=== PATIENT | female | born 1945 | race Caucasian/White ===

== ENCOUNTER 2018-02-14 09:16 | Day surgery (SDC) | payer MEDICARE, BC ==
[2018-02-13 08:34] VITALS: BMI 35.6
[~2018-02-14 09:16] MED LIST: LACTATED RINGERS 1,000 ML IV SCH
[2018-02-14 09:48] VITALS: RESP 16; TEMP 97
[2018-02-14] MEDS ORDERED: LIDOCAINE 1% 20 ML VIAL (10MG/ML) FOR IV START INTRADERMA ONE (09:53)
[2018-02-14] MEDS ORDERED: ACETAMINOPHEN TAB 500 MG TAB PO ONE (09:58)
[2018-02-14] MEDS ORDERED: PROPOFOL 10 MG/ML 20 ML VIAL IV ONE (13:20)
[2018-02-14] MEDS ORDERED: LIDOCAINE 1% INJ 10MG/ML (20 ML MDV) ONE (13:20)
[2018-02-14] MEDS ORDERED: fentaNYL (PF) 50 MCG/ML 2 ML AMP ONE (13:20)
--- NOTE | 2018-02-14 14:04 | P.PCN ---
Date of Procedure: 02/14/18 Procedure(s) Performed: Procedure: Colonoscopy and biopsy. Preoperative diagnosis: Rectal bleeding. Postoperative diagnosis: 1. 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 2. Isolated erosion in the terminal ileum of uncertain significance, biopsies obtained. 3. Normal colon exam biopsies obtained. 4. Low-grade internal hemorrhoids not bleeding at the time of this exam. Preparation: HalfLytely prep. Sedation: Was provided by anesthesia. Brief clinical history: The patient is a 72-year-old female who is scheduled for this evaluation because of intermittent rectal bleeding. She apparently had a colonoscopy around 2 years ago and was told she had hemorrhoids and she had polyps removed as well. Procedure: With the patient on her left lateral decubitus position and after informed consent and adequate sedation the perianal area was inspected and it showed external hemorrhoids and 2 fistulas openings on the right side and surrounding erythema and edema and excoriation but no spontaneous bleeding. No masses were felt on digital rectal examination. The Olympus CFQ 160L video colonoscope was then inserted in the rectum and the usual fashion and advanced to the cecum. I intubated the ileocecal valve and examined the terminal ileum. There was an isolated erosion in the terminal ileum of uncertain clinical significance, otherwise, the mucosa appeared healthy. The colon appeared healthy with no edema, erythema, friability, ulceration, exudation or spontaneous bleeding. I retroflexed endoscope in the rectum before the endoscope was withdrawn. There were low-grade internal hemorrhoids noted but no bleeding. I obtained random colon biopsies in addition to the biopsies in the terminal ileum. The patient tolerated the procedure well. Plan: The patient was reassured. Will await biopsy results and make further plans based on her course and biopsy results. She'll follow-up in the office as planned and I will keep you updated on her progress.
[2018-02-14 14:33] VITALS: BP 142/88; PULSE 60
== END 2018-02-14 14:53 | disposition home or self-care (01) ==
LOC: ORWHC2ENDO 09:16
DX: K52.9 Noninfective gastroenteritis and colitis, unspecified (principal); K62.5 Hemorrhage of anus and rectum; K60.3 Anal fistula; K63.3 Ulcer of intestine; K64.8 Other hemorrhoids; Z86.010 Personal history of colon polyps; K57.30 Diverticulosis of large intestine without perforation or abscess without bleeding; I10 Essential (primary) hypertension; E78.5 Hyperlipidemia, unspecified; I25.10 Atherosclerotic heart disease of native coronary artery without angina pectoris; K21.9 Gastro-esophageal reflux disease without esophagitis; Z95.1 Presence of aortocoronary bypass graft; Z79.899 Other long term (current) drug therapy
CPT/HCPCS: 88305; 45380; J2001; J3010; J2704

== ENCOUNTER 2018-05-29 16:16 | Emergency (ER) | payer MEDICARE, BC ==
[2018-05-29 16:39] VITALS: TEMP 97.8
--- NOTE | 2018-05-29 18:27 | US ---
EXAMINATION TYPE: US venous doppler duplex LE RT DATE OF EXAM: 05/29/2018 6:15 PM COMPARISON: NONE CLINICAL HISTORY: Pain. SIDE PERFORMED: TECHNIQUE: The lower extremity deep venous system is examined utilizing real time linear array sonog carlene with graded compression, doppler sonography and color-flow sonography. VESSELS IMAGED: External Iliac Vein (EIV) Common Femoral Vein Deep Femoral Vein Greater Saphenous Vein * Femoral Vein Popliteal Vein Right Leg: Positive for DVT in the Common Femoral Vein, Deep Femoral Vein and Popliteal Mario. IMPRESSION: There is deep venous thrombosis that appears acute in the right leg involving the femoral and popliteal vein.
[2018-05-29 19:32] LABS: Basophils % (A) 0 %; Eosinophils # (A) 0.5 k/uL (0-0.7); Eosinophils % (A) 6 %; HGB 13.3 gm/dL (11.4-16.0); Lymphocytes # (A) 1.6 k/uL (1.0-4.8); Lymphocytes % (A) 17 %; MCH 29.7 pg (25.0-35.0); MCHC 32.4 g/dL (31.0-37.0); MCV 91.6 fL (80.0-100.0); Monocytes # (A) 0.9 k/uL (0-1.0); Monocytes % (A) 10 %; Neutrophils # (A) 5.8 k/uL (1.3-7.7); Neutrophils % (A) 64 %; Platelet Count 218 k/uL (150-450); RBC 4.48 m/uL (3.80-5.40); WBC 9.1 k/uL (3.8-10.6)
[2018-05-29 19:41] LABS: INR 1.1 (<1.2); Partial Thromboplastin Time 23.2 sec (22.0-30.0); Prothrombin Time 10.3 sec (9.0-12.0)
[2018-05-29 19:42] LABS: Albumin 3.6 g/dL (3.5-5.0); Calcium 8.9 mg/dL (8.4-10.2); Potassium 3.8 mmol/L (3.5-5.1); Total Bilirubin 0.3 mg/dL (0.2-1.3)
[2018-05-29] MEDS ORDERED: HEPARIN SODIUM,PORCINE 5,000 UNIT/ML 1 ML VIAL IV PRN (19:50)
[2018-05-29] MEDS ORDERED: HEPARIN SODIUM,PORCINE 10,000 UNIT/ML 1 ML VIAL IV ONE (19:50)
[2018-05-29] MEDS ORDERED: HEPARIN SOD,PORK IN 0.45% NACL 25,000 UNIT in 0.45% NACL 1 500ML.BAG IV SCH (20:00)
--- NOTE | 2018-05-29 20:43 | CT ---
EXAMINATION TYPE: CT chest angio for PE DATE OF EXAM: 05/29/2018 COMPARISON: None HISTORY: Positive DVT CT DLP: 268.4 mGycm Automated exposure control for dose reduction was used. CONTRAST: CT Chest for pulmonary embolism performed with with IV Contrast, patient injected with 60 mL of Isovu e 370. There are 3-D post processed images. FINDINGS: There is some mild coarsening of interstitial pulmonary markings. There is hiatal hernia. Heart is sl ightly enlarged. There are multiple filling defects in right lower lobe pulmonary artery. There is filling defect in t he proximal right upper lobe pulmonary artery. The left pulmonary arteries appear normal. There is no mediastinal adenopathy. There are no hilar masses. The bony thorax is intact. Thoracic aorta is inta ct. There is no evidence of aneurysm or dissection. There is mild atheromatous change. Interventricular septum is in normal position. Right ventricle is not enlarged. IMPRESSION: There is emboli in the right lower lobe pulmonary artery and to lesser extent extending into the righ t upper lobe pulmonary artery. No evidence of right heart strain. This exam was discussed with CONNIE Alvarez at 8:40 PM.
--- NOTE | 2018-05-29 21:00 | ED ---
General Adult HPI - General Source: patient, RN notes reviewed Mode of arrival: ambulatory Limitations: no limitations <Antonio Mandel P - Last Filed: 05/29/18 21:12> <Lyubov Mcclure P - Last Filed: 05/29/18 22:12> - General Chief complaint: Extremity Injury, Lower Stated complaint: Leg Pain/swelling Time Seen by Provider: 05/29/18 17:33 - History of Present Illness Initial comments: 73-year-old female with a history of coronary artery disease, GERD, hyperlipidemia, hypertension presents to the emergency department for a chief complaint of right lower extremity swelling 10 days. Patient states that about 10 days ago she spent 2 days driving quite frequently for extended periods. Patient states that at that time she felt a pain behind her right knee but did not think anything of it. She states that since that time she has had progressive swelling and erythema in the right lower leg. 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 Patient denies any shortness of breath or chest pain. Patient denies any history of blood clots including DVT, PE, or stroke. Patient denies being on any blood thinners. Patient has no other complaints at this time including shortness of breath, chest pain, abdominal pain, nausea or vomiting, headache, or visual changes. (Antonio Mandel) - Related Data Home Medications Medication Instructions Recorded Confirmed Carvedilol [Coreg] 6.25 mg PO BID 11/30/15 05/29/18 Aspirin 81 mg PO DAILY 02/13/18 05/29/18 [place]-3 Fatty Acids/Fish Oil [Fish 1 cap PO DAILY 02/13/18 05/29/18 Oil 1,000 mg Softgel] Rosuvastatin [Crestor] 20 mg PO Q48H 02/13/18 05/29/18 Ubidecarenone [Co Q-10] 200 mg PO DAILY 02/13/18 05/29/18 Calcium Carbonate [Calcium] 600 mg PO DAILY 05/29/18 05/29/18 Docusate [Colace] 100 mg PO DAILY 05/29/18 05/29/18 Ibuprofen [Motrin Ib] 200 mg PO Q6H PRN 05/29/18 05/29/18 Mesalamine [Lialda] 1.2 gm PO TID 05/29/18 05/29/18 Omeprazole 40 mg PO DAILY 05/29/18 05/29/18 metroNIDAZOLE [Flagyl] 500 mg PO TID 05/29/18 05/29/18 Allergies Allergy/AdvReac Type Severity Reaction Status Date / Time No Known Allergies Allergy Verified 05/29/18 17:31 Review of Systems ROS Other: All systems not noted in ROS Statement are negative. <Antonio Mandel P - Last Filed: 05/29/18 21:12> ROS Other: All systems not noted in ROS Statement are negative. <Lyubov Mcclure P - Last Filed: 05/29/18 22:12> ROS Statement: Those systems with pertinent positive or pertinent negative responses have been documented in the HPI. Past Medical History Past Medical History: Coronary Artery Disease (CAD), GERD/Reflux, Hyperlipidemia , Hypertension Additional Past Medical History / Comment(s): "sore" by the rectum w/ some bleeding,painful with bowel movements History of Any Multi-Drug Resistant Organisms: None Reported Past Surgical History: Coronary Bypass/CABG, Heart Catheterization Additional Past Surgical History / Comment(s): deviated septum repair Past Anesthesia/Blood Transfusion Reactions: No Reported Reaction Past Psychological History: No Psychological Hx Reported Smoking Status: Never smoker Past Alcohol Use History: None Reported Past Drug Use History: None Reported - Past Family History Mother Family Medical History: No Reported History <Antonio Mandel P - Last Filed: 05/29/18 21:12> General Exam Limitations: no limitations General appearance: alert, in no apparent distress Head exam: Present: atraumatic, normocephalic, normal inspection Eye exam: Present: normal appearance, PERRL, EOMI. Absent: scleral icterus, conjunctival injection, periorbital swelling ENT exam: Present: normal exam, normal oropharynx, mucous membranes moist, normal external ear exam Neck exam: Present: normal inspection, full ROM. Absent: tenderness, meningismus, lymphadenopathy Respiratory exam: Present: normal lung sounds bilaterally. Absent: respiratory distress, wheezes, rales, rhonchi, stridor Cardiovascular Exam: Present: regular rate, normal rhythm, normal heart sounds. Absent: systolic murmur, diastolic murmur, rubs, gallop, clicks Neurological exam: Present: alert, oriented X3, CN II-XII intact Psychiatric exam: Present: normal affect, normal mood <TequilaAntonio arnett P - Last Filed: 05/29/18 21:12> Vital Signs 05/29/18 05/29/18 05/29/18 16:35 19:20 20:00 Temperature 97.8 F Pulse Rate 78 71 86 Respiratory 108 H 17 16 Rate Blood Pressure 185/95 176/85 O2 Sat by Pulse 99 98 100 Oximetry 05/29/18 21:30 Temperature Pulse Rate 60 Respiratory 16 Rate Blood Pressure 172/78 O2 Sat by Pulse 100 Oximetry EKG Findings - EKG Comments: EKG Findings:: Normal sinus rhythm, ventricular rate 60, FL interval 194, QRS duration 84, QTC 420, T-wave inversion in anterior leads <Antonio Mandel P - Last Filed: 05/29/18 21:12> Medical Decision Making - Lab Data Result diagrams: 05/29/18 18:53 05/29/18 18:53 - EKG Data -: EKG Interpreted by Me (and Dr Mcclure) When compared to previous EKG there are: previous EKG unavailable - Radiology Data Radiology results: report reviewed, image reviewed <TequilaSandraAntonio P - Last Filed: 05/29/18 21:12> - Lab Data Result diagrams: 05/29/18 18:53 05/29/18 18:53 <Lyubov Mcclure P - Last Filed: 05/29/18 22:12> - Medical Decision Making 73-year-old female with a history of GERD, hypertension, hyperlipidemia presents to the emergency department for a chief complaint of right lower extremity swelling and erythema 10 days. Patient states she was driving quite often for extended periods for 2 days about 10 days ago. She states that at that time she noticed the pain in her stereo right knee. Patient states that since that time she has had progressive erythema and edema of the right lower extremity. Patient denies a history of DVT or PE. She is not currently on any blood thinners. At when patient arrives to the emergency department her vitals are stable. Respiratory rate was incorrectly recorded as 108 and was instead 18. Patient is well-appearing and 99% on room air. Ultrasound did reveal a positive DVT in the right common femoral vein, deep femoral vein, popliteal vein. Patient was started on high intensity heparin. Because of this labs were ordered and CT a was also ordered. CBC and CMP unremarkable. Coag patient panel within normal limits. CT chest angiogram did reveal an emboli in the right lower lobe pulmonary artery and to a lesser extent extending into the right upper lobe pulmonary artery. No evidence of right heart strain. EKG was ordered at this time which did show a normal sinus rhythm with a ventricular rate of 60. Patient does have T-wave abnormalities in anterior leads. History of CABG years ago. Cardiac panel and troponins were ordered. Patient will be admitted. (Antonio Mandel) I personally saw and examined the patient. I reviewed and agree with the mid- level provider findings including all diagnostic interpretations and treatment plans as written unless otherwise stated. I was present for mckeon portions of any procedures performed. Patient care was discussed with the admitting physician Dr. dickey who stated that based on EKG with no acute right heart strain, CT with no acute right heart strain, negative troponins the patient is stable for discharge home on oral anticoagulation. Patient is agreeable with this plan. Patient was discharged home with by mouth L Palmira 10 mg twice a day for 7 days. Return parameters and follow-up was stressed to the patient. (Lyubov Mcclure) - Lab Data Lab Results 05/29/18 05/29/18 05/29/18 Range/Units 18:53 18:53 18:53 WBC 9.1 (3.8-10.6) k/uL RBC 4.48 (3.80-5.40) m/uL Hgb 13.3 (11.4-16.0) gm/dL Hct 41.0 (34.0-46.0) % MCV 91.6 (80.0-100.0) fL MCH 29.7 (25.0-35.0) pg MCHC 32.4 (31.0-37.0) g/dL RDW 13.0 (11.5-15.5) % Plt Count 218 (150-450) k/uL Neutrophils % 64 % Lymphocytes % 17 % Monocytes % 10 % Eosinophils % 6 % Basophils % 0 % Neutrophils # 5.8 (1.3-7.7) k/uL Lymphocytes # 1.6 (1.0-4.8) k/uL Monocytes # 0.9 (0-1.0) k/uL Eosinophils # 0.5 (0-0.7) k/uL Basophils # 0.0 (0-0.2) k/uL PT 10.3 (9.0-12.0) sec INR 1.1 (<1.2) APTT 23.2 (22.0-30.0) sec Sodium 139 (137-145) mmol/L Potassium 3.8 (3.5-5.1) mmol/L Chloride 105 (98-107) mmol/L Carbon Dioxide 25 (22-30) mmol/L Anion Gap 9 mmol/L BUN 22 H (7-17) mg/dL Creatinine 1.02 (0.52-1.04) mg/dL Est GFR (CKD-EPI)AfAm 64 (>60 ml/min/1.73 sqM) Est GFR (CKD-EPI)NonAf 55 (>60 ml/min/1.73 sqM) Glucose 67 L (74-99) mg/dL Calcium 8.9 (8.4-10.2) mg/dL Magnesium (1.6-2.3) mg/dL Total Bilirubin 0.3 (0.2-1.3) mg/dL AST 22 (14-36) U/L ALT 23 (9-52) U/L Alkaline Phosphatase 50 (38-126) U/L Total Creatine Kinase (30-135) U/L CK-MB (CK-2) (0.0-2.4) ng/mL CK-MB (CK-2) Rel Index Troponin I (0.000-0.034) ng/mL Total Protein 7.0 (6.3-8.2) g/dL Albumin 3.6 (3.5-5.0) g/dL 05/29/18 05/29/18 Range/Units 18:53 19:20 WBC (3.8-10.6) k/uL RBC (3.80-5.40) m/uL Hgb (11.4-16.0) gm/dL Hct (34.0-46.0) % MCV (80.0-100.0) fL MCH (25.0-35.0) pg MCHC (31.0-37.0) g/dL RDW (11.5-15.5) % Plt Count (150-450) k/uL Neutrophils % % Lymphocytes % % Monocytes % % Eosinophils % % Basophils % % Neutrophils # (1.3-7.7) k/uL Lymphocytes # (1.0-4.8) k/uL Monocytes # (0-1.0) k/uL Eosinophils # (0-0.7) k/uL Basophils # (0-0.2) k/uL PT (9.0-12.0) sec INR (<1.2) APTT (22.0-30.0) sec Sodium (137-145) mmol/L Potassium (3.5-5.1) mmol/L Chloride (98-107) mmol/L Carbon Dioxide (22-30) mmol/L Anion Gap mmol/L BUN (7-17) mg/dL Creatinine (0.52-1.04) mg/dL Est GFR (CKD-EPI)AfAm (>60 ml/min/1.73 sqM) Est GFR (CKD-EPI)NonAf (>60 ml/min/1.73 sqM) Glucose (74-99) mg/dL Calcium (8.4-10.2) mg/dL Magnesium 2.2 (1.6-2.3) mg/dL Total Bilirubin (0.2-1.3) mg/dL AST (14-36) U/L ALT (9-52) U/L Alkaline Phosphatase (38-126) U/L Total Creatine Kinase 58 (30-135) U/L CK-MB (CK-2) 0.6 (0.0-2.4) ng/mL CK-MB (CK-2) Rel Index 1.0 Troponin I <0.012 (0.000-0.034) ng/mL Total Protein (6.3-8.2) g/dL Albumin (3.5-5.0) g/dL Disposition Time of Disposition: 21:14 <Antonio Mandel P - Last Filed: 05/29/18 21:12> Is patient prescribed a controlled substance at d/c from ED?: No <Lyubov Mcclure P - Last Filed: 05/29/18 22:12> Clinical Impression: Pulmonary embolism, DVT, femoral, acute Disposition: HOME SELF-CARE Condition: Good Instructions: Pulmonary Embolism (ED), Deep Vein Thrombosis (ED) Referrals: Damien Donahue MD [Primary Care Provider] - 1-2 days Addendum entered and electronically signed by Antonio Mandel PA-C 05/29/18 21 :19: Extremity exam: Right leg is erythematous and warm to touch. It is edematous and larger in diameter than left leg. DP pulse 2+. Sensation intact in lower extremity. Negative Homans sign. No pallor noted.
[2018-05-29] MEDS ORDERED: SODIUM CHLORIDE 0.9% 1,000 ML IV STA (21:11)
[2018-05-29] MEDS ORDERED: NALOXONE 0.4 MG/ML 1 ML VIAL IV PRN (21:15)
[2018-05-29 21:34] LABS: Creatine Kinase 58 U/L (30-135)
[2018-05-29 21:47] LABS: Creatine Kinase MB 0.6 ng/mL (0.0-2.4); Troponin I <0.012 ng/mL (0.000-0.034)
[2018-05-29] MEDS ORDERED: APIXABAN 5 MG TAB PO STA (22:14)
--- NOTE | 2018-05-29 22:17 | ED ---
Medical Decision Making - Lab Data Result diagrams: 05/29/18 18:53 05/29/18 18:53 Lab Results 05/29/18 05/29/18 05/29/18 Range/Units 18:53 18:53 18:53 WBC 9.1 (3.8-10.6) k/uL RBC 4.48 (3.80-5.40) m/uL Hgb 13.3 (11.4-16.0) gm/dL Hct 41.0 (34.0-46.0) % MCV 91.6 (80.0-100.0) fL MCH 29.7 (25.0-35.0) pg MCHC 32.4 (31.0-37.0) g/dL RDW 13.0 (11.5-15.5) % Plt Count 218 (150-450) k/uL Neutrophils % 64 % Lymphocytes % 17 % Monocytes % 10 % Eosinophils % 6 % Basophils % 0 % Neutrophils # 5.8 (1.3-7.7) k/uL Lymphocytes # 1.6 (1.0-4.8) k/uL Monocytes # 0.9 (0-1.0) k/uL Eosinophils # 0.5 (0-0.7) k/uL Basophils # 0.0 (0-0.2) k/uL PT 10.3 (9.0-12.0) sec INR 1.1 (<1.2) APTT 23.2 (22.0-30.0) sec Sodium 139 (137-145) mmol/L Potassium 3.8 (3.5-5.1) mmol/L Chloride 105 (98-107) mmol/L Carbon Dioxide 25 (22-30) mmol/L Anion Gap 9 mmol/L BUN 22 H (7-17) mg/dL Creatinine 1.02 (0.52-1.04) mg/dL Est GFR (CKD-EPI)AfAm 64 (>60 ml/min/1.73 sqM) Est GFR (CKD-EPI)NonAf 55 (>60 ml/min/1.73 sqM) Glucose 67 L (74-99) mg/dL Calcium 8.9 (8.4-10.2) mg/dL Magnesium (1.6-2.3) mg/dL Total Bilirubin 0.3 (0.2-1.3) mg/dL AST 22 (14-36) U/L ALT 23 (9-52) U/L Alkaline Phosphatase 50 (38-126) U/L Total Creatine Kinase (30-135) U/L Total Protein 7.0 (6.3-8.2) g/dL Albumin 3.6 (3.5-5.0) g/dL 05/29/18 05/29/18 Range/Units 18:53 19:20 WBC (3.8-10.6) k/uL RBC (3.80-5.40) m/uL Hgb (11.4-16.0) gm/dL Hct (34.0-46.0) % MCV (80.0-100.0) fL MCH (25.0-35.0) pg MCHC (31.0-37.0) g/dL RDW (11.5-15.5) % Plt Count (150-450) k/uL Neutrophils % % Lymphocytes % % Monocytes % % Eosinophils % % Basophils % % Neutrophils # (1.3-7.7) k/uL Lymphocytes # (1.0-4.8) k/uL Monocytes # (0-1.0) k/uL Eosinophils # (0-0.7) k/uL Basophils # (0-0.2) k/uL PT (9.0-12.0) sec INR (<1.2) APTT (22.0-30.0) sec Sodium (137-145) mmol/L Potassium (3.5-5.1) mmol/L Chloride (98-107) mmol/L Carbon Dioxide (22-30) mmol/L Anion Gap mmol/L BUN (7-17) mg/dL Creatinine (0.52-1.04) mg/dL Est GFR (CKD-EPI)AfAm (>60 ml/min/1.73 sqM) Est GFR (CKD-EPI)NonAf (>60 ml/min/1.73 sqM) Glucose (74-99) mg/dL Calcium (8.4-10.2) mg/dL Magnesium 2.2 (1.6-2.3) mg/dL Total Bilirubin (0.2-1.3) mg/dL AST (14-36) U/L ALT (9-52) U/L Alkaline Phosphatase (38-126) U/L Total Creatine Kinase 58 (30-135) U/L Total Protein (6.3-8.2) g/dL Albumin (3.5-5.0) g/dL Disposition Clinical Impression: Pulmonary embolism, DVT, femoral, acute Disposition: ADMITTED IP TO THIS HOSP Condition: Good Referrals: Damien Donahue MD [Primary Care Provider] - 1-2 days
[2018-05-29 22:55] VITALS: BP 170/79; PULSE 67; RESP 19
== END 2018-05-29 22:58 | disposition home or self-care (01) ==
LOC: EC 16:16
DX: I26.99 Other pulmonary embolism without acute cor pulmonale (principal); I82.411 Acute embolism and thrombosis of right femoral vein; R94.31 Abnormal electrocardiogram [ECG] [EKG]; E78.5 Hyperlipidemia, unspecified; I10 Essential (primary) hypertension; I25.10 Atherosclerotic heart disease of native coronary artery without angina pectoris; K21.9 Gastro-esophageal reflux disease without esophagitis; Z79.82 Long term (current) use of aspirin; Z79.899 Other long term (current) drug therapy; Z95.1 Presence of aortocoronary bypass graft; Z53.8 Procedure and treatment not carried out for other reasons
CPT/HCPCS: 99284; 96365; 96366; 96376; 36415; 93005; 80053; 82550; 82553; 83735; 84484; 85025; 85610; 85730; 93971; 71275; J1644 ×2; Q9967

== ENCOUNTER → 2018-09-20 | Outpatient (CLI) | payer MEDICARE, BC ==
--- NOTE | 2018-09-22 08:43 | MM ---
Reason for exam: screening (asymptomatic). Last mammogram was performed 4 years and 11 months ago. History: Patient is postmenopausal and had first child at age 36. Family history of breast cancer. Physical Findings: A clinical breast exam by your physician is recommended on an annual basis and results should be correlated with mammographic findings. MG Screening Mammo w CAD Bilateral CC and MLO view(s) were taken. Prior study comparison: October 19, 2013, bilateral digital screening mammo w/CAD. March 16, 2003, bilateral screening mammogram. Finding #1: There is a typically benign equal density (isodense), circumscribed oval mass located 3 cm from the nipple in the lower inner quadrant, middle position of the left breast. Finding #2: There are typically benign vascular, diffuse/scattered calcifications in both breasts. New finding and increase in size since October 19, 2013. ASSESSMENT: Incomplete: need additional imaging evaluation, BI-RAD 0 RECOMMENDATION: Special view mammogram of the left breast. If lesion persists on supplemental views, image directed ultrasound is recommended. [facility] will attempt to contact patient to return for supplemental views and ultrasound if indicated.
== END | disposition home or self-care (01) ==
LOC: RADMAMWWP 14:05
PROVIDERS: ATTEND Family Medicine
DX: Z12.31 Encounter for screening mammogram for malignant neoplasm of breast (principal)
CPT/HCPCS: 77067

== ENCOUNTER → 2018-10-18 | Outpatient (CLI) | payer MEDICARE, BC ==
--- NOTE | 2018-10-20 09:01 | MM ---
Reason for exam: additional evaluation requested from abnormal screening. Last mammogram was performed 1 month ago. History: Patient is postmenopausal, history of other cancer, and had first child at age 36. Family history of breast cancer. Physical Findings: Nurse Summary: 0.5cm nodule in the left breast at 2 o'clock (nurse roman). MG Work Up Mamm w CAD LT Spot compression CC, spot compression MLO, and LM view(s) were taken of the left breast. Prior study comparison: September 20, 2018, bilateral MG screening mammo w CAD. October 19, 2013, bilateral digital screening mammo w/CAD. The breast tissue is heterogeneously dense. This may lower the sensitivity of mammography. Finding: There is a 6 mm equal density (isodense) mass in the inner quadrant, central position of the left breast. These results were verbally communicated with the patient and result sheet given to the patient on 10/18/18. ASSESSMENT: Incomplete: need additional imaging evaluation, BI-RAD 0 RECOMMENDATION: Ultrasound of the left breast.
--- NOTE | 2018-10-20 09:02 | USB ---
Reason for exam: additional evaluation requested from abnormal screening. History: Patient is postmenopausal, history of other cancer, and had first child at age 36. Family history of breast cancer. US Breast Workup Limited LT Left limited breast ultrasound including focal area of concern, retroareolar and axilla demonstrates a 0.5 x 0.3 x 0.2cm oval, cystic lesion at 8 o'clock, believed to correspond to mammographic abnormality. These results were verbally communicated with the patient and result sheet given to the patient on 10/18/18. ASSESSMENT: Benign, BI-RAD 2 RECOMMENDATION: Return to routine screening mammogram schedule for both breasts.
== END | disposition home or self-care (01) ==
LOC: RADMAMWWP 15:16
PROVIDERS: ATTEND Family Medicine
DX: R92.8 Other abnormal and inconclusive findings on diagnostic imaging of breast (principal)
CPT/HCPCS: 77065

== ENCOUNTER → 2018-10-28 | Outpatient (CLI) | payer MEDICARE, BC ==
--- NOTE | 2018-10-30 16:00 | PE ---
EXAMINATION TYPE: PET CT fusion skull to thigh DATE OF EXAM: 10/28/2018 COMPARISON: CT chest for pulmonary embolism dated 05/29/2018 HISTORY: Squamous cell anal cancer. Initial evaluation. No prior chemotherapy, radiation, or surgery. TECHNIQUE: Following the intravenous administration of 12.538 mCi of F-18 FDG, whole body images are performed from the skull base to the midthigh. Images are reviewed on the computer in the coronal, axial, and sagittal planes. Reconstructed rotating images are created on independent workstation and reviewed on the computer. A localization and attenuation correction CT is performed in conjunction with the PET scan. SCAN: Initial treatment strategy. FINDINGS: Thoracic background: 2.69 Abdominal background: 3.52 SKULL BASE AND NECK: Right supraclavicular adenopathy is seen as described below. No additional susp icious foci of hypermetabolic uptake. CHEST, MEDIASTINUM, AND HILAR REGION: There is hypermetabolic uptake within numerous mediastinal lymp h nodes. Right paratracheal lymph node has a maximum SUV of 4.63. Pretracheal lymph node has a maximu m SUV of 4.94. Subcarinal lymph node has a maximum SUV of 6.84. Right supraclavicular adenopathy is a lso seen with a maximum SUV of 3.86. ABDOMEN AND PELVIS: Although this patient states there is been no surgical history sutures are seen a long the anal verge. Diffuse hypermetabolic uptake in a long segment is seen from the ischial tuberos ities to the anal verge. This has a maximum SUV of 7.4. A moderate hiatal hernia is seen. Diffuse FDG avidity throughout the gastric fundus and body is noted that could relate to gastritis. Endoscopy could assess the stomach. . OSSEOUS STRUCTURES: Hypometabolic within the right iliac bone and sacrum as well as the L5 and L4 jareth tebral body are seen, to a lesser degree throughout the remainder of the spine. Subtle lytic lesion i s noted within the right iliac bone on image 182 measuring 1.2 cm. This is also hypermetabolic with a maximum SUV of 2.[address]: Paranasal sinuses and mastoid air cells are well aerated. Moderate multilevel degenerative changes of the cervical spine are seen. Post CABG changes of the mediastinum are noted. Multifocal at electasis is present. No suspicious pulmonary mass. Mediastinal adenopathy is seen as described above . Moderate hiatal hernia is also described above. Ascending thoracic aorta is upper limits of normal size measuring 3.9 cm. The unenhanced liver is grossly unremarkable. The unenhanced spleen, and adren al glands, and left kidney are unremarkable. Emanating from the superior pole of the right kidney the re is a slightly hyperdense approximately 1 cm lesion or early characterize without contrast. This co uld relate to a solid lesion or hyperdense renal cyst (proteinaceous and/or hemorrhagic). Surgical sutures are seen near the anal verge. No local adenopathy is present. Few scattered colonic diverticula are seen without pericolonic fat stranding. IMPRESSION: 1. Although the patient denies surgical history hypermetabolic activity is seen along the anal verge surrounding surgical sutures with a maximum SUV of 7.4 cm thought to represent the patient's primary neoplasm. No local adenopathy. 2. Hypermetabolic mediastinal and right supraclavicular lymph nodes are noted with marked hypermetabo lic activity of 6.8 of a subcarinal lymph node. Therefore these are unlikely to be reactive in concer evaristo for metastasis. No primary lung lesion is identified. Therefore bronchoscopy with lymph node tis jessica sampling could be performed. 3. Subtle lytic right iliac bone lesion is hypometabolic and nonspecific. This could relate to a eligio gn etiology. 4. Slightly hyperdense right superior pole renal lesion for which renal ultrasound is recommended as this could represent a proteinaceous/hemorrhagic cyst or small solid mass.
== END | disposition home or self-care (01) ==
LOC: RADPETMAIN 10:48
PROVIDERS: ATTEND Internal Medicine Hematology & Oncology
DX: C44.520 Squamous cell carcinoma of anal skin (principal); M89.9 Disorder of bone, unspecified; N28.9 Disorder of kidney and ureter, unspecified
CPT/HCPCS: 78815; A9552

== ENCOUNTER 2019-01-27 12:32 | Inpatient (IN) | payer MEDICARE, BC ==
[2019-01-27] MEDS ORDERED: ONDANSETRON 4 MG/2 ML VIAL IVP STA (13:34)
[2019-01-27] MEDS ORDERED: SODIUM CHLORIDE 0.9% 1,000 ML IV ONE (13:34)
--- NOTE | 2019-01-27 13:34 | ED ---
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 She states that every time she is given a chemotherapy infusion she has nausea and decreased appetite. She states she has not had anything substantial to eat in the past 6 days. She states she has been admitted for IV hydration in the past. Patient states that she also has significant rectal pain after the radiation she states that her [place] 5 mg is not helping alleviate this. Patient denies any fever or chills night sweats chest pain shortness breath or leg swelling she denies vomiting she denies abdominal pain she denies any headache dizziness or any other associated symptoms. Upon arrival patient's vital signs within acceptable limits - Related Data Home Medications Medication Instructions Recorded Confirmed Carvedilol [Coreg] 6.25 mg PO BID 11/30/15 05/29/18 Aspirin 81 mg PO DAILY 02/13/18 05/29/18 [place]-3 Fatty Acids/Fish Oil [Fish 1 cap PO DAILY 02/13/18 05/29/18 Oil 1,000 mg Softgel] Rosuvastatin [Crestor] 20 mg PO Q48H 02/13/18 05/29/18 Ubidecarenone [Co Q-10] 200 mg PO DAILY 02/13/18 05/29/18 Calcium Carbonate [Calcium] 600 mg PO DAILY 05/29/18 05/29/18 Docusate [Colace] 100 mg PO DAILY 05/29/18 05/29/18 Ibuprofen [Motrin Ib] 200 mg PO Q6H PRN 05/29/18 05/29/18 Mesalamine [Lialda] 1.2 gm PO TID 05/29/18 05/29/18 Omeprazole 40 mg PO DAILY 05/29/18 05/29/18 metroNIDAZOLE [Flagyl] 500 mg PO TID 05/29/18 05/29/18 Previous Rx's Medication Instructions Recorded Apixaban [Eliquis] 10 mg PO BID #30 tab 05/29/18 Allergies Allergy/AdvReac Type Severity Reaction Status Date / Time No Known Allergies Allergy Verified 01/27/19 12:44 Review of Systems ROS Statement: Those systems with pertinent positive or pertinent negative responses have been documented in the HPI. ROS Other: All systems not noted in ROS Statement are negative. Past Medical History Past Medical History: Coronary Artery Disease (CAD), GERD/Reflux, Hyperlipidemia, Hypertension Additional Past Medical History / Comment(s): "sore" by the rectum w/ some bleeding,painful with bowel movements History of Any Multi-Drug Resistant Organisms: None Reported Past Surgical History: Coronary Bypass/CABG, Heart Catheterization Additional Past Surgical History / Comment(s): deviated septum repair Past Anesthesia/Blood Transfusion Reactions: No Reported Reaction Past Psychological History: No Psychological Hx Reported Smoking Status: Never smoker Past Alcohol Use History: None Reported Past Drug Use History: None Reported - Past Family History Mother Family Medical History: No Reported History General Exam - General Exam Comments Initial Comments: General: The patient is awake and alert, in no distress, and does not appear acutely ill. Eye: +3 mm pupils are equal, round and reactive to light, extra-ocular movements are intact. No nystagmus. There is normal conjunctiva bilaterally. No signs of icterus. Ears, nose, mouth and throat: There are dry mucous membranes and no oral lesions. Neck: The neck is supple, there is no tenderness or JVD. Cardiovascular: There is a regular rate and rhythm. No murmur, rub or gallop is appreciated. Respiratory: Lungs are clear to auscultation, respirations are non-labored, breath sounds are equal. No wheezes, stridor, rales, or rhonchi. Gastrointestinal: Soft, non-distended, non-tender abdomen without masses or organomegaly noted. There is no rebound or guarding present. Musculoskeletal: Normal ROM, no tenderness. Strength 5/5. Sensation intact. Radial pulses equal bilaterally 2+. Neurological: A&O x 3. CN II-XII intact, There are no obvious motor or sensory deficits. Coordination appears grossly intact. Speech is normal. Skin: Skin is warm and dry and no rashes or lesions are noted. Delay skin turgor Psychiatric: Cooperative, appropriate mood & affect, normal judgment. Limitations: no limitations Course Vital Signs 01/27/19 12:41 Temperature 98.8 F Pulse Rate 82 Respiratory 16 Rate Blood Pressure 117/64 O2 Sat by Pulse 98 Oximetry Medical Decision Making - Medical Decision Making 73-year-old female presenting for possible dehydration. She states she has had nausea and no appetite since her last round of chemotherapy infusion. She states that this happened with the initial. She complains of rectal pain after radiation. [place] not alleviating pain at home. Patient was provided IV hydration in the ER. Antiemetics as well as pain medications. Patient after studies concerning for dehydration as well as physical examination findings. Patient will be admitted for IV hydration. In addition patient has significant leukopenia and slight anemia most likely secondary to chemotherapy treatment r egime--denies fever/symptoms concerning for infectious complaint, denies melena or hematochezia. Patient prefers admission. I discussed the case with attending Dr. Freitas who is agreeable with care plan and admission at this time. Patient transferred to floor in stable condition. Dr. Freiats spoke with admitting provider Dr. Hanna - Lab Data Result diagrams: 01/27/19 14:03 01/27/19 14:03 Lab Results 01/27/19 01/27/19 Range/Units 14:03 14:03 WBC 0.2 L* (3.8-10.6) k/uL RBC 3.31 L (3.80-5.40) m/uL Hgb 9.9 L (11.4-16.0) gm/dL Hct 29.8 L (34.0-46.0) % MCV 89.9 (80.0-100.0) fL MCH 30.0 (25.0-35.0) pg MCHC 33.3 (31.0-37.0) g/dL RDW 15.0 (11.5-15.5) % Plt Count 101 L (150-450) k/uL Differential Comment Manual Slide Review Performed RBC Morphology Normal Sodium 134 L (137-145) mmol/L Potassium 4.1 (3.5-5.1) mmol/L Chloride 102 (98-107) mmol/L Carbon Dioxide 25 (22-30) mmol/L Anion Gap 7 mmol/L BUN 19 H (7-17) mg/dL Creatinine 0.79 (0.52-1.04) mg/dL Est GFR (CKD-EPI)AfAm 87 (>60 ml/min/1.73 sqM) Est GFR (CKD-EPI)NonAf 76 (>60 ml/min/1.73 sqM) Glucose 121 H (74-99) mg/dL Calcium 8.0 L (8.4-10.2) mg/dL Magnesium 2.3 (1.6-2.3) mg/dL Total Bilirubin 0.5 (0.2-1.3) mg/dL AST 13 L (14-36) U/L ALT 23 (9-52) U/L Alkaline Phosphatase 51 (38-126) U/L Total Protein 5.9 L (6.3-8.2) g/dL Albumin 3.2 L (3.5-5.0) g/dL Disposition Clinical Impression: Nausea, Dehydration, Leukopenia, Anemia, History of squamous cell carcinoma Disposition: ADMITTED IP TO THIS HOSP Condition: Stable Is patient prescribed a controlled substance at d/c from ED?: No Time of Disposition: 15:20 Decision to Admit Reason: Admit from EC Decision Date: 01/27/19 Decision Time: 15:21
[2019-01-27] MEDS ORDERED: MORPHINE SULFATE 4 MG/ML SYRINGE IVP STA (13:57)
[2019-01-27 14:19] LABS: HCT 29.8 % (34.0-46.0); HGB 9.9 gm/dL (11.4-16.0); MCHC 33.3 g/dL (31.0-37.0); MCV 89.9 fL (80.0-100.0); Mean Platelet Volume 7.7; Platelet Count 101 k/uL (150-450); RBC 3.31 m/uL (3.80-5.40)
[2019-01-27 14:23] LABS: WBC 0.2 k/uL (3.8-10.6)
[2019-01-27 14:25] LABS: Albumin 3.2 g/dL (3.5-5.0); Magnesium 2.3 mg/dL (1.6-2.3); Potassium 4.1 mmol/L (3.5-5.1); Total Bilirubin 0.5 mg/dL (0.2-1.3); Total Protein 5.9 g/dL (6.3-8.2)
[2019-01-27] MEDS ORDERED: NALOXONE 0.4 MG/ML 1 ML VIAL IV PRN (15:18)
[2019-01-27] MEDS ORDERED: SODIUM CHLORIDE 0.9% 1,000 ML IV SCH (15:30)
[2019-01-27 16:23] VITALS: BMI 34.4
[2019-01-27] MEDS: MORPHINE SULFATE 4 MG/ML SYRINGE IV PRN ×2 (17:29→21:39)
[2019-01-27] MEDS: LACTATED RINGERS 1,000 ML IV SCH (17:34)
[2019-01-27] MEDS: ATORVASTATIN 40 MG TAB PO SCH (18:26)
[2019-01-27] MEDS: CARVEDILOL 6.25 MG TAB PO SCH (18:27)
[2019-01-27] MEDS: PANTOPRAZOLE 40 MG TABLET PO SCH (20:01)
[2019-01-27] MEDS: HYDROcodone/APAP 5-325MG 1 EACH TAB PO PRN (20:01)
[2019-01-27] MEDS: APIXABAN 5 MG TAB PO SCH (20:02)
[2019-01-28] MEDS: MORPHINE SULFATE 4 MG/ML SYRINGE IV PRN ×3 (00:57→20:10)
[2019-01-28] MEDS: DOCUSATE 100 MG CAP PO PRN (00:57)
[2019-01-28] MEDS: LACTATED RINGERS 1,000 ML IV SCH ×3 (02:27→17:29)
[2019-01-28] MEDS: HYDROcodone/APAP 5-325MG 1 EACH TAB PO PRN (04:22)
[2019-01-28] MEDS: APIXABAN 5 MG TAB PO SCH ×2 (08:41→20:10)
[2019-01-28] MEDS: ASPIRIN 81 MG PO SCH (08:41)
[2019-01-28] MEDS: CARVEDILOL 6.25 MG TAB PO SCH ×2 (08:41→17:35)
[2019-01-28] MEDS: PANTOPRAZOLE 40 MG TABLET PO SCH ×2 (08:41→20:10)
[2019-01-28] MEDS: LOSARTAN 25 MG TAB PO SCH (08:41)
[2019-01-28] MEDS: ACETAMINOPHEN TAB 325 MG TAB PO PRN ×2 (11:55→18:08)
[2019-01-28] MEDS ORDERED: VANCOMYCIN IV PER PHARMACY 1 EACH MISC MISCELLANE PRN (12:25)
[2019-01-28 12:39] LABS: HCT 23.4 % (34.0-46.0); MCH 30.5 pg (25.0-35.0); MCHC 33.1 g/dL (31.0-37.0); MCV 92.2 fL (80.0-100.0); Mean Platelet Volume 8.3; RBC 2.54 m/uL (3.80-5.40); RDW 15.5 % (11.5-15.5)
[2019-01-28] MEDS ORDERED: VANCOMYCIN 1,750 MG in SODIUM CHLORIDE 0.9% 500 ML 500 ML IVPB ONE (12:45)
[2019-01-28 12:47] LABS: WBC 0.3 k/uL (3.8-10.6)
[2019-01-28 12:50] LABS: HGB 7.7 gm/dL (11.4-16.0)
[2019-01-28 12:51] LABS: Platelet Count 57 k/uL (150-450)
[2019-01-28 13:12] LABS: Calcium 7.1 mg/dL (8.4-10.2); Magnesium 1.9 mg/dL (1.6-2.3); Potassium 3.6 mmol/L (3.5-5.1)
--- NOTE | 2019-01-28 13:17 | XR ---
EXAMINATION TYPE: XR chest 2V DATE OF EXAM: 01/28/2019 HISTORY: Febrile neutropenia. REFERENCE: Previous study dated 03/10/2010. FINDINGS: There is been a midline sternotomy. The lungs are overinflated. The lungs are clear. Pleura l spaces are clear. Heart size is normal. IMPRESSION: COPD.
[2019-01-28] MEDS: CEFEPIME 2 GM in SODIUM CHLORIDE 0.9% 100 ML IVPB SCH ×2 (14:00→21:56)
[2019-01-28] MEDS: FILGRASTIM-SNDZ 480 MCG/0.8 ML SYRINGE SQ SCH (14:26)
--- NOTE | 2019-01-28 15:20 | P.HPIM ---
History of Present Illness H&P Date: 01/28/19 Chief Complaint: (Weak and tired History of presenting complaint: This is a very pleasant 73-year-old patient of Dr. Donahue. Followed by oncologist Dr. Aguilera. Patient was diagnosed with squamous cell carcinoma of the rectum early this year. Has received radiation chemotherapy. Last radiation treatment was a week ago. 10 days ago was was a last resort chemotherapy. It appears to have currently being treated. At about the exact status of the same. Patient is a local rectal pain. The patient for about lasted for 12 days has had very poor appetite. Having a lot of nausea. Very weak. Barely able to get about. Also insomnia. Tired and rundown. Bowel movements have been erratic. Chronic stable medical conditions include coronary artery disease, GERD, hypertension, hyperlipidemia. Patient started on IV fluids in the ER. Patient also got painful oral ulcers. Also had fever Review of systems: GEN.: Weak and tired EYES: None HEENT: None NECK: None RESPIRATORY: None CARDIOVASCULAR: None GASTROINTESTINAL: As above] GENITOURINARY: None MUSCULOSKELETAL: None LYMPHATICS: None HEMATOLOGICAL: None PSYCHIATRY: None NEUROLOGICAL: None Past medical history: This, so The Rectum Getting Chemoradiation Treatment, Coronary Artery Disease, GERD, Hypertension, Hyperlipidemia, Chronic Insomnia. Social History: Does Not Smoke or Drink Alcohol. Lives by Herself. Family History: Reviewed, Noncontributory Presentation Physical examination: VITAL SIGNS: [Temperature 102.2, 104, 18, 109/67, 94% room air GENERAL: Average built, laying in bed, tired appearing. EYES: Pupils equal. Conjunctiva normal. HEENT: External appearance of nose and ears normal, oral cavity ulcers present on the side of the tongue. NECK: JVD not raised; masses not palpable. HEART: First and second heart sounds are normal; no edema. LUNGS: Respiratory rate normal; clear to auscultation. ABDOMEN: Soft, nontender, liver spleen not palpable, no masses palpable. LYMPHATICS: No lymph nodes palpable in the axilla and neck. PSYCH: Alert and oriented x3; mood and affect tired appearingl. NEUROLOGICAL: Cranial nerves grossly intact; no facial asymmetry, power and sensation grossly intact. Chest wall: Right-sided port Investigations reviewed in the clinical context White count 0.2, hemoglobin 9.9, repeat 7.7, platelets 57, potassium 4.1, BUN 19, creatinine 0.792. 1.09, Checks x-ray film personally reviewed by me shows no obvious infiltrates Assessment: -Neutropenic fever with sepsis with no obvious source at the present time -Squamous cell carcinoma of the rectum status post chemotherapy and radiation treatment -Coronary artery disease -GERD -Hyperlipidemia -Essential hypertension -Chronic idiopathic insomnia -Oral abscess ulcers secondary to chemotherapy -Mild protein calorie malnutrition from decreased oral intake. Patient also hypo albuminemia neck -Severe Pancytopenia secondary to chemotherapy Plan: Home medications are resumed. Patient is on IV cefepime and vancomycin. Getting IV fluids in form of lactated Ringer's. Patient be switched to a liquid diet. Oncology is being consulted. We'll send off a UA and a culture. Blood cultures are pending. Care was discussed with the patient. Questions were answered. Will need daily CBC and electrolytes. Past Medical History Past Medical History: Coronary Artery Disease (CAD), GERD/Reflux, Hyperlipidemia, Hypertension Additional Past Medical History / Comment(s): "sore" by the rectum w/ some bleeding,painful with bowel movements History of Any Multi-Drug Resistant Organisms: None Reported Past Surgical History: Coronary Bypass/CABG, Heart Catheterization Additional Past Surgical History / Comment(s): deviated septum repair Past Anesthesia/Blood Transfusion Reactions: No Reported Reaction Past Psychological History: No Psychological Hx Reported Smoking Status: Never smoker Past Alcohol Use History: None Reported Past Drug Use History: None Reported - Past Family History Mother Family Medical History: No Reported History Medications and Allergies Home Medications Medication Instructions Recorded Confirmed Type Carvedilol [Coreg] 6.25 mg PO BID-W/MEALS 11/30/15 01/27/19 History Aspirin 81 mg PO DAILY 02/13/18 01/27/19 History Rosuvastatin [Crestor] 20 mg PO SUTUTHSA 02/13/18 01/27/19 History Docusate [Colace] 100 mg PO DAILY PRN 05/29/18 01/27/19 History Omeprazole 40 mg PO HS 05/29/18 01/27/19 History Apixaban [Eliquis] 5 mg PO BID 01/27/19 01/27/19 History Cephalexin [Keflex] 500 mg PO QID 01/27/19 01/27/19 History Dexamethasone See Taper PO DIRECTED 01/27/19 01/27/19 History Hydrocodone/Acetaminophen [[place] 1 tab PO Q6H PRN 01/27/19 01/27/19 History 5-325] Losartan [Cozaar] 25 mg PO DAILY 01/27/19 01/27/19 History Omeprazole 20 mg PO QAM 01/27/19 01/27/19 History Prochlorperazine [Compazine] 10 mg PO Q6H PRN 01/27/19 01/27/19 History Allergies Allergy/AdvReac Type Severity Reaction Status Date / Time No Known Allergies Allergy Verified 01/27/19 17:00 Physical Exam Vitals: Vital Signs Temp Pulse Pulse Resp BP BP Pulse Ox 01/28/19 06:17 99.3 F 01/28/19 04:20 100.2 F H 104 H 18 109/67 94 L 01/27/19 21:02 99.1 F 01/27/19 20:00 101.1 F H 98 18 114/62 97 01/27/19 16:00 76 16 01/27/19 15:53 98.7 F 76 16 142/73 97 01/27/19 15:41 98.7 F 76 16 142/73 97 01/27/19 12:41 98.8 F 82 16 117/64 98 Intake and Output 01/27/19 01/28/19 01/28/19 22:59 06:59 14:59 Intake Total 120 480 Balance 120 480 Intake: Oral 120 480 Other: Voiding Method Toilet # Voids 1 2 2 Results CBC & Chem 7: 01/28/19 12:20 01/28/19 12:20 Labs: Abnormal Lab Results - Last 24 Hours (Table) 01/27/19 01/27/19 Range/Units 14:03 14:03 WBC 0.2 L* (3.8-10.6) k/uL RBC 3.31 L (3.80-5.40) m/uL Hgb 9.9 L (11.4-16.0) gm/dL Hct 29.8 L (34.0-46.0) % Plt Count 101 L (150-450) k/uL Sodium 134 L (137-145) mmol/L BUN 19 H (7-17) mg/dL Glucose 121 H (74-99) mg/dL Calcium 8.0 L (8.4-10.2) mg/dL AST 13 L (14-36) U/L Total Protein 5.9 L (6.3-8.2) g/dL Albumin 3.2 L (3.5-5.0) g/dL Thrombosis Risk Factor Assmnt - Choose All That Apply Other Risk Factors: Yes Each Risk Factor Represents 2 Points: Age 61-74 years, Malignancy Each Risk Factor Represents 3 Points: History of DVT/PE Thrombosis Risk Factor Assessment Total Risk Factor Score: 7 Thrombosis Risk Factor Assessment Level: High Risk
--- NOTE | 2019-01-28 15:51 | P.CONS ---
History of Present Illness - Reason for Consult Consult date: 01/28/19 Febrile neutropenia. Anal cancer on chemoradiation - History of Present Illness The patient is a 73-year-old white female, well known to myself. She was initially seen in consult in early 11/07. The patient had presented to her PCP with rectal bleeding, and was referred to surgery. 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 She underwent excision of the lesion as well as the fistula, revealing a squamous cell cancer. Due to the nature of the surgery, it was not possible to ascertain if the lesion was perianal or extending into the anal canal and whether it had been completely excised or not. She had a PET scan revealing no evidence of metastatic disease. She was referred to [facility], for an opinion regarding chemoradiation for typical anal cancer versus additional excision for possible limited perianal lesion. As extent of the disease could not be determined due to the prior surgery, it is recommended that she have chemoradiation. The patient has been receiving infusional 5-FU plus mitomycin concurrent with radiation. She completed chemotherapy (cycle 2) on 01/21/19, and radiation on 01/25/19 Since having her pump disconnected, the patient has not been feeling well. She states she has been very nauseous so she has not really had no more vomiting. As a result oral intake has markedly declined, progressively over the past 3-4 days, leading to increasing weakness. She has had soft stools but not supa diarrhea. She has marked inflammation of the perianal skin, and is also developed mouth sores. She had called the answering service with these complaints yesterday and was asked to come into the emergency room. On admission she was noted to be neutropenic with WBC less than 1000, and also clinically dehydrated. She was admitted for further management and subsequently developed fever, which was greater than 102 today. Consult was placed for further evaluation and recommendations. Review of Systems Constitutional: Reports fever, Reports poor appetite, Reports weakness, Reports weight loss Eyes: denies blurred vision, denies pain Ears: deny: decreased hearing, ear discharge, earache, tinnitus Ears, nose, mouth and throat: Reports as per HPI, Reports mouth pain Cardiovascular: Reports decreased exercise tolerance Respiratory: Denies cough Gastrointestinal: Reports abdominal pain (Mild), Reports nausea Genitourinary: Reports urinary frequency, Denies dysuria, Denies hematuria Menstruation: Reports postmenopausal Musculoskeletal: Reports muscle weakness Integumentary: Reports as per HPI (Perianal skin inflammation), Denies pruritus, Denies rash Neurological: Reports weakness, Denies numbness Psychiatric: Reports anxiety Endocrine: Reports fatigue Hematologic/Lymphatic: Reports as per HPI Past Medical History Past Medical History: Coronary Artery Disease (CAD), GERD/Reflux, Hyperlipidemia, Hypertension Additional Past Medical History / Comment(s): "sore" by the rectum w/ some bl eeding,painful with bowel movements History of Any Multi-Drug Resistant Organisms: None Reported Past Surgical History: Coronary Bypass/CABG, Heart Catheterization Additional Past Surgical History / Comment(s): deviated septum repair Past Anesthesia/Blood Transfusion Reactions: No Reported Reaction Past Psychological History: No Psychological Hx Reported Smoking Status: Never smoker Past Alcohol Use History: None Reported Past Drug Use History: None Reported - Past Family History Mother Family Medical History: No Reported History Medications and Allergies Home Medications Medication Instructions Recorded Confirmed Type Carvedilol [Coreg] 6.25 mg PO BID-W/MEALS 11/30/15 01/27/19 History Aspirin 81 mg PO DAILY 02/13/18 01/27/19 History Rosuvastatin [Crestor] 20 mg PO SUTUTHSA 02/13/18 01/27/19 History Docusate [Colace] 100 mg PO DAILY PRN 05/29/18 01/27/19 History Omeprazole 40 mg PO HS 05/29/18 01/27/19 History Apixaban [Eliquis] 5 mg PO BID 01/27/19 01/27/19 History Cephalexin [Keflex] 500 mg PO QID 01/27/19 01/27/19 History Dexamethasone See Taper PO DIRECTED 01/27/19 01/27/19 History Hydrocodone/Acetaminophen [[place] 1 tab PO Q6H PRN 01/27/19 01/27/19 History 5-325] Losartan [Cozaar] 25 mg PO DAILY 01/27/19 01/27/19 History Omeprazole 20 mg PO QAM 01/27/19 01/27/19 History Prochlorperazine [Compazine] 10 mg PO Q6H PRN 01/27/19 01/27/19 History Allergies Allergy/AdvReac Type Severity Reaction Status Date / Time No Known Allergies Allergy Verified 01/27/19 17:00 Physical Exam Vitals: Vital Signs Temp Pulse Resp BP Pulse Ox 01/28/19 12:50 98.8 F 01/28/19 11:44 102.2 F H 98 18 102/63 96 01/28/19 06:17 99.3 F 01/28/19 04:20 100.2 F H 104 H 18 109/67 94 L 01/27/19 21:02 99.1 F 01/27/19 20:00 101.1 F H 98 18 114/62 97 01/27/19 16:00 76 16 01/27/19 15:53 98.7 F 76 16 142/73 97 01/27/19 15:41 98.7 F 76 16 142/73 97 Intake and Output 01/28/19 01/28/19 01/28/19 06:59 14:59 22:59 Intake Total 480 Balance 480 Intake: Oral 480 Other: # Voids 2 2 Weight 85.275 kg - Constitutional General appearance: no acute distress - EENT Oral examination reveals patchy generalized mucositis, with supa superficial ulceration especially involving the lateral margins of the tongue Eyes: EOMI, PERRLA ENT: hearing grossly normal, pharyngeal erythema - Neck Neck: no lymphadenopathy - Respiratory Respiratory: bilateral: CTA - Cardiovascular Rhythm: regular Heart sounds: normal: S1, S2 - Gastrointestinal General gastrointestinal: normal bowel sounds, soft - Integumentary Integumentary: normal (Perianal skin not evaluated this exam) - Musculoskeletal Musculoskeletal: generalized weakness, strength equal bilaterally - Psychiatric Psychiatric: A&O x's 3, appropriate affect Results CBC & Chem 7: 01/28/19 12:20 01/28/19 12:20 Labs: Abnormal Lab Results - Last 24 Hours (Table) 01/28/19 01/28/19 Range/Units 12:20 12:20 WBC 0.3 L* (3.8-10.6) k/uL RBC 2.54 L (3.80-5.40) m/uL Hgb 7.7 L D (11.4-16.0) gm/dL Hct 23.4 L (34.0-46.0) % Plt Count 57 L (150-450) k/uL Sodium 130 L (137-145) mmol/L BUN 21 H (7-17) mg/dL Creatinine 1.09 H (0.52-1.04) mg/dL Calcium 7.1 L (8.4-10.2) mg/dL Chest x-ray: report reviewed Assessment and Plan (1) Febrile neutropenia Narrative/Plan: The patient has developed severe neutropenia due to her chemotherapy. She had presented with other chemotherapy-related side effects and was noted to be febrile post admission. She has no definite localizing signs, but potential sources include mucositis, as well as perianal skin inflammation, among others - The patient was started on growth factors. Chest x-ray was negative. Urine and blood cultures were ordered. She will also be started on vancomycin and cefepime. Recommend infectious diseases consult - Continue growth factors still WBC normalizes. Anticipate that in the next 2-3 days Current Visit: Yes Status: Acute Code(s): D70.9 - NEUTROPENIA, UNSPECIFIED; R50.81 - FEVER PRESENTING WITH CONDITIONS CLASSIFIED ELSEWHERE SNOMED Code(s): 773423747 (2) Dehydration Narrative/Plan: This is due to chemotherapy effect causing severe nausea and decreased appetite and low oral intake. Continue IV hydration. Clear liquid diet. The patient does not have any definite evidence of a typhlitis by clinical exam. However there may be some questionable lower abdominal tenderness, and given ongoing severe leukopenia it would be reasonable to limit her to clear liquids at this time. Current Visit: Yes Status: Acute Code(s): E86.0 - DEHYDRATION SNOMED Code(s): 34386322 (3) Nausea Narrative/Plan: Due to chemotherapy. IV antiemetics when necessary Current Visit: Yes Status: Acute Code(s): R11.0 - NAUSEA SNOMED Code(s): 122757186 (4) Pancytopenia due to antineoplastic chemotherapy Narrative/Plan: The patient has been started on growth factors for her WBC as noted. Hemoglobin and platelets are still in a safe range. Continue to monitor her transfusion as needed, to keep hemoglobin greater than 7, and platelets greater than 10, unless actively bleeding Current Visit: Yes Status: Acute Code(s): D61.810 - ANTINEOPLASTIC CHEMOTHERAPY INDUCED PANCYTOPENIA; T45.1X5A - ADVERSE EFFECT OF ANTINEOPLASTIC AND IMMUNOSUP DRUGS, INIT SNOMED Code(s): 053961952175335 (5) History of squamous cell carcinoma Narrative/Plan: History of anal carcinoma, with diagnostic and therapeutic circumstances as described. The patient has completed definitive chemoradiation. She will have a reassessment with local exam, and scans in about 6-8 weeks posttreatment Current Visit: Yes Status: Acute Code(s): Z85.89 - PERSONAL HISTORY OF MALIGNANT NEOPLASM OF ORGANS AND SYSTEMS SNOMED Code(s): 96249962653381
[2019-01-28] MEDS: ATORVASTATIN 40 MG TAB PO SCH (17:35)
[2019-01-28] MEDS ORDERED: SODIUM CHLORIDE 0.9% 500 ML 500 ML IV ONE (21:27)
[2019-01-28] MEDS: MAG HYDROX/AL HYDROX/SIMETH 30 ML, diphenhydrAMINE ELIXIR 75 MG, LIDOCAINE VISCOUS 30 ML PO SCH ×3 (22:16)
--- NOTE | 2019-01-28 22:32 | P.CONS ---
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 for the patient did have chemoradiation therapy last chemo has been about a week ago presenting to the ER at [facility] with chief complaints of fever and generalized weakness no energy and pain in the perirectal area which has been described as more of a burning pain intensity of almost 8 out of 10 and no radiation patient did have slight 1 and the area and minimal drainage patient did have felt nauseated but would've any vomiting and no diarrhea denies having any headache or URI symptoms no chest pain did has slight shortness of breath minimal cough and sputum production with the symptom the patient has been evaluated by the physician on presentation the patient did have a fever of 102F patient did have slight tachycardia white count was 0.3-6 has been reported negative for any acute infiltrate UA has been ordered pending collection by the nursing staff, patient has been started on cefepime, vancomycin and infectious disease was consulted for further recommendation about antibiotic therapy Review of Systems CONSTITUTIONAL: Positive for weakness. Fever EYES: No complaint. ENT:No complaint. RESPIRATORY: As per history of present illness. CARDIOVASCULAR: No complaint. GENITOURINARY: No complaint. GASTROINTESTINAL: As per history of present illness MUSCULOSKELETAL: No complaint. INTEGUMENTARY: No complaint. PSYCHOLOGICAL: No complaint. ENDOCRINE: No complaint. NEUROLOGIC: No complaint. Past Medical History Past Medical History: Coronary Artery Disease (CAD), GERD/Reflux, Hyperlipidemia, Hypertension Additional Past Medical History / Comment(s): "sore" by the rectum w/ some bleeding,painful with bowel movements History of Any Multi-Drug Resistant Organisms: None Reported Past Surgical History: Coronary Bypass/CABG, Heart Catheterization Additional Past Surgical History / Comment(s): deviated septum repair Past Anesthesia/Blood Transfusion Reactions: No Reported Reaction Past Psychological History: No Psychological Hx Reported Smoking Status: Never smoker Past Alcohol Use History: None Reported Past Drug Use History: None Reported - Past Family History Mother Family Medical History: No Reported History Medications and Allergies Home Medications Medication Instructions Recorded Confirmed Type Carvedilol [Coreg] 6.25 mg PO BID-W/MEALS 11/30/15 01/27/19 History Aspirin 81 mg PO DAILY 02/13/18 01/27/19 History Rosuvastatin [Crestor] 20 mg PO SUTUTHSA 02/13/18 01/27/19 History Docusate [Colace] 100 mg PO DAILY PRN 05/29/18 01/27/19 History Omeprazole 40 mg PO HS 05/29/18 01/27/19 History Apixaban [Eliquis] 5 mg PO BID 01/27/19 01/27/19 History Cephalexin [Keflex] 500 mg PO QID 01/27/19 01/27/19 History Dexamethasone See Taper PO DIRECTED 01/27/19 01/27/19 History Hydrocodone/Acetaminophen [Hepler 1 tab PO Q6H PRN 01/27/19 01/27/19 History 5-325] Losartan [Cozaar] 25 mg PO DAILY 01/27/19 01/27/19 History Omeprazole 20 mg PO QAM 01/27/19 01/27/19 History Prochlorperazine [Compazine] 10 mg PO Q6H PRN 01/27/19 01/27/19 History Allergies Allergy/AdvReac Type Severity Reaction Status Date / Time No Known Allergies Allergy Verified 01/27/19 17:00 Physical Exam Vitals: Vital Signs Temp Pulse Resp BP Pulse Ox 01/28/19 12:50 98.8 F 01/28/19 11:44 102.2 F H 98 18 102/63 96 01/28/19 08:00 98 18 01/28/19 06:17 99.3 F 01/28/19 04:20 100.2 F H 104 H 18 109/67 94 L 01/27/19 21:02 99.1 F 01/27/19 20:00 101.1 F H 98 18 114/62 97 Intake and Output 01/28/19 01/28/19 01/28/19 06:59 14:59 22:59 Intake Total 480 1510 Balance 480 1510 Intake: Intake, IV Titration 1150 Amount Cefepime 2 gm In Sodium 100 Chloride 0.9% 100 ml @ 200 mls/hr IVPB Q8H [facility] Rx#:[id number] Lactated Ringers 1,000 ml 800 @ 125 mls/hr IV .Q8H [facility] Rx#:[id number] Vancomycin 1,750 mg In 250 Sodium Chloride 0.9% 500 ml 500 ml @ 167 mls/hr IVPB ONCE ONE Rx#: [id number] Oral 480 360 Other: Voiding Method Toilet # Voids 2 2 Weight 85.275 kg GENERAL DESCRIPTION: Elderly female lying in bed, no distress. No tachypnea or accessory muscle of respiration use. HEENT: Shows Pallor , no scleral icterus. Oral mucous membrane is dry. No pharyngeal erythema or thrush NECK: Trachea central, no thyromegaly. LUNGS: Unlabored breathing. Clear to auscultation anteriorly. No wheeze or crackle. HEART: S1, S2, regular rate and rhythm. No loud murmur ABDOMEN: Soft, no tenderness , guarding or rigidity, examination of the perirectal area in the presence of nurse 8 which was superficial wound with some necrosis and surrounding redness minimal drainage EXTREMITIES: No edema of feet. SKIN: No rash, no masses palpable. NEUROLOGICAL: The patient is awake, alert, oriented x3, mood and affect normal Results CBC & Chem 7: 01/28/19 12:20 01/28/19 12:20 Labs: Abnormal Lab Results - Last 24 Hours (Table) 01/28/19 01/28/19 Range/Units 12:20 12:20 WBC 0.3 L* (3.8-10.6) k/uL RBC 2.54 L (3.80-5.40) m/uL Hgb 7.7 L D (11.4-16.0) gm/dL Hct 23.4 L (34.0-46.0) % Plt Count 57 L (150-450) k/uL Sodium 130 L (137-145) mmol/L BUN 21 H (7-17) mg/dL Creatinine 1.09 H (0.52-1.04) mg/dL Calcium 7.1 L (8.4-10.2) mg/dL Assessment and Plan Assessment: 1-patient is a 73 -year-old female admitted hospital with sepsis in this patient who did have a fever tachycardia leukopenia/neutropenia in this patient with a 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 with underlying immunodeficiency possible source of this fever is the perirectal wound with secondary cellulitis for which we will need to cover for both gram- positive skin toma in addition to gram-negative pathogen (1) Sepsis Current Visit: Yes Status: Acute Code(s): A41.9 - SEPSIS, UNSPECIFIED ORGANISM SNOMED Code(s): 62988897 (2) Perirectal cellulitis Current Visit: Yes Status: Acute Code(s): K61.1 - RECTAL ABSCESS SNOMED Code(s): 205001 (3) Febrile neutropenia Current Visit: Yes Status: Acute Code(s): D70.9 - NEUTROPENIA, UNSPECIFIED; R50.81 - FEVER PRESENTING WITH CONDITIONS CLASSIFIED ELSEWHERE SNOMED Code(s): 833147960 Plan: 1-vancomycin pharmacy to dose target trough of 15 while watching her kidney function and Vanco trough closely 2-cefepime 2 g every 8 hours 3-gentle IV fluid we will follow up on clinical condition and cultures to further adjust medication if needed Thank you for this consultation will follow this patient along with you Time with Patient: Greater than 30
[2019-01-29] MEDS: LACTATED RINGERS 1,000 ML IV SCH ×3 (00:57→19:52)
[2019-01-29] MEDS: MORPHINE SULFATE 4 MG/ML SYRINGE IV PRN ×4 (03:08→19:23)
[2019-01-29] MEDS: ACETAMINOPHEN TAB 325 MG TAB PO PRN (04:39)
[2019-01-29] MEDS: CEFEPIME 2 GM in SODIUM CHLORIDE 0.9% 100 ML IVPB SCH ×2 (05:00→13:13)
[2019-01-29] MEDS: VANCOMYCIN 1,500 MG in SODIUM CHLORIDE 0.9% 250 ML IVPB SCH ×2 (05:37→21:05)
[2019-01-29 07:13] LABS: Calcium 6.5 mg/dL (8.4-10.2)
[2019-01-29] MEDS: HYDROcodone/APAP 5-325MG 1 EACH TAB PO PRN ×3 (08:28→21:04)
[2019-01-29] MEDS: DOCUSATE 100 MG CAP PO PRN (08:28)
[2019-01-29] MEDS: CARVEDILOL 6.25 MG TAB PO SCH ×2 (08:29→16:32)
[2019-01-29] MEDS: PANTOPRAZOLE 40 MG TABLET PO SCH ×2 (08:30→21:04)
[2019-01-29] MEDS: APIXABAN 5 MG TAB PO SCH ×2 (08:30→21:04)
[2019-01-29] MEDS: ASPIRIN 81 MG PO SCH (08:30)
[2019-01-29 08:31] LABS: Anisocytosis Slight; MCHC 33.9 g/dL (31.0-37.0); MCV 91.4 fL (80.0-100.0); Mean Platelet Volume 7.8; RBC 2.17 m/uL (3.80-5.40); RDW 16.5 % (11.5-15.5)
[2019-01-29] MEDS: MAG HYDROX/AL HYDROX/SIMETH 30 ML, diphenhydrAMINE ELIXIR 75 MG, LIDOCAINE VISCOUS 30 ML PO SCH ×9 (08:34→19:53)
[2019-01-29 08:42] LABS: WBC 0.5 k/uL (3.8-10.6)
[2019-01-29 08:45] LABS: HCT 19.8 % (34.0-46.0); HGB 6.7 gm/dL (11.4-16.0)
[2019-01-29 08:46] LABS: Platelet Count 52 k/uL (150-450)
[2019-01-29] MEDS ORDERED: MAG HYDROX/AL HYDROX/SIMETH 30 ML, diphenhydrAMINE ELIXIR 75 MG, LIDOCAINE VISCOUS 30 ML PO SCH ×3 (09:15)
[2019-01-29 09:34] LABS: Poikilocytosis (M) Present
[2019-01-29] MEDS: LOSARTAN 25 MG TAB PO SCH (11:31)
[2019-01-29] MEDS: FILGRASTIM-SNDZ 480 MCG/0.8 ML SYRINGE SQ SCH (11:32)
[2019-01-29] MEDS: PROCHLORPERAZINE 10 MG TAB PO PRN (11:32)
--- NOTE | 2019-01-29 20:43 | PN ---
PROGRESS NOTE DATE OF SERVICE: January 29, 2019. PRESENTING COMPLAINT: Fever. INTERVAL HISTORY: This is a patient with squamous cell carcinoma of the rectum, who has received radiation chemotherapy presented with neutropenic sepsis. At the present time, perianal cellulitis wound is felt to be the current source of infection. The patient also got significant mucositis. The patient has known diarrhea and some very slight abdominal pain. is felt to be less likely. The patient feels a shade better than yesterday. Does still rather tired and run down. REVIEW OF SYSTEMS: Done for constitutional, cardiovascular, GI, pulmonary; relevant findings as above. CURRENT MEDICATIONS: Reviewed that include IV cefepime and IV vancomycin was started today. PHYSICAL EXAMINATION: Temperature this morning 102.7, pulse 83, respiration 16, blood pressure 107/67, pulse ox 95% on 1.5 L. GENERAL APPEARANCE: Lying in bed, tired-appearing. EYES: Pupils equal. Conjunctivae pale. HEENT: External appearance of nose and ears normal. Oral cavity ulcers present especially on the side of the tongue. NECK: JVD not raised. Mass not palpable. RESPIRATORY: Effort normal. LUNGS: Clear. CARDIOVASCULAR: 1st and 2nd sounds normal. No edema. ABDOMEN: Soft. Minimal lower abdominal tenderness. Liver and spleen not palpable. Rectal exam was performed by Dr. Gan. His findings are noted. PSYCH: Alert and oriented times three. Mood and affect tired-appearing. Chest wall right-sided port. INVESTIGATIONS: White count 0.5, hemoglobin 6.7, platelets 52, potassium 3, BUN 19, creatinine 0.99. ASSESSMENT: 1. Neutropenic fever with sepsis felt likely to be from perirectal cellulitis and wound, slow to respond. 2. Squamous cell carcinoma of the rectum, status post chemotherapy and radiation treatment. 3. Coronary artery disease. 4. Gastroesophageal reflux disease. 5. Hyperlipidemia. 6. Essential hypertension. 7. Chronic idiopathic insomnia. 8. Oral aphthous ulcers secondary to chemotherapy. 9. Mild protein-calorie malnutrition decreased oral intake with hypoalbuminemia. 10.Severe pancytopenia secondary to chemotherapy. PLAN: Patient is started on colony-stimulating factors also on IV cefepime and vancomycin. Getting IV fluids. Care was discussed with the patient. 1 unit of red blood cell has been ordered. The patient also being followed by Oncology and Infectious Disease. MMODL / IJN: [id number] /
--- NOTE | 2019-01-29 22:18 | P.PN ---
Subjective Progress Note Date: 01/29/19 Principal diagnosis: Febrile neutropenia with sepsis Patient is a 73-year-old female with past medical history significant for squamous cell carcinoma squamous cell of the anal region ,status post chemo and radiation therapy, last chemo has been about a week ago presented to hospital with a fever and pain to the ralph-rectal area On today's evaluation that is 01/29/2019, the patient had did have a fever only this morning none since than patient is feeling slightly better no chest pain shortness of breath or cough no nausea no vomiting, still complaining of pain in the perirectal area with no worsening and no diarrhea Objective - Vital Signs Vital signs: Vital Signs Temp 99.2 F 01/29/19 09:01 Pulse 94 01/29/19 04:30 Resp 16 01/29/19 04:30 BP 114/69 01/29/19 04:30 Pulse Ox 94 L 01/29/19 04:30 Intake & Output 01/28/19 01/29/19 01/29/19 18:59 06:59 18:59 Intake Total 1750 1205 Balance 1750 1205 Weight 85.275 kg Intake: Intake, IV Titration 1150 375 Amount Cefepime 2 gm In Sodium 100 Chloride 0.9% 100 ml @ 200 mls/hr IVPB Q8H [facility] Rx#:[id number] Lactated Ringers 1,000 ml 800 375 @ 125 mls/hr IV .Q8H [facility] Rx#:[id number] Vancomycin 1,750 mg In 250 Sodium Chloride 0.9% 500 ml 500 ml @ 167 mls/hr IVPB ONCE ONE Rx#: [id number] Oral 600 830 Other: Voiding Method Toilet Toilet # Voids 2 1 - Exam GENERAL DESCRIPTION:[ Patient is awake and alert in no distress] HEENT: [Oral mucosa is dry and no pharyngeal erythema] EYES : [No pallor or scleral icterus] RESPIRATORY SYSTEM: [Unlabored breathing clear to auscultation] CARDIA VASCULAR SYSTEM: [S1-S2 regular rate and rhythm no murmur] GI: [Abdominal soft there's no tenderness no organomegaly] EXTREMITIES: [No edema feet] - Labs CBC & Chem 7: 01/29/19 06:44 01/29/19 06:44 Labs: Abnormal Lab Results - Last 24 Hours (Table) 01/28/19 01/28/1901/29/19 Range/Units 12:20 12:20 06:44 WBC 0.3 L* 0.5 L* (3.8-10.6) k/uL RBC 2.54 L 2.17 L (3.80-5.40) m/uL Hgb 7.7 L D 6.7 L* (11.4-16.0) gm/dL Hct 23.4 L 19.8 L* (34.0-46.0) % RDW 16.5 H (11.5-15.5) % Plt Count 57 L 52 L (150-450) k/uL Sodium 130 L (137-145) mmol/L Potassium (3.5-5.1) mmol/L Carbon Dioxide (22-30) mmol/L BUN 21 H (7-17) mg/dL Creatinine 1.09 H (0.52-1.04) mg/dL Calcium 7.1 L (8.4-10.2) mg/dL 01/29/19 Range/Units 06:44 WBC (3.8-10.6) k/uL RBC (3.80-5.40) m/uL Hgb (11.4-16.0) gm/dL Hct (34.0-46.0) % RDW (11.5-15.5) % Plt Count (150-450) k/uL Sodium 131 L (137-145) mmol/L Potassium 3.0 L (3.5-5.1) mmol/L Carbon Dioxide 19 L (22-30) mmol/L BUN 19 H (7-17) mg/dL Creatinine (0.52-1.04) mg/dL Calcium 6.5 L (8.4-10.2) mg/dL Microbiology - Last 24 Hours (Table) 01/28/19 17:26 Urine Culture - Preliminary Urine,Voided Assessment and Plan Assessment: 1-patient is a 73 -year-old female admitted hospital with sepsis in this patient who did have a fever tachycardia leukopenia/neutropenia in this patient with a 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 with underlying immunodeficiency possible source of this fever is the perirectal wound with secondary cellulitis for which we will need to cover for both gram- positive skin toma in addition to gram-negative pathogen 2-patient did have slight improvement in her fever pattern cultures remains to be negative so far white count remains to be low (1) Sepsis Current Visit: Yes Status: Acute Code(s): A41.9 - SEPSIS, UNSPECIFIED ORGANISM SNOMED Code(s): 77360807 (2) Perirectal cellulitis Current Visit: Yes Status: Acute Code(s): K61.1 - RECTAL ABSCESS SNOMED Code(s): 014573 (3) Febrile neutropenia Current Visit: Yes Status: Acute Code(s): D70.9 - NEUTROPENIA, UNSPECIFIED; R50.81 - FEVER PRESENTING WITH CONDITIONS CLASSIFIED ELSEWHERE SNOMED Code(s): 441283268 Plan: 1-vancomycin pharmacy to dose target trough of 15 while watching her kidney function and Vanco trough closely 2-cefepime 2 g every 8 hours 3-gentle IV fluid 4-we will continue to monitor cultures and clinical condition to adjust medication further if needed Time with Patient: Less than 30
--- NOTE | 2019-01-29 23:25 | P.PN ---
Subjective Progress Note Date: 01/29/19 The patient continues to spike temperatures. She denies any chills, nausea or vomiting. She is complaining of lower abdominal discomfort. She is having bowel movements for states that there somewhat hard. Oral Intake is significantly reduced. Objective - Vital Signs Vital signs: Vital Signs Temp 98.5 F 01/29/19 21:00 Pulse 76 01/29/19 21:00 Resp 16 01/29/19 21:00 BP 109/65 01/29/19 21:00 Pulse Ox 98 01/29/19 21:00 Intake & Output 01/29/19 01/29/19 01/30/19 06:59 18:59 06:59 Intake Total 1205 310 Output Total 1 Balance 1205 310 -1 Intake: Intake, IV Titration 375 Amount Lactated Ringers 1,000 ml 375 @ 125 mls/hr IV .Q8H [facility] Rx#:[id number] Oral 830 0 Blood Product 310 Rc As-1 Unit 310 [id number] Output: Urine/Stool Mix 1 Other: Voiding Method Toilet # Voids 1 1 1 # Bowel Movements 1 - Constitutional General appearance: Present: no acute distress - EENT EENT Comment(s): persistent mucositis, mj lateral edges Eyes: Present: EOMI ENT: Present: pharyngeal erythema - Respiratory Respiratory: bilateral: CTA - Cardiovascular Rhythm: regular Heart sounds: normal: S1, S2 - Gastrointestinal General gastrointestinal: Present: normal bowel sounds, soft Localized gastrointestinal: tender: RLQ, LLQ - Integumentary Integumentary: Present: normal - Neurologic Neurologic: Present: CNII-XII intact - Musculoskeletal Musculoskeletal: Present: generalized weakness, strength equal bilaterally - Psychiatric Psychiatric: Present: A&O x's 3, appropriate affect - Labs CBC & Chem 7: 01/29/19 06:44 01/29/19 06:44 Labs: Abnormal Lab Results - Last 24 Hours (Table) 01/29/19 01/29/19 01/29/19 Range/Units 06:44 06:44 09:49 WBC 0.5 L* (3.8-10.6) k/uL RBC 2.17 L (3.80-5.40) m/uL Hgb 6.7 L* (11.4-16.0) gm/dL Hct 19.8 L* (34.0-46.0) % RDW 16.5 H (11.5-15.5) % Plt Count 52 L (150-450) k/uL Sodium 131 L (137-145) mmol/L Potassium 3.0 L (3.5-5.1) mmol/L Carbon Dioxide 19 L (22-30) mmol/L BUN 19 H (7-17) mg/dL Calcium 6.5 L (8.4-10.2) mg/dL Crossmatch See Detail Microbiology - Last 24 Hours (Table) 01/28/19 13:50 Blood Culture - Preliminary Blood No Growth after 24 hours 01/28/19 12:20 Blood Culture - Preliminary Blood No Growth after 24 hours 01/28/19 17:26 Urine Culture - Preliminary Urine,Voided Assessment and Plan (1) Febrile neutropenia Narrative/Plan: Fever persists. WBC still low at 0.5. Hemodynamics are , however, stable. Cultu res are negative. Pt has been seen by ID, and continued on Vanco and Cefepime. Continue Filgrastim. Expect improvement as WBC recovers. Current Visit: Yes Status: Acute Code(s): D70.9 - NEUTROPENIA, UNSPECIFIED; R50.81 - FEVER PRESENTING WITH CONDITIONS CLASSIFIED ELSEWHERE SNOMED Code(s): 437323291 (2) Dehydration Narrative/Plan: Improved with IV hydration. Continue same. UO is maintained Current Visit: Yes Status: Acute Code(s): E86.0 - DEHYDRATION SNOMED Code(s): 31978793 (3) Nausea Current Visit: Yes Status: Acute Code(s): R11.0 - NAUSEA SNOMED Code(s): 343468246 (4) Pancytopenia due to antineoplastic chemotherapy Narrative/Plan: On filgrastim as noted. Plt counts are in a safe range. Hgb is 6.7. 1 U PRBC will be ordered. Continue to monitor, and supplement as needed Current Visit: Yes Status: Acute Code(s): D61.810 - ANTINEOPLASTIC CHEMOTHERAPY INDUCED PANCYTOPENIA; T45.1X5A - ADVERSE EFFECT OF ANTINEOPLASTIC AND IMMUNOSUP DRUGS, INIT SNOMED Code(s): 942218060985726 (5) History of squamous cell carcinoma Current Visit: Yes Status: Acute Code(s): Z85.89 - PERSONAL HISTORY OF MALIGNANT NEOPLASM OF ORGANS AND SYSTEMS SNOMED Code(s): 26342891015472 (6) Neutropenic typhlitis Narrative/Plan: The pt has developed lower abd tenderness, which is new. Given her low WBC, would treat as possible typhilitis. Pt already on antibiotics and GCSF. Change pt to NPO except for sips and meds, till exam and WBC improve Current Visit: Yes Status: Acute Code(s): K36 - OTHER APPENDICITIS SNOMED Code(s): 6544450
[2019-01-30] MEDS: MORPHINE SULFATE 4 MG/ML SYRINGE IV PRN ×5 (00:07→17:12)
[2019-01-30] MEDS: MAG HYDROX/AL HYDROX/SIMETH 30 ML, diphenhydrAMINE ELIXIR 75 MG, LIDOCAINE VISCOUS 30 ML PO SCH ×15 (00:09→23:23)
[2019-01-30] MEDS: LACTATED RINGERS 1,000 ML IV SCH ×4 (03:05→23:49)
[2019-01-30] MEDS: HYDROcodone/APAP 5-325MG 1 EACH TAB PO PRN ×4 (03:05→21:33)
[2019-01-30] MEDS: CEFEPIME 2 GM in SODIUM CHLORIDE 0.9% 100 ML IVPB SCH ×2 (03:05→13:10)
[2019-01-30] MEDS: ASPIRIN 81 MG PO SCH ×2 (07:58→08:06)
[2019-01-30] MEDS: APIXABAN 5 MG TAB PO SCH ×2 (07:58→19:55)
[2019-01-30] MEDS: PANTOPRAZOLE 40 MG TABLET PO SCH ×2 (07:58→19:55)
[2019-01-30] MEDS: LOSARTAN 25 MG TAB PO SCH ×2 (07:58→08:06)
[2019-01-30] MEDS: CARVEDILOL 6.25 MG TAB PO SCH ×3 (07:58→17:12)
[2019-01-30] MEDS: FILGRASTIM-SNDZ 480 MCG/0.8 ML SYRINGE SQ SCH (08:04)
[2019-01-30 08:07] LABS: Calcium 6.8 mg/dL (8.4-10.2); Potassium 3.4 mmol/L (3.5-5.1)
[2019-01-30 11:57] LABS: HCT 24.2 % (34.0-46.0); HGB 8.1 gm/dL (11.4-16.0); MCH 31.2 pg (25.0-35.0); MCHC 33.3 g/dL (31.0-37.0); MCV 93.7 fL (80.0-100.0); Mean Platelet Volume 8.3; RBC 2.58 m/uL (3.80-5.40); RDW 15.9 % (11.5-15.5); WBC 1.3 k/uL (3.8-10.6)
[2019-01-30 12:00] LABS: Platelet Count 59 k/uL (150-450)
[2019-01-30 12:25] LABS: Band Neutrophils % 5 %; Crenated RBC Present; Eosinophils # (M) 0.05 k/uL (0-0.7); Lymphocytes # (M) 0.07 k/uL (1.0-4.8); Monocytes # (M) 0.26 k/uL (0-1.0); Neutrophils % (M) 66 %; Nucleated Red Blood Cells 1 /100 WBC (0-0); Poikilocytosis (M) Present; Total Cells Counted 100
--- NOTE | 2019-01-30 14:25 | P.PN ---
Subjective Progress Note Date: 01/30/19 Principal diagnosis: Rectal cancer Blood counts are in safe range today and she has remained afebrile for 24 hours Objective - Vital Signs Vital signs: Vital Signs Temp 98.3 F 01/30/19 11:20 Pulse 84 01/30/19 11:20 Resp 16 01/30/19 11:20 BP 129/67 01/30/19 11:20 Pulse Ox 97 01/30/19 11:20 Intake & Output 01/29/19 01/30/19 01/30/19 18:59 06:59 18:59 Intake Total 573 080 7969 Output Total 1 Balance 197 839 7469 Intake: Intake, IV Titration 1050 Amount Cefepime 2 gm In Sodium 100 Chloride 0.9% 100 ml @ 200 mls/hr IVPB Q12H [facility] Rx#:[id number] Lactated Ringers 1,000 ml 950 @ 125 mls/hr IV .Q8H [facility] Rx#:[id number] Oral 0 120 Blood Product 310 Rc As-1 Unit 310 [id number] Output: Urine/Stool Mix 1 Other: Voiding Method Toilet # Voids 1 3 1 # Bowel Movements 1 1 1 - Exam - Constitutional General appearance: Present: no acute distress - EENT EENT Comment(s): persistent mucositis, mj lateral edges Eyes: Present: EOMI ENT: Present: pharyngeal erythema - Respiratory Respiratory: bilateral: CTA - Cardiovascular Rhythm: regular Heart sounds: normal: S1, S2 - Gastrointestinal General gastrointestinal: Present: normal bowel sounds, soft Localized gastrointestinal: tender: RLQ, LLQ - Integumentary Bilateral inguinal area excoriation and open skin, fungal, odor present and moisture, erythema - Neurologic Neurologic: Present: CNII-XII intact - Musculoskeletal Musculoskeletal: Present: generalized weakness, strength equal bilaterally - Psychiatric Psychiatric: Present: A&O x's 3, appropriate affect - Labs CBC & Chem 7: 01/30/19 06:20 01/30/19 06:20 Labs: Abnormal Lab Results - Last 24 Hours (Table) 01/29/19 01/30/19 01/30/19 Range/Units 09:49 06:20 06:20 WBC 1.3 L* (3.8-10.6) k/uL RBC 2.58 L (3.80-5.40) m/uL Hgb 8.1 L (11.4-16.0) gm/dL Hct 24.2 L (34.0-46.0) % RDW 15.9 H (11.5-15.5) % Plt Count 59 L (150-450) k/uL Neutrophils # (Manual) 0.90 L (1.3-7.7) k/uL Lymphocytes # (Manual) 0.07 L (1.0-4.8) k/uL Nucleated RBCs 1 H (0-0) /100 WBC Sodium 134 L (137-145) mmol/L Potassium 3.4 L (3.5-5.1) mmol/L Calcium 6.8 L (8.4-10.2) mg/dL Crossmatch See Detail Microbiology - Last 24 Hours (Table) 01/28/19 17:26 Urine Culture - Final Urine,Voided 01/28/19 13:50 Blood Culture - Preliminary Blood No Growth after 24 hours 01/28/19 12:20 Blood Culture - Preliminary Blood No Growth after 24 hours Assessment and Plan Plan: Febrile neutropenia - Fever persists. WBC increased 1.3 Hemodynamics are, however, stable. Cultures are negative. Pt has been seen by ID, and continued on Vanco and Cefepime. Continue Filgrastim. Expect improvement as WBC recovers. Dehydration - Improved with IV hydration. Continue same. UO is maintained Pancytopenia due to antineoplastic chemotherapy - On filgrastim as noted. Plt counts are in a safe range. Hgb is 6.7. 1 U PRBC will be ordered. Continue to monitor, and supplement as needed History of squamous cell carcinoma of the Rectum: - Status Post concurrent treatment with 5FU and Mitomycin chemotherapy and radiation: - Last Chemotherapy on 01/16/19 Neutropenic typhlitis - The pt has developed lower abd tenderness, which is new. - Given her low WBC, would treat as typhilitis. - Pt already on antibiotics and GCSF. - NPO except for sips and meds, till exam and WBC improve (from 01/29/19 - 01/30/19) - WBC have increased 1.3, will advance to clear liquids today Skin Excoriation with secondary fungal: - Antifungal systemic and topical powder - Hydrocortisone, topical Aquaphor and Topical lidocaine mix to area
[2019-01-30] MEDS: VANCOMYCIN 1,500 MG in SODIUM CHLORIDE 0.9% 250 ML IVPB SCH (14:35)
[2019-01-30] MEDS: ATORVASTATIN 40 MG TAB PO SCH (17:12)
[2019-01-30] MEDS: PROCHLORPERAZINE 10 MG TAB PO PRN (19:54)
[2019-01-30] MEDS ORDERED: PETROLATUM, WHITE OINT 50 GM TUBE TOPICAL PRN (20:44)
[2019-01-30] MEDS: LIDOCAINE 2% GEL 30 ML TUBE TOPICAL SCH (21:32)
[2019-01-30] MEDS: FLUCONAZOLE 150 MG TAB PO SCH (21:33)
[2019-01-30] MEDS: NYSTATIN 100,000 UNIT/GM POWD 15 GM TOPICAL SCH (21:33)
[2019-01-31] MEDS: MORPHINE SULFATE 4 MG/ML SYRINGE IV PRN ×3 (01:06→14:56)
[2019-01-31] MEDS: CEFEPIME 2 GM in SODIUM CHLORIDE 0.9% 100 ML IVPB SCH ×2 (01:07→17:28)
[2019-01-31] MEDS ORDERED: VANCOMYCIN TROUGH DUE 1 EACH MISC MISCELLANE ONE (05:00)
--- NOTE | 2019-01-31 06:11 | PN ---
PROGRESS NOTE DATE OF SERVICE: 01/30/2019 PRESENTING COMPLAINT: Tired. INTERVAL HISTORY: The patient has squamous cell carcinoma of the rectum who had received chemotherapy presented with neutropenic sepsis with perianal cellulitis and wound felt to be source of infection. Also got significant oral . Neutropenic enterocolitis cannot entirely be ruled out though patient has some abdominal pain. No diarrhea. Getting IV fluids. REVIEW OF SYSTEMS: Done for constitutional, cardiovascular, GI, pulmonary; relevant findings as above. The patient is only on ice chips. CURRENT MEDICATIONS: Current medications are reviewed that include IV cefepime, IV vancomycin. PHYSICAL EXAMINATION: On examination, afebrile, pulse 84, respiration 16, blood pressure 129/67, pulse ox 97% on room air. GENERAL APPEARANCE: Lying in bed, awake, tired. EYES: Pupils equal. Conjunctivae pale. NECK: JVD not raised. Mass not palpable. RESPIRATORY: Effort normal. LUNGS: Fair entry. HENT: Oral cavity, multiple tongue ulcers. LUNGS: Are clear. CARDIOVASCULAR: First and second sounds normal. No edema. ABDOMEN: Lower abdominal mild tenderness. No guarding or rigidity. Liver and spleen not palpable. PSYCHIATRY: Alert and oriented x3. Mood and affect tired appearing. Chest wall right-sided port. INVESTIGATIONS: White count 1.3, hemoglobin 8.1, platelets 59. Potassium 3.4, BUN 17, creatinine 0.92. ASSESSMENT: 1. Neutropenic sepsis felt to be from perirectal cellulitis and wound, slowly improving. 2. Neutropenic enterocolitis not entirely ruled out. 3. Squamous cell carcinoma of the rectum, status post chemotherapy and radiation. 4. Coronary artery disease. 5. Gastroesophageal reflux disease. 6. Hyperlipidemia. 7. Essential hypertension. 8. Chronic idiopathic insomnia. 9. Oral aphthous ulcers secondary to chemotherapy with . 10.Mild protein-calorie malnutrition from decreased oral intake with hypoalbuminemia. 11.Severe pancytopenia secondary to chemotherapy. PLAN: Continue treatment plan. Patient is on , IV cefepime and vancomycin, IV fluids. The patient will be started on clear liquids. MMODL / IJN: [id number] /
[2019-01-31 07:27] LABS: HCT 25.8 % (34.0-46.0); HGB 8.6 gm/dL (11.4-16.0); MCHC 33.5 g/dL (31.0-37.0); MCV 92.5 fL (80.0-100.0); Mean Platelet Volume 7.3; RBC 2.79 m/uL (3.80-5.40); RDW 15.9 % (11.5-15.5); WBC 4.3 k/uL (3.8-10.6)
[2019-01-31 07:33] LABS: Platelet Count 80 k/uL (150-450)
[2019-01-31] MEDS: CARVEDILOL 6.25 MG TAB PO SCH ×2 (08:22→17:28)
[2019-01-31] MEDS: APIXABAN 5 MG TAB PO SCH ×2 (08:22→20:55)
[2019-01-31] MEDS: ASPIRIN 81 MG PO SCH (08:22)
[2019-01-31] MEDS: VANCOMYCIN 1,500 MG in SODIUM CHLORIDE 0.9% 250 ML IVPB SCH ×2 (08:22→20:59)
[2019-01-31] MEDS: PANTOPRAZOLE 40 MG TABLET PO SCH ×3 (08:22→20:55)
[2019-01-31] MEDS: FILGRASTIM-SNDZ 480 MCG/0.8 ML SYRINGE SQ SCH (08:22)
[2019-01-31] MEDS: LOSARTAN 25 MG TAB PO SCH (08:23)
[2019-01-31] MEDS: FLUCONAZOLE 150 MG TAB PO SCH (08:23)
[2019-01-31] MEDS: LIDOCAINE 2% GEL 30 ML TUBE TOPICAL SCH ×2 (08:23→20:57)
[2019-01-31] MEDS: MAG HYDROX/AL HYDROX/SIMETH 30 ML, diphenhydrAMINE ELIXIR 75 MG, LIDOCAINE VISCOUS 30 ML PO SCH ×12 (08:24→20:56)
[2019-01-31] MEDS: NYSTATIN 100,000 UNIT/GM POWD 15 GM TOPICAL SCH ×3 (08:24→20:56)
[2019-01-31] MEDS: LACTATED RINGERS 1,000 ML IV SCH ×2 (08:24→20:54)
[2019-01-31 08:35] LABS: Band Neutrophils % 2 %; Lymphocytes # (M) 0.04 k/uL (1.0-4.8); Monocytes # (M) 0.26 k/uL (0-1.0); Neutrophils % (M) 91 %; Nucleated Red Blood Cells 0 /100 WBC (0-0); Total Cells Counted 100
[2019-01-31 08:36] LABS: Anisocytosis (M) Present
[2019-01-31 09:28] LABS: Calcium 7.3 mg/dL (8.4-10.2); Magnesium 2.2 mg/dL (1.6-2.3); Potassium 3.1 mmol/L (3.5-5.1); Total Bilirubin 0.6 mg/dL (0.2-1.3); Total Protein 4.3 g/dL (6.3-8.2)
--- NOTE | 2019-01-31 11:14 | P.PN ---
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 ,status post chemo and radiation therapy, last chemo has been about a week ago presented to hospital with a fever and pain to the ralph-rectal area On today's evaluation that is 01/30/2019, the patient overall fever pattern has improved, the patient is feeling slightly better , the patient denies chest pain shortness of breath or cough no nausea no vomiting, still complaining of pa in in the perirectal area with no worsening and no diarrhea Objective - Vital Signs Vital signs: Vital Signs Temp 98.3 F 01/30/19 11:20 Pulse 84 01/30/19 11:20 Resp 16 01/30/19 11:20 BP 129/67 01/30/19 11:20 Pulse Ox 97 01/30/19 11:20 Intake & Output 01/29/19 01/30/19 01/30/19 18:59 06:59 18:59 Intake Total 310 120 Output Total 1 Balance 310 119 Intake: Oral 0 120 Blood Product 310 Rc As-1 Unit 310 [id number] Output: Urine/Stool Mix 1 Other: Voiding Method Toilet # Voids 1 3 1 # Bowel Movements 1 1 1 - Exam GENERAL DESCRIPTION:[ Patient is awake and alert in no distress] HEENT: [Oral mucosa is dry and no pharyngeal erythema] EYES : [No pallor or scleral icterus] RESPIRATORY SYSTEM: [Unlabored breathing clear to auscultation] CARDIA VASCULAR SYSTEM: [S1-S2 regular rate and rhythm no murmur] GI: [Abdominal soft there's no tenderness no organomegaly] EXTREMITIES: [No edema feet] - Labs CBC & Chem 7: 01/31/19 07:10 01/31/19 07:10 Labs: Abnormal Lab Results - Last 24 Hours (Table) 01/29/19 01/30/19 Range/Units 09:49 06:20 Sodium 134 L (137-145) mmol/L Potassium 3.4 L (3.5-5.1) mmol/L Calcium 6.8 L (8.4-10.2) mg/dL Crossmatch See Detail Microbiology - Last 24 Hours (Table) 01/28/19 17:26 Urine Culture - Final Urine,Voided 01/28/19 13:50 Blood Culture - Preliminary Blood No Growth after 24 hours 01/28/19 12:20 Blood Culture - Preliminary Blood No Growth after 24 hours Assessment and Plan Assessment: 1-patient is a 73 -year-old female admitted hospital with sepsis in this patient who did have a fever tachycardia leukopenia/neutropenia in this patient with a 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 with underlying immunodeficiency possible source of this fever is the perirectal wound with secondary cellulitis for which we will need to cover for both gram- positive skin toma in addition to gram-negative pathogen 2-patient fever resolved, blood culture cultures remains to be negative so far white count remains to be low (1) Sepsis Current Visit: Yes Status: Acute Code(s): A41.9 - SEPSIS, UNSPECIFIED ORGANISM SNOMED Code(s): 27545706 (2) Perirectal cellulitis Current Visit: Yes Status: Acute Code(s): K61.1 - RECTAL ABSCESS SNOMED Code(s): 819912 (3) Febrile neutropenia Current Visit: Yes Status: Acute Code(s): D70.9 - NEUTROPENIA, UNSPECIFIED; R50.81 - FEVER PRESENTING WITH CONDITIONS CLASSIFIED ELSEWHERE SNOMED Code(s): 711550596 Plan: 1-vancomycin pharmacy to dose target trough of 15 while watching her kidney function and Vanco trough closely 2-cefepime 2 g every 8 hours 3-nystatin powder to bilateral groin wound area Time with Patient: Less than 30
[2019-01-31] MEDS: HYDROcodone/APAP 5-325MG 1 EACH TAB PO PRN ×2 (12:20→17:30)
--- NOTE | 2019-01-31 14:10 | P.PN ---
Subjective Progress Note Date: 01/31/19 Principal diagnosis: Rectal cancer Blood counts are in safe range today and she has remained afebrile for 24 hours She wants to increase activity. She has been attempting to keep excoriated open areas open to air more. Lido/Triam/Aquaphor topical mix and nystatin powder to wetness to continue. wash with cetaphil wash, provided for patient today. Objective - Vital Signs Vital signs: Vital Signs Temp 97.6 F 01/31/19 12:09 Pulse 81 01/31/19 12:09 Resp 17 01/31/19 12:09 BP 114/73 01/31/19 12:09 Pulse Ox 96 01/31/19 12:09 Intake & Output 01/30/19 01/31/19 01/31/19 18:59 06:59 18:59 Intake Total 1050 1090 Balance 1050 1090 Intake: Intake, IV Titration 1050 500 Amount Cefepime 2 gm In Sodium 100 Chloride 0.9% 100 ml @ 200 mls/hr IVPB Q12H [facility] Rx#:[id number] Lactated Ringers 1,000 ml 950 500 @ 125 mls/hr IV .Q8H [facility] Rx#:[id number] Oral 590 Other: Voiding Method Toilet Toilet # Voids 1 3 # Bowel Movements 1 - Exam - Constitutional General appearance: Present: no acute distress - EENT EENT Comment(s): persistent mucositis, mj lateral edges Eyes: Present: EOMI ENT: Present: pharyngeal erythema - Respiratory Respiratory: bilateral: CTA - Cardiovascular Rhythm: regular Heart sounds: normal: S1, S2 - Gastrointestinal General gastrointestinal: Present: normal bowel sounds, soft Localized gastrointestinal: tender: RLQ, LLQ - Integumentary Bilateral inguinal area excoriation and open skin, fungal, odor present and moisture, erythema - Neurologic Neurologic: Present: CNII-XII intact - Musculoskeletal Musculoskeletal: Present: generalized weakness, strength equal bilaterally - Psychiatric Psychiatric: Present: A&O x's 3, appropriate affect - Labs CBC & Chem 7: 01/31/19 07:10 01/31/19 07:10 Labs: Abnormal Lab Results - Last 24 Hours (Table) 01/31/19 01/31/19 Range/Units 07:10 07:10 RBC 2.79 L (3.80-5.40) m/uL Hgb 8.6 L (11.4-16.0) gm/dL Hct 25.8 L (34.0-46.0) % RDW 15.9 H (11.5-15.5) % Plt Count 80 L (150-450) k/uL Lymphocytes # (Manual) 0.04 L (1.0-4.8) k/uL Potassium 3.1 L (3.5-5.1) mmol/L Calcium 7.3 L (8.4-10.2) mg/dL AST 13 L (14-36) U/L Total Protein 4.3 L (6.3-8.2) g/dL Albumin 2.0 L (3.5-5.0) g/dL Microbiology - Last 24 Hours (Table) 01/28/19 13:50 Blood Culture - Preliminary Blood No Growth after 48 hours 01/28/19 12:20 Blood Culture - Preliminary Blood No Growth after 48 hours Assessment and Plan Plan: Febrile neutropenia - Fever persists. WBC increased 1.3 Hemodynamics are, however, stable. Cultures are negative. Pt has been seen by ID, and continued on Vanco and Cefepime. Continue Filgrastim. Expect improvement as WBC recovers. Dehydration - Improved with IV hydration. Continue same. UO is maintained Pancytopenia due to antineoplastic chemotherapy - On filgrastim as noted. Plt counts are in a safe range. Hgb is 6.7. 1 U PRBC will be ordered. Continue to monitor, and supplement as needed History of squamous cell carcinoma of the Rectum: - Status Post concurrent treatment with 5FU and Mitomycin chemotherapy and radiation: - Last Chemotherapy on 01/16/19 Neutropenic typhlitis - The pt has developed lower abd tenderness, which is new. - Given her low WBC, would treat as typhilitis. - Pt already on antibiotics and GCSF. - NPO except for sips and meds, till exam and WBC improve (from 01/29/19 - 01/30/19) - WBC have increased 1.3, will advance to clear liquids today Skin Excoriation with secondary fungal: - Antifungal systemic and topical powder - Hydrocortisone, topical Aquaphor and Topical lidocaine mix to area - Nystatin Powder to wetness in skin folds - Cetaphil wash PLAN: - Continue Zarxio today, likely discontinue in am - Continue skin care - Continue diflucan.
[2019-01-31] MEDS: DOCUSATE 100 MG CAP PO PRN (20:55)
--- NOTE | 2019-01-31 21:43 | PN ---
PROGRESS NOTE DATE OF SERVICE: January 31, 2019 PRESENTING COMPLAINT: Tired. INTERVAL HISTORY: The patient has squamous cell carcinoma of the rectum, received chemotherapy presented with neutropenic sepsis, felt to be from perianal cellulitis and wound. The patient has also got severe oral mucositis. Patient's fevers have come down. Did tolerate a liquid diet. Did also have some abdominal pain. The patient had 1 bowel movement. Does feel tired. Has been out of bed. REVIEW OF SYSTEMS: Done for constitutional, cardiovascular, GI, pulmonary; relevant findings as above. CURRENT MEDICATIONS: Reviewed that include IV cefepime, IV vancomycin, Damion solution. PHYSICAL EXAMINATION: VITAL SIGNS: Temperature 97.9, pulse 81, respirations 17, blood pressure 114/73, pulse ox 96% on room air. GENERAL APPEARANCE: Lying in bed, tired-appearing. EYES: Pupils equal. Conjunctivae pale. NECK: JVD not raised. Mass not palpable. RESPIRATORY: Effort normal. LUNGS: Fair air entry. CARDIOVASCULAR: 1st and 2nd sounds normal. No edema. ABDOMEN: Soft. Minimal tenderness. No guarding or rigidity. Liver and spleen not palpable. PSYCHIATRY: Alert and oriented times three. Mood and affect normal. Oral cavity ulcers on the side of the tongue. INVESTIGATIONS: White count 4.3, hemoglobin 8.6, platelets 80, potassium 3.1. BUN and creatinine is normal. Albumin 2.0. Blood cultures are growing gram-positive cocci in groups. ASSESSMENT: 1. Neutropenic sepsis with now blood cultures positive for gram-positive cocci, felt to be from perirectal cellulitis and wound with fevers coming down. 2. Neutropenic. 3. Squamous cell carcinoma of the rectum, status post chemotherapy and radiation. 4. Coronary artery disease. 5. Gastroesophageal reflux disease. 6. Hyperlipidemia. 7. Essential hypertension. 8. Chronic idiopathic insomnia. 9. Oral aphthous ulcer secondary to chemotherapy with mucositis. 10.Mild protein-calorie malnutrition from decreased oral intake with hypoalbuminemia. 11.Severe pancytopenia secondary to chemotherapy, responding to colony-stimulating factor. PLAN: Continue current medication and treatment plan including antibiotics. Care was discussed with the patient. Encouraged to be out of bed. I told the nurse to get the patient a donut so she could sit up on a chair. Also to encourage ambulation. Counts beginning to improve. The patient has been advanced to a full liquid diet. MMODL / IJN: [id number] /
--- NOTE | 2019-01-31 22:11 | P.PN ---
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 The patient clinical course complicated by development of bacteremia the blood culture be positive with gram-positive cocci On today's evaluation that is 01/31/2019, the patient fever pattern has improved, the patient is feeling slightly better , the patient denies chest pain shortness of breath or cough no nausea no vomiting, still complaining of pain in the perirectal as well as in the groin area with no worsening and denies any diarrhea . ROS: Positive points mentioned above rest of the systems negative Past medical and surgical history reviewed Medications reviewed Objective - Vital Signs Vital signs: Vital Signs Temp 97.9 F 01/31/19 05:00 Pulse 94 01/31/19 05:00 Resp 16 01/31/19 05:00 BP 130/72 01/31/19 05:00 Pulse Ox 91 L 01/31/19 05:00 Intake & Output 01/30/19 01/31/19 01/31/19 18:59 06:59 18:59 Intake Total 1050 1090 Balance 1050 1090 Intake: Intake, IV Titration 1050 500 Amount Cefepime 2 gm In Sodium 100 Chloride 0.9% 100 ml @ 200 mls/hr IVPB Q12H [facility] Rx#:[id number] Lactated Ringers 1,000 ml 950 500 @ 125 mls/hr IV .Q8H [facility] Rx#:[id number] Oral 590 Other: Voiding Method Toilet Toilet # Voids 1 3 # Bowel Movements 1 - Exam GENERAL DESCRIPTION:[ Patient is awake and alert in no distress] HEENT: [Oral mucosa is dry and no pharyngeal erythema] EYES : [No pallor or scleral icterus] RESPIRATORY SYSTEM: [Unlabored breathing clear to auscultation] CARDIA VASCULAR SYSTEM: [S1-S2 regular rate and rhythm no murmur] GI: [Abdominal soft there's no tenderness no organomegaly Bilateral groin area with superficial wound as well as the perirectal wound with minimal slough tissue but no drainage] EXTREMITIES: [No edema feet] - Labs CBC & Chem 7: 06/12/19 07:10 01/31/19 07:10 Labs: Abnormal Lab Results - Last 24 Hours (Table) 01/30/19 01/31/19 01/31/19 Range/Units 06:20 07:10 07:10 WBC 1.3 L* (3.8-10.6) k/uL RBC 2.58 L 2.79 L (3.80-5.40) m/uL Hgb 8.1 L 8.6 L (11.4-16.0) gm/dL Hct 24.2 L 25.8 L (34.0-46.0) % RDW 15.9 H 15.9 H (11.5-15.5) % Plt Count 59 L 80 L (150-450) k/uL Neutrophils # (Manual) 0.90 L (1.3-7.7) k/uL Lymphocytes # (Manual) 0.07 L 0.04 L (1.0-4.8) k/uL Nucleated RBCs 1 H (0-0) /100 WBC Potassium 3.1 L (3.5-5.1) mmol/L Calcium 7.3 L (8.4-10.2) mg/dL AST 13 L (14-36) U/L Total Protein 4.3 L (6.3-8.2) g/dL Albumin 2.0 L (3.5-5.0) g/dL Microbiology - Last 24 Hours (Table) 01/28/19 13:50 Blood Culture - Preliminary Blood No Growth after 48 hours 01/28/19 12:20 Blood Culture - Preliminary Blood No Growth after 48 hours Assessment and Plan Assessment: 1-patient is a 73 -year-old female admitted hospital with sepsis in this patient who did have a fever tachycardia leukopenia/neutropenia in this patient with a 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 with underlying immunodeficiency possible source of this fever is the perirectal wound with secondary cellulitis for which we will need to cover for both gram- positive skin toma in addition to gram-negative pathogen 2-patient blood culture came positive with gram-positive cocci source possible cellulitis versus port (1) Sepsis Current Visit: Yes Status: Acute Code(s): A41.9 - SEPSIS, UNSPECIFIED ORGANISM SNOMED Code(s): 19598381 (2) Perirectal cellulitis Current Visit: Yes Status: Acute Code(s): K61.1 - RECTAL ABSCESS SNOMED Code(s): 678618 (3) Febrile neutropenia Current Visit: Yes Status: Acute Code(s): D70.9 - NEUTROPENIA, UNSPECIFIED; R50.81 - FEVER PRESENTING WITH CONDITIONS CLASSIFIED ELSEWHERE SNOMED Code(s): 637578579 Plan: 1-vancomycin pharmacy to dose target trough of 15 while watching her kidney function and Vanco trough closely 2-cefepime 2 g every 8 hours 3-nystatin powder to bilateral groin wound area 4-blood cultures will be repeated to document clearance of bacteremia Time with Patient: Less than 30
[2019-02-01] MEDS: MORPHINE SULFATE 4 MG/ML SYRINGE IV PRN ×4 (02:00→20:18)
[2019-02-01] MEDS: CEFEPIME 2 GM in SODIUM CHLORIDE 0.9% 100 ML IVPB SCH ×2 (02:01→13:26)
[2019-02-01] MEDS: LACTATED RINGERS 1,000 ML IV SCH ×3 (02:38→20:17)
[2019-02-01] MEDS: HYDROcodone/APAP 5-325MG 1 EACH TAB PO PRN ×2 (05:08→16:16)
[2019-02-01 07:11] LABS: Anisocytosis Slight; HCT 23.5 % (34.0-46.0); HGB 7.9 gm/dL (11.4-16.0); MCH 30.6 pg (25.0-35.0); MCHC 33.7 g/dL (31.0-37.0); MCV 90.9 fL (80.0-100.0); Mean Platelet Volume 7.8; RBC 2.58 m/uL (3.80-5.40); WBC 6.7 k/uL (3.8-10.6)
[2019-02-01 07:33] LABS: Platelet Count 84 k/uL (150-450)
[2019-02-01 07:39] LABS: ALT 16 U/L (9-52); AST 13 U/L (14-36); African American GFR (CKD) >90 (>60 ml/min/1.73 sqM); Albumin 1.9 g/dL (3.5-5.0); Alkaline Phosphatase 106 U/L (38-126); Anion Gap 6 mmol/L; Blood Urea Nitrogen 12 mg/dL (7-17); Carbon Dioxide 23 mmol/L (22-30); Chloride 106 mmol/L (98-107); Glucose 105 mg/dL (74-99); Potassium 2.8 mmol/L (3.5-5.1); Sodium 135 mmol/L (137-145); Total Bilirubin 0.6 mg/dL (0.2-1.3)
[2019-02-01] MEDS ORDERED: Potassium Replacement Protocol 1 EACH MISC MISCELLANE PRN (08:26)
[2019-02-01] MEDS: ASPIRIN 81 MG PO SCH (08:40)
[2019-02-01] MEDS: CARVEDILOL 6.25 MG TAB PO SCH ×2 (08:40→16:16)
[2019-02-01] MEDS: LOSARTAN 25 MG TAB PO SCH (08:40)
[2019-02-01] MEDS: FLUCONAZOLE 100 MG TAB PO SCH (08:40)
[2019-02-01] MEDS: APIXABAN 5 MG TAB PO SCH ×2 (08:40→20:23)
[2019-02-01] MEDS: MAG HYDROX/AL HYDROX/SIMETH 30 ML, diphenhydrAMINE ELIXIR 75 MG, LIDOCAINE VISCOUS 30 ML PO SCH ×12 (08:41→23:06)
[2019-02-01] MEDS: NYSTATIN 100,000 UNIT/GM POWD 15 GM TOPICAL SCH ×3 (08:42→20:24)
[2019-02-01] MEDS: TRIAMCINOLONE ACET 0.1% OINTMENT 15 GM TUBE TOPICAL PRN ×2 (08:42→20:24)
[2019-02-01 08:43] LABS: Band Neutrophils % 7 %; Lymphocytes # (M) 0.07 k/uL (1.0-4.8); Metamyelocytes # (M) 0.13 k/uL (0); Metamyelocytes % 2 %; Monocytes # (M) 0.34 k/uL (0-1.0); Myelocytes # (M) 0.13 k/uL (0); Myelocytes % 2 %; Neutrophils % (M) 85 %; Nucleated Red Blood Cells 0 /100 WBC (0-0); Total Cells Counted 200
[2019-02-01] MEDS: LIDOCAINE 2% GEL 30 ML TUBE TOPICAL SCH ×2 (08:43→20:24)
[2019-02-01 08:46] LABS: Poikilocytosis (M) Present; Toxic Granulation Present
[2019-02-01] MEDS: POTASSIUM CHLORIDE 20 MEQ in WATER FOR INJECTION 1 100ML.BAG IVPB SCH ×3 (09:26→15:10)
--- NOTE | 2019-02-01 11:41 | P.PN ---
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 Status post excision of the fistula, fistulectomy. After the surgery patient received chemoradiotherapy urinary this month for possible limited perineal lesion. She presents with nausea vomiting, fever of 102 and leukopenia less than 1000. Patient last time she had a fever on 01/29/2019 at 100.9. WBC came back to normal at 6.7. Hemoglobin 7.9 and platelets 84. Potassium 2.8 has been replaced. Creatinine 0.7 Objective - Vital Signs Vital signs: Vital Signs Temp 98.2 F 02/01/19 05:00 Pulse 86 02/01/19 05:00 Resp 16 02/01/19 05:00 BP 144/70 02/01/19 05:00 Pulse Ox 96 02/01/19 05:00 Intake & Output 01/31/19 02/01/19 02/01/19 18:59 06:59 18:59 Intake Total 1950 2660 Balance 1950 2660 Weight 85.275 kg Intake: Intake, IV Titration 1350 1100 Amount Cefepime 2 gm In Sodium 100 100 Chloride 0.9% 100 ml @ 200 mls/hr IVPB Q12H [facility] Rx#:[id number] Lactated Ringers 1,000 ml 1000 750 @ 125 mls/hr IV .Q8H [facility] Rx#:[id number] Vancomycin 1,500 mg In 250 250 Sodium Chloride 0.9% 250 ml @ 125 mls/hr IVPB Q16H [facility] Rx#:[id number] Oral 600 1560 Other: Voiding Method Toilet Toilet Toilet # Voids 2 2 - Exam GENERAL: The patient is alert and oriented x3, not in any acute distress. Well developed, well nourished. HEENT: Pupils are round and equally reacting to light. EOMI. No scleral icterus. No conjunctival pallor. Normocephalic, atraumatic. No pharyngeal erythema. No thyromegaly. CARDIOVASCULAR: S1 and S2 present. No murmurs, rubs, or gallops. PULMONARY: Chest is clear to auscultation, no wheezing or crackles. -ABDOMEN: Soft, nontender, nondistended, normoactive bowel sounds. No palpable o rganomegaly. Rectal wound is healing with surrounding cellulitis. There is whole area of excoriated the skin with yellow discharge on the top of it around the anus with surrounding area of cellulitis. The area is red, hot and mildly tender MUSCULOSKELETAL: No joint swelling or deformity. EXTREMITIES: No cyanosis, clubbing, or pedal edema. NEUROLOGICAL: Gross neurological examination did not reveal any focal deficits. SKIN: No rashes. - Labs CBC & Chem 7: 02/01/19 06:49 02/01/19 06:49 Labs: Abnormal Lab Results - Last 24 Hours (Table) 02/01/19 02/01/19 Range/Units 06:49 06:49 RBC 2.58 L (3.80-5.40) m/uL Hgb 7.9 L (11.4-16.0) gm/dL Hct 23.5 L (34.0-46.0) % RDW 18.0 H (11.5-15.5) % Plt Count 84 L (150-450) k/uL Lymphocytes # (Manual) 0.07 L (1.0-4.8) k/uL Metamyelocytes # (Man) 0.13 H (0) k/uL Myelocytes # (Manual) 0.13 H (0) k/uL Sodium 135 L (137-145) mmol/L Potassium 2.8 L (3.5-5.1) mmol/L Glucose 105 H (74-99) mg/dL Calcium 7.0 L (8.4-10.2) mg/dL AST 13 L (14-36) U/L Total Protein 4.0 L (6.3-8.2) g/dL Albumin 1.9 L (3.5-5.0) g/dL Microbiology - Last 24 Hours (Table) 01/28/19 12:20 Blood Culture Gram Stain - Preliminary Blood Blood Culture - Preliminary Coagulase Negative Staph 01/28/19 13:50 Blood Culture - Preliminary Blood No Growth after 72 hours 01/28/19 12:20 Blood Culture - Final Blood Assessment and Plan Assessment: Surgical site infection, with cellulitis Febrile neutropenia, mostly secondary to above Sepsis secondary to above with systemic inflammatory response with fever, which is enough to meet SIRS criteria any neutropenic patient Pancytopenia secondary to chemotherapy Recent history of rectal cancer with fistula status post fistulectomy. Squamous cell cancer. Status post chemoradiotherapy yearly on . Electrolyte abnormality, hypokalemia. Been replaced Plan: this is a pleasant 73 years old female who presents with sepsis at rectal surgical site infection with cellulitis. Patient has febrile neutropenia. Follow-up recommendation from infectious disease and oncology team. Continue with antibiotics as per infectious disease team recommendation. Labs and medication were reviewed.. Continue same treatment. Continue with symptomatic treatment. Resume home medication. Monitor lytes and vitals. DVT and GI prophylaxis. Further recommendations of the clinical course of the patient DVT prophylaxis: Eliquis GI Prophylaxis: Protonix Prognosis is guarded
[2019-02-01] MEDS: FILGRASTIM-SNDZ 480 MCG/0.8 ML SYRINGE SQ SCH (13:27)
[2019-02-01] MEDS: PROCHLORPERAZINE 10 MG TAB PO PRN (14:05)
[2019-02-01] MEDS: VANCOMYCIN 1,500 MG in SODIUM CHLORIDE 0.9% 250 ML IVPB SCH (15:10)
[2019-02-01] MEDS: ATORVASTATIN 40 MG TAB PO SCH (16:16)
--- NOTE | 2019-02-01 17:38 | P.PN ---
Subjective Progress Note Date: 02/01/19 Principal diagnosis: Rectal cancer Blood counts are in safe range today Valdo stopped She is improved Objective - Vital Signs Vital signs: Vital Signs Temp 98.4 F 02/01/19 12:25 Pulse 77 02/01/19 12:25 Resp 17 02/01/19 12:25 BP 148/75 02/01/19 12:25 Pulse Ox 97 02/01/19 12:25 Intake & Output 01/31/19 02/01/19 02/01/19 18:59 06:59 18:59 Intake Total 1950 2660 900 Balance 1950 2660 900 Weight 85.275 kg Intake: Intake, IV Titration 1350 1100 900 Amount Cefepime 2 gm In Sodium 100 100 200 Chloride 0.9% 100 ml @ 200 mls/hr IVPB Q12H [facility] Rx#:[id number] Lactated Ringers 1,000 ml 1000 750 500 @ 125 mls/hr IV .Q8H [facility] Rx#:[id number] Potassium Chloride 20 meq 200 In Water For Injection 1 100ml.bag @ 50 mls/hr IVPB Q2H [facility] Rx#: [id number] Vancomycin 1,500 mg In 250 250 Sodium Chloride 0.9% 250 ml @ 125 mls/hr IVPB Q16H [facility] Rx#:[id number] Oral 600 1560 Other: Voiding Method Toilet Toilet Toilet # Voids 2 2 - Exam - Constitutional General appearance: Present: no acute distress - EENT EENT Comment(s): persistent mucositis, mj lateral edges Eyes: Present: EOMI ENT: Present: pharyngeal erythema - Respiratory Respiratory: bilateral: CTA - Cardiovascular Rhythm: regular Heart sounds: normal: S1, S2 - Gastrointestinal General gastrointestinal: Present: normal bowel sounds, soft Localized gastrointestinal: tender: RLQ, LLQ - Integumentary Bilateral inguinal area excoriation and open skin, fungal, odor present and moisture, erythema - Neurologic Neurologic: Present: CNII-XII intact - Musculoskeletal Musculoskeletal: Present: generalized weakness, strength equal bilaterally - Psychiatric Psychiatric: Present: A&O x's 3, appropriate affect - Labs CBC & Chem 7: 02/01/19 06:49 02/01/19 06:49 Labs: Abnormal Lab Results - Last 24 Hours (Table) 02/01/19 02/01/19 Range/Units 06:49 06:49 RBC 2.58 L (3.80-5.40) m/uL Hgb 7.9 L (11.4-16.0) gm/dL Hct 23.5 L (34.0-46.0) % RDW 18.0 H (11.5-15.5) % Plt Count 84 L (150-450) k/uL Lymphocytes # (Manual) 0.07 L (1.0-4.8) k/uL Metamyelocytes # (Man) 0.13 H (0) k/uL Myelocytes # (Manual) 0.13 H (0) k/uL Sodium 135 L (137-145) mmol/L Potassium 2.8 L (3.5-5.1) mmol/L Glucose 105 H (74-99) mg/dL Calcium 7.0 L (8.4-10.2) mg/dL AST 13 L (14-36) U/L Total Protein 4.0 L (6.3-8.2) g/dL Albumin 1.9 L (3.5-5.0) g/dL Microbiology - Last 24 Hours (Table) 01/28/19 13:50 Blood Culture - Preliminary Blood No Growth after 96 hours 01/28/19 12:20 Blood Culture Gram Stain - Preliminary Blood Blood Culture - Preliminary Coagulase Negative Staph 01/28/19 12:20 Blood Culture - Final Blood Assessment and Plan Plan: Febrile neutropenia - Fever persists. Hemodynamics are, however, stable. Cultures are negative. Pt has been seen by ID, and continued on Vanco and Cefepime. Continue Filgrastim. Expect improvement as WBC recovers. Dehydration - Improved with IV hydration. Continue same. UO is maintained Pancytopenia due to antineoplastic chemotherapy History of squamous cell carcinoma of the Rectum: - Status Post concurrent treatment with 5FU and Mitomycin chemotherapy and radiation: - Last Chemotherapy on 01/16/19 Neutropenic typhlitis - The pt has developed lower abd tenderness, which is new. - Given her low WBC, would treat as typhilitis. - Pt already on antibiotics and GCSF Dc. - NPO except for sips and meds, till exam and WBC improve (from 01/29/19 - 01/30/19) - WBC have increased 7, will advance to clear liquids today Skin Excoriation with secondary fungal: - Antifungal systemic and topical powder - Hydrocortisone, topical Aquaphor and Topical lidocaine mix to area - Nystatin Powder to wetness in skin folds - Cetaphil wash PLAN: - Discontinue Zarxio - Continue skin care - Continue diflucan.
[2019-02-01] MEDS: PANTOPRAZOLE 40 MG TABLET PO SCH (20:23)
--- NOTE | 2019-02-01 22:36 | P.PN ---
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 The patient blood culture has been finalized and staph epi likely contamination On today's evaluation that is 02/01/2019, the patient denies any further fever or chills , the patient denies chest pain shortness of breath or cough no nausea no vomiting, pain in the perirectal as well as in the groin area has decreased in intensity the patient denies any diarrhea . Objective - Vital Signs Vital signs: Vital Signs Temp 98.2 F 02/01/19 05:00 Pulse 86 02/01/19 05:00 Resp 16 02/01/19 05:00 BP 144/70 02/01/19 05:00 Pulse Ox 96 02/01/19 05:00 Intake & Output 01/31/19 02/01/19 02/01/19 18:59 06:59 18:59 Intake Total 1950 2660 Balance 1950 2660 Weight 85.275 kg Intake: Intake, IV Titration 1350 1100 Amount Cefepime 2 gm In Sodium 100 100 Chloride 0.9% 100 ml @ 200 mls/hr IVPB Q12H [facility] Rx#:[id number] Lactated Ringers 1,000 ml 1000 750 @ 125 mls/hr IV .Q8H [facility] Rx#:[id number] Vancomycin 1,500 mg In 250 250 Sodium Chloride 0.9% 250 ml @ 125 mls/hr IVPB Q16H [facility] Rx#:[id number] Oral 600 1560 Other: Voiding Method Toilet Toilet Toilet # Voids 2 2 - Exam GENERAL DESCRIPTION:[ Patient is awake and alert in no distress] HEENT: [Oral mucosa is dry and no pharyngeal erythema] EYES : [No pallor or scleral icterus] RESPIRATORY SYSTEM: [Unlabored breathing clear to auscultation] CARDIA VASCULAR SYSTEM: [S1-S2 regular rate and rhythm no murmur] GI: [Abdominal soft there's no tenderness no organomegaly Bilateral groin area with superficial wound as well as the perirectal wound with minimal slough tissue but no drainage] EXTREMITIES: [No edema feet] - Labs CBC & Chem 7: 02/01/19 06:49 02/01/19 18:55 Labs: Abnormal Lab Results - Last 24 Hours (Table) 02/01/19 02/01/19 Range/Units 06:49 06:49 RBC 2.58 L (3.80-5.40) m/uL Hgb 7.9 L (11.4-16.0) gm/dL Hct 23.5 L (34.0-46.0) % RDW 18.0 H (11.5-15.5) % Plt Count 84 L (150-450) k/uL Lymphocytes # (Manual) 0.07 L (1.0-4.8) k/uL Metamyelocytes # (Man) 0.13 H (0) k/uL Myelocytes # (Manual) 0.13 H (0) k/uL Sodium 135 L (137-145) mmol/L Potassium 2.8 L (3.5-5.1) mmol/L Glucose 105 H (74-99) mg/dL Calcium 7.0 L (8.4-10.2) mg/dL AST 13 L (14-36) U/L Total Protein 4.0 L (6.3-8.2) g/dL Albumin 1.9 L (3.5-5.0) g/dL Microbiology - Last 24 Hours (Table) 01/28/19 12:20 Blood Culture Gram Stain - Preliminary Blood Blood Culture - Preliminary Coagulase Negative Staph 01/28/19 13:50 Blood Culture - Preliminary Blood No Growth after 72 hours 01/28/19 12:20 Blood Culture - Final Blood Assessment and Plan Assessment: 1-patient is a 73 -year-old female admitted hospital with sepsis in this patient who did have a fever tachycardia leukopenia/neutropenia in this patient with a 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 with underlying immunodeficiency possible source of this fever is the perirectal wound with secondary cellulitis for which we will need to cover for both gram- positive skin toma in addition to gram-negative pathogen 2-patient blood culture came positive with Staphylococcus epidermidis likely skin contamination follow-up blood culture has been negative so far (1) Sepsis Current Visit: Yes Status: Acute Code(s): A41.9 - SEPSIS, UNSPECIFIED ORGANISM SNOMED Code(s): 26758659 (2) Perirectal cellulitis Current Visit: Yes Status: Acute Code(s): K61.1 - RECTAL ABSCESS SNOMED Code(s): 636495 (3) Febrile neutropenia Current Visit: Yes Status: Acute Code(s): D70.9 - NEUTROPENIA, UNSPECIFIED; R50.81 - FEVER PRESENTING WITH CONDITIONS CLASSIFIED ELSEWHERE SNOMED Code(s): 221305533 Plan: 1-vancomycin pharmacy to dose target trough of 15 while watching her kidney function and Vanco trough closely 2-cefepime 2 g every 8 hours 3-nystatin powder to bilateral groin wound area 4-patient to continue with current antibiotic therapy will monitor her clinical course closely Time with Patient: Less than 30
[2019-02-02] MEDS: LACTATED RINGERS 1,000 ML IV SCH ×3 (01:29→18:26)
[2019-02-02] MEDS: CEFEPIME 2 GM in SODIUM CHLORIDE 0.9% 100 ML IVPB SCH ×2 (01:35→15:27)
[2019-02-02] MEDS: HYDROcodone/APAP 5-325MG 1 EACH TAB PO PRN ×3 (01:36→21:35)
[2019-02-02] MEDS: PROCHLORPERAZINE 10 MG TAB PO PRN (01:41)
[2019-02-02] MEDS: VANCOMYCIN 1,500 MG in SODIUM CHLORIDE 0.9% 250 ML IVPB SCH ×2 (05:30→21:37)
[2019-02-02] MEDS: MORPHINE SULFATE 4 MG/ML SYRINGE IV PRN ×2 (05:37→12:11)
[2019-02-02 09:15] LABS: Anisocytosis Slight; HCT 25.8 % (34.0-46.0); HGB 8.5 gm/dL (11.4-16.0); MCH 30.5 pg (25.0-35.0); MCHC 33.1 g/dL (31.0-37.0); MCV 92.2 fL (80.0-100.0); Mean Platelet Volume 8.2; Platelet Count 107 k/uL (150-450); RDW 18.4 % (11.5-15.5)
[2019-02-02 09:34] LABS: ALT 14 U/L (9-52); AST 25 U/L (14-36); African American GFR (CKD) >90 (>60 ml/min/1.73 sqM); Alkaline Phosphatase 188 U/L (38-126); Anion Gap 6 mmol/L; Blood Urea Nitrogen 10 mg/dL (7-17); Calcium 7.2 mg/dL (8.4-10.2); Carbon Dioxide 24 mmol/L (22-30); Chloride 106 mmol/L (98-107); Glucose 69 mg/dL (74-99); Magnesium 1.9 mg/dL (1.6-2.3); Sodium 136 mmol/L (137-145); Total Bilirubin 0.8 mg/dL (0.2-1.3); Total Protein 4.3 g/dL (6.3-8.2)
[2019-02-02 09:35] LABS: Potassium 3.7 mmol/L (3.5-5.1)
[2019-02-02] MEDS: APIXABAN 5 MG TAB PO SCH ×2 (10:19→19:57)
[2019-02-02] MEDS: PANTOPRAZOLE 40 MG TABLET PO SCH ×2 (10:19→19:58)
[2019-02-02] MEDS: ASPIRIN 81 MG PO SCH (10:19)
[2019-02-02] MEDS: CARVEDILOL 6.25 MG TAB PO SCH ×2 (10:19→18:28)
[2019-02-02] MEDS: FLUCONAZOLE 100 MG TAB PO SCH (10:20)
[2019-02-02] MEDS: LIDOCAINE 2% GEL 30 ML TUBE TOPICAL SCH ×2 (10:20→19:59)
[2019-02-02] MEDS: LOSARTAN 25 MG TAB PO SCH (10:20)
[2019-02-02] MEDS: MAG HYDROX/AL HYDROX/SIMETH 30 ML, diphenhydrAMINE ELIXIR 75 MG, LIDOCAINE VISCOUS 30 ML PO SCH ×15 (10:21→19:58)
[2019-02-02] MEDS: TRIAMCINOLONE ACET 0.1% OINTMENT 15 GM TUBE TOPICAL PRN (10:21)
[2019-02-02] MEDS: NYSTATIN 100,000 UNIT/GM POWD 15 GM TOPICAL SCH ×3 (10:25→19:59)
[2019-02-02 11:07] LABS: Band Neutrophils % 8 %; Monocytes # (M) 0.31 k/uL (0-1.0); Neutrophils % (M) 90 %; Nucleated Red Blood Cells 1 /100 WBC (0-0); Total Cells Counted 200; WBC 10.2 k/uL (3.8-10.6)
[2019-02-02 11:09] LABS: Anisocytosis (M) Present; Poikilocytosis (M) Present
--- NOTE | 2019-02-02 13:26 | P.PN ---
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 Status post excision of the fistula, fistulectomy. After the surgery patient received chemoradiotherapy urinary this month for possible limited perineal lesion. She presents with nausea vomiting, fever of 102 and leukopenia less than 1000. Patient last time she had a fever on 01/29/2019 at 100.9. WBC came back to normal at 6.7. Hemoglobin 7.9 and platelets 84. Potassium 2.8 has been replaced. Creatinine 0.7 02/02/2019 Patient general weakness is improving. She is fully awake and oriented. Also perineal area infection and pain in the area is improving with broad-spectrum antibiotics. She is currently on cefepime, IV vancomycin and fluconazole. Vitals are stable. WBC is 10.2, hemoglobin improved to 8.5, platelet went up to 107. Creatinine is normal at 0.7. Potassium within normal limits today. Oncology team are following the case. Blood culture is positive for calculus negative staph. Infectious disease team R following the case closely. Continue with the Eliquis and parenteral hydration. Physical therapy recommended home health care which was ordered already. Objective - Vital Signs Vital signs: Vital Signs Temp 98.6 F 02/02/19 12:14 Pulse 76 02/02/19 12:14 Resp 16 02/02/19 12:14 BP 124/70 02/02/19 12:14 Pulse Ox 96 02/02/19 12:14 Intake & Output 02/01/19 02/02/19 02/02/19 18:59 06:59 18:59 Intake Total 900 Balance 900 Weight 85.275 kg Intake: Intake, IV Titration 900 Amount Cefepime 2 gm In Sodium 200 Chloride 0.9% 100 ml @ 200 mls/hr IVPB Q12H [facility] Rx#:[id number] Lactated Ringers 1,000 ml 500 @ 125 mls/hr IV .Q8H [facility] Rx#:[id number] Potassium Chloride 20 meq 200 In Water For Injection 1 100ml.bag @ 50 mls/hr IVPB Q2H [facility] Rx#: [id number] Other: Voiding Method Toilet Toilet Toilet # Voids 3 - Exam GENERAL: The patient is alert and oriented x3, not in any acute distress. Well developed, well nourished. HEENT: Pupils are round and equally reacting to light. EOMI. No scleral icterus. No conjunctival pallor. Normocephalic, atraumatic. No pharyngeal erythema. No thyromegaly. CARDIOVASCULAR: S1 and S2 present. No murmurs, rubs, or gallops. PULMONARY: Chest is clear to auscultation, no wheezing or crackles. -ABDOMEN: Soft, nontender, nondistended, normoactive bowel sounds. No palpable organomegaly. Rectal wound is healing with surrounding cellulitis. There is whole area of excoriated the skin with yellow discharge on the top of it around the anus with surrounding area of cellulitis. The area is red, hot and mildly tender MUSCULOSKELETAL: No joint swelling or deformity. EXTREMITIES: No cyanosis, clubbing, or pedal edema. NEUROLOGICAL: Gross neurological examination did not reveal any focal deficits. SKIN: No rashes. - Labs CBC & Chem 7: 02/02/19 08:10 02/02/19 08:10 Labs: Abnormal Lab Results - Last 24 Hours (Table) 02/01/19 02/02/19 02/02/19 Range/Units 18:55 08:10 08:10 RBC 2.80 L (3.80-5.40) m/uL Hgb 8.5 L (11.4-16.0) gm/dL Hct 25.8 L (34.0-46.0) % RDW 18.4 H (11.5-15.5) % Plt Count 107 L (150-450) k/uL Neutrophils # (Manual) 9.90 H (1.3-7.7) k/uL Lymphocytes # (Manual) 0.10 L (1.0-4.8) k/uL Nucleated RBCs 1 H (0-0) /100 WBC Sodium 136 L (137-145) mmol/L Potassium 3.4 L (3.5-5.1) mmol/L Glucose 69 L (74-99) mg/dL Calcium 7.2 L (8.4-10.2) mg/dL Alkaline Phosphatase 188 H (38-126) U/L Total Protein 4.3 L (6.3-8.2) g/dL Albumin 2.0 L (3.5-5.0) g/dL Microbiology - Last 24 Hours (Table) 01/28/19 12:20 Blood Culture Gram Stain - Final Blood Blood Culture - Final Coagulase Negative Staph 01/31/19 18:30 Blood Culture - Preliminary Blood No Growth after 24 hours 01/28/19 13:50 Blood Culture - Preliminary Blood No Growth after 96 hours Assessment and Plan Assessment: Surgical site infection, with cellulitis Febrile neutropenia, mostly secondary to above Sepsis secondary to above with systemic inflammatory response with fever, which is enough to meet SIRS criteria any neutropenic patient Pancytopenia secondary to chemotherapy Recent history of rectal cancer with fistula status post fistulectomy. Squamous cell cancer. Status post chemoradiotherapy yearly on . Electrolyte abnormality, hypokalemia. Been replaced Plan: this is a pleasant 73 years old female who presents with sepsis at rectal surgical site infection with cellulitis. Patient has febrile neutropenia. Follow-up recommendation from infectious disease and oncology team. Continue with antibiotics as per infectious disease team recommendation. Labs and medication were reviewed.. Continue same treatment. Continue with symptomatic treatment. Resume home medication. Monitor lytes and vitals. DVT and GI prophylaxis. Further recommendations of the clinical course of the patient DVT prophylaxis: Eliquis GI Prophylaxis: Protonix Prognosis is guarded
--- NOTE | 2019-02-02 13:53 | P.PN ---
Subjective Progress Note Date: 02/02/19 Principal diagnosis: Rectal cancer written instructins on skin care provided Objective - Vital Signs Vital signs: Vital Signs Temp 98.6 F 02/02/19 12:14 Pulse 76 02/02/19 12:14 Resp 16 02/02/19 12:14 BP 124/70 02/02/19 12:14 Pulse Ox 96 02/02/19 12:14 Intake & Output 02/01/19 02/02/19 02/02/19 18:59 06:59 18:59 Intake Total 900 Balance 900 Weight 85.275 kg Intake: Intake, IV Titration 900 Amount Cefepime 2 gm In Sodium 200 Chloride 0.9% 100 ml @ 200 mls/hr IVPB Q12H [facility] Rx#:[id number] Lactated Ringers 1,000 ml 500 @ 125 mls/hr IV .Q8H [facility] Rx#:[id number] Potassium Chloride 20 meq 200 In Water For Injection 1 100ml.bag @ 50 mls/hr IVPB Q2H [facility] Rx#: [id number] Other: Voiding Method Toilet Toilet Toilet # Voids 3 - Exam - Constitutional General appearance: Present: no acute distress - EENT EENT Comment(s): persistent mucositis, mj lateral edges Eyes: Present: EOMI ENT: Present: pharyngeal erythema - Respiratory Respiratory: bilateral: CTA - Cardiovascular Rhythm: regular Heart sounds: normal: S1, S2 - Gastrointestinal General gastrointestinal: Present: normal bowel sounds, soft Localized gastrointestinal: tender: RLQ, LLQ - Integumentary Bilateral inguinal area excoriation and open skin, fungal, odor present and moisture, erythema - Neurologic Neurologic: Present: CNII-XII intact - Musculoskeletal Musculoskeletal: Present: generalized weakness, strength equal bilaterally - Psychiatric Psychiatric: Present: A&O x's 3, appropriate affect - Labs CBC & Chem 7: 02/02/19 08:10 02/02/19 08:10 Labs: Abnormal Lab Results - Last 24 Hours (Table) 02/01/19 02/02/19 02/02/19 Range/Units 18:55 08:10 08:10 RBC 2.80 L (3.80-5.40) m/uL Hgb 8.5 L (11.4-16.0) gm/dL Hct 25.8 L (34.0-46.0) % RDW 18.4 H (11.5-15.5) % Plt Count 107 L (150-450) k/uL Neutrophils # (Manual) 9.90 H (1.3-7.7) k/uL Lymphocytes # (Manual) 0.10 L (1.0-4.8) k/uL Nucleated RBCs 1 H (0-0) /100 WBC Sodium 136 L (137-145) mmol/L Potassium 3.4 L (3.5-5.1) mmol/L Glucose 69 L (74-99) mg/dL Calcium 7.2 L (8.4-10.2) mg/dL Alkaline Phosphatase 188 H (38-126) U/L Total Protein 4.3 L (6.3-8.2) g/dL Albumin 2.0 L (3.5-5.0) g/dL Microbiology - Last 24 Hours (Table) 01/28/19 12:20 Blood Culture Gram Stain - Final Blood Blood Culture - Final Coagulase Negative Staph 01/31/19 18:30 Blood Culture - Preliminary Blood No Growth after 24 hours 01/28/19 13:50 Blood Culture - Preliminary Blood No Growth after 96 hours Assessment and Plan Plan: Febrile neutropenia - Fever persists. Hemodynamics are, however, stable. Cultures are negative. Pt has been seen by ID, and continued on Vanco and Cefepime. Continue Filgrastim. Expect improvement as WBC recovers. Dehydration - Improved with IV hydration. Continue same. UO is maintained Pancytopenia due to antineoplastic chemotherapy History of squamous cell carcinoma of the Rectum: - Status Post concurrent treatment with 5FU and Mitomycin chemotherapy and radiation: - Last Chemotherapy on 01/16/19 Neutropenic typhlitis - The pt has developed lower abd tenderness, which is new. - Given her low WBC, would treat as typhilitis. - Pt already on antibiotics and GCSF Dc. - NPO except for sips and meds, till exam and WBC improve (from 01/29/19 - 01/30/19) - WBC have increased 7, will advance to clear liquids today Skin Excoriation with secondary fungal: - Antifungal systemic and topical powder - Hydrocortisone, topical Aquaphor and Topical lidocaine mix to area - Nystatin Powder to wetness in skin folds - Cetaphil wash PLAN: - Written instructions on skin care provided and will have her follow-up in office to re-aqssess next week - Dieticien and food intake diary - increase activity
[2019-02-02] MEDS ORDERED: VANCOMYCIN TROUGH DUE 1 EACH MISC MISCELLANE ONE (21:00)
[2019-02-03] MEDS: CEFEPIME 2 GM in SODIUM CHLORIDE 0.9% 100 ML IVPB SCH ×2 (02:39→13:40)
[2019-02-03] MEDS: LACTATED RINGERS 1,000 ML IV SCH ×3 (03:55→17:14)
[2019-02-03] MEDS: HYDROcodone/APAP 5-325MG 1 EACH TAB PO PRN ×3 (03:55→18:40)
[2019-02-03 07:33] LABS: African American GFR (CKD) >90 (>60 ml/min/1.73 sqM); Anion Gap 6 mmol/L; Blood Urea Nitrogen 9 mg/dL (7-17); Calcium 7.2 mg/dL (8.4-10.2); Carbon Dioxide 24 mmol/L (22-30); Chloride 105 mmol/L (98-107); Glucose 91 mg/dL (74-99); Sodium 135 mmol/L (137-145)
[2019-02-03] MEDS ORDERED: Potassium Replacement Protocol 1 EACH MISC MISCELLANE PRN (07:57)
[2019-02-03] MEDS: LOSARTAN 25 MG TAB PO SCH (08:48)
[2019-02-03] MEDS: APIXABAN 5 MG TAB PO SCH ×2 (08:48→20:25)
[2019-02-03] MEDS: ASPIRIN 81 MG PO SCH (08:48)
[2019-02-03] MEDS: POTASSIUM CHLORIDE ER 20 MEQ TAB.ER PO SCH ×2 (08:48→12:03)
[2019-02-03] MEDS: PANTOPRAZOLE 40 MG TABLET PO SCH ×2 (08:49→20:25)
[2019-02-03] MEDS: FLUCONAZOLE 100 MG TAB PO SCH (08:49)
[2019-02-03] MEDS: TRIAMCINOLONE ACET 0.1% OINTMENT 15 GM TUBE TOPICAL PRN (08:49)
[2019-02-03] MEDS: MAG HYDROX/AL HYDROX/SIMETH 30 ML, diphenhydrAMINE ELIXIR 75 MG, LIDOCAINE VISCOUS 30 ML PO SCH ×12 (08:49→20:25)
[2019-02-03] MEDS: CARVEDILOL 6.25 MG TAB PO SCH ×2 (08:49→17:14)
[2019-02-03] MEDS: LIDOCAINE 2% GEL 30 ML TUBE TOPICAL SCH ×2 (08:50→20:26)
[2019-02-03] MEDS: NYSTATIN 100,000 UNIT/GM POWD 15 GM TOPICAL SCH ×3 (08:50→20:26)
[2019-02-03] MEDS ORDERED: MORPHINE SULFATE 2 MG/ML SYRINGE IVP PRN (09:35)
--- NOTE | 2019-02-03 13:12 | P.PN ---
Subjective Progress Note Date: 02/03/19 He looks much better overall. However she states that she still doesn't feel good, with complains of weakness, and decreased appetite. She has bilateral leg and feet. She is concerned about toenail infection in the left big toe. Inflammation in the intertriginous area of the lower abdomen is still quite significant and painful though it has improved somewhat. She complains of difficulty sleeping. Objective - Vital Signs Vital signs: Vital Signs Temp 98.4 F 02/03/19 12:46 Pulse 72 02/03/19 12:46 Resp 16 02/03/19 12:46 BP 131/85 02/03/19 12:46 Pulse Ox 95 02/03/19 12:46 Intake & Output 02/02/19 02/03/19 02/03/19 18:59 06:59 18:59 Intake Total 1100 Balance 1100 Weight 85.275 kg Intake: Intake, IV Titration 1100 Amount Cefepime 2 gm In Sodium 100 Chloride 0.9% 100 ml @ 200 mls/hr IVPB Q12H [facility] Rx#:[id number] Lactated Ringers 1,000 ml 1000 @ 125 mls/hr IV .Q8H [facility] Rx#:[id number] Other: Voiding Method Toilet Toilet # Voids 2 - Constitutional General appearance: Present: no acute distress - EENT Eyes: Present: EOMI ENT: Present: hearing grossly normal, normal oropharynx - Respiratory Respiratory: bilateral: CTA - Cardiovascular Rhythm: regular Heart sounds: normal: S1, S2 - Gastrointestinal General gastrointestinal: Present: normal bowel sounds, soft - Integumentary Integumentary: Present: cellulitis (intertriginous area lower abdomen. Significant inflammation, and desquamation. Quite tender to touch. However, improved from before) - Neurologic Neurologic: Present: CNII-XII intact - Musculoskeletal Musculoskeletal: Present: generalized weakness, strength equal bilaterally - Psychiatric Psychiatric: Present: A&O x's 3, appropriate affect - Labs CBC & Chem 7: 02/02/19 08:10 02/03/19 06:26 Labs: Abnormal Lab Results - Last 24 Hours (Table) 02/03/19 Range/Units 06:26 Sodium 135 L (137-145) mmol/L Potassium 3.0 L (3.5-5.1) mmol/L Calcium 7.2 L (8.4-10.2) mg/dL Microbiology - Last 24 Hours (Table) 01/31/19 18:30 Blood Culture - Preliminary Blood No Growth after 48 hours 01/28/19 13:50 Blood Culture - Preliminary Blood No Growth after 120 hours Assessment and Plan (1) Febrile neutropenia Narrative/Plan: This has resolved. Cultures remained negative,Other than the initial blood culture that was positive for coag-negative staph, with repeat negative. This indicates that the initial one was likely a contaminant. The G-C SF has been d iscontinued. Defer to ID service for antibiotic recommendations Current Visit: Yes Status: Acute Code(s): D70.9 - NEUTROPENIA, UNSPECIFIED; R50.81 - FEVER PRESENTING WITH CONDITIONS CLASSIFIED ELSEWHERE SNOMED Code(s): 335834156 (2) Pancytopenia due to antineoplastic chemotherapy Narrative/Plan: BC has recovered. Other counts are in a safe range. Expect continued improvement as the patient gets further out from chemotherapy Current Visit: Yes Status: Acute Code(s): D61.810 - ANTINEOPLASTIC CHEMOTHERAPY INDUCED PANCYTOPENIA; T45.1X5A - ADVERSE EFFECT OF ANTINEOPLASTIC AND IMMUNOSUP DRUGS, INIT SNOMED Code(s): 845189374202335 (3) History of squamous cell carcinoma Narrative/Plan: Restaging studies will be done about 5-6 weeks after completion of treatment Current Visit: Yes Status: Acute Code(s): Z85.89 - PERSONAL HISTORY OF MALIGNANT NEOPLASM OF ORGANS AND SYSTEMS SNOMED Code(s): 47029347197002 (4) Neutropenic typhlitis Narrative/Plan: This seems to have resolved with normalization of WBC, and marked improvement in abdominal exam. Diet has been advanced with good tolerance the overall appetite is still low. Appetite is again expected to improve as the patient gets further out from chemotherapy Current Visit: Yes Status: Acute Code(s): K36 - OTHER APPENDICITIS SNOMED Code(s): 4036197 (5) Pain after radiation therapy Narrative/Plan: The patient has significant pain in the perirectal area due to treatment effect. Also has pain in the lower abdomen due to cellulitis. Overall she is improving, and does not want to use the IV morphine unless absolutely necessary. IV morphine dose will be decreased to 2 mg every 6 hours when necessary. She will use [place] when necessary as the primary pain medication. Current Visit: Yes Status: Acute Code(s): R52 - PAIN, UNSPECIFIED; Y84.2 - RADIOLOG PROC/RADIOTHRPY CAUSE ABN REACT/COMPL, W/O MISADVNT SNOMED Code(s): 81637790 Plan: # Restoril will be prescribed as a sleep aid #The patient was concerned about her left big toe infection. On exam this area is tender but there is no significant erythema or fluctuation. The patient was reassured that he is on treatment with strong, broad-spectrum antibiotics. I will ask ID to evaluate. If Acute podiatry intervention is not felt to be required, she will follow-up with a lead tinner as an outpatient
[2019-02-03] MEDS: VANCOMYCIN 1,500 MG in SODIUM CHLORIDE 0.9% 250 ML IVPB SCH (13:30)
[2019-02-03] MEDS: ATORVASTATIN 40 MG TAB PO SCH (17:14)
[2019-02-03] MEDS: TEMAZEPAM 15 MG CAP PO PRN (20:25)
[2019-02-04] MEDS: HYDROcodone/APAP 5-325MG 1 EACH TAB PO PRN ×2 (02:23→17:29)
[2019-02-04] MEDS: CEFEPIME 2 GM in SODIUM CHLORIDE 0.9% 100 ML IVPB SCH ×2 (02:23→14:23)
[2019-02-04] MEDS: LACTATED RINGERS 1,000 ML IV SCH ×5 (03:50→21:59)
[2019-02-04] MEDS: VANCOMYCIN 1,500 MG in SODIUM CHLORIDE 0.9% 250 ML IVPB SCH ×2 (05:04→21:59)
[2019-02-04 07:27] LABS: African American GFR (CKD) >90 (>60 ml/min/1.73 sqM); Anion Gap 7 mmol/L; Blood Urea Nitrogen 9 mg/dL (7-17); Calcium 7.6 mg/dL (8.4-10.2); Carbon Dioxide 26 mmol/L (22-30); Chloride 105 mmol/L (98-107); Glucose 79 mg/dL (74-99); Potassium 3.3 mmol/L (3.5-5.1); Sodium 138 mmol/L (137-145)
[2019-02-04] MEDS: LOSARTAN 25 MG TAB PO SCH ×2 (08:35→08:38)
[2019-02-04] MEDS: CARVEDILOL 6.25 MG TAB PO SCH ×2 (08:38→17:30)
[2019-02-04] MEDS: APIXABAN 5 MG TAB PO SCH ×2 (08:38→20:30)
[2019-02-04] MEDS: MAG HYDROX/AL HYDROX/SIMETH 30 ML, diphenhydrAMINE ELIXIR 75 MG, LIDOCAINE VISCOUS 30 ML PO SCH ×12 (08:38→21:54)
[2019-02-04] MEDS: ASPIRIN 81 MG PO SCH (08:38)
[2019-02-04] MEDS: PANTOPRAZOLE 40 MG TABLET PO SCH ×2 (08:38→20:30)
[2019-02-04] MEDS: LIDOCAINE 2% GEL 30 ML TUBE TOPICAL SCH ×2 (08:41→20:31)
[2019-02-04] MEDS: NYSTATIN 100,000 UNIT/GM POWD 15 GM TOPICAL SCH ×3 (08:42→20:31)
[2019-02-04] MEDS: FLUCONAZOLE 100 MG TAB PO SCH (08:44)
[2019-02-04] MEDS ORDERED: Potassium Replacement Protocol 1 EACH MISC MISCELLANE PRN (14:35)
[2019-02-04] MEDS: POTASSIUM CHLORIDE ER 20 MEQ TAB.ER PO SCH ×2 (15:08→17:30)
[2019-02-04] MEDS: ATORVASTATIN 40 MG TAB PO SCH (17:29)
[2019-02-04] MEDS: TEMAZEPAM 15 MG CAP PO PRN (20:30)
--- NOTE | 2019-02-04 23:17 | P.PN ---
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 Status post excision of the fistula, fistulectomy. After the surgery patient received chemoradiotherapy urinary this month for possible limited perineal lesion. She presents with nausea vomiting, fever of 102 and leukopenia less than 1000. Patient last time she had a fever on 01/29/2019 at 100.9. WBC came back to normal at 6.7. Hemoglobin 7.9 and platelets 84. Potassium 2.8 has been replaced. Creatinine 0.7 02/02/2019 Patient general weakness is improving. She is fully awake and oriented. Also perineal area infection and pain in the area is improving with broad-spectrum antibiotics. She is currently on cefepime, IV vancomycin and fluconazole. Vitals are stable. WBC is 10.2, hemoglobin improved to 8.5, platelet went up to 107. Creatinine is normal at 0.7. Potassium within normal limits today. Oncology team are following the case. Blood culture is positive for calculus negative staph. Infectious disease team R following the case closely. Continue with the Eliquis and parenteral hydration. Physical therapy recommended home health care which was ordered already. 02/03/2019 Patient is awake alert and oriented. Overall clinically improving. No compressive fever or chills. Patient is tolerating liquid diet. Patient does have generalized weakness and lack of appetite. No complaints of chest pain or shortness of breath. Patient is being continued on antibiotics in the form of vancomycin and cefepime. Also on Diflucan. Oncology and ID is following. Current medications reviewed. Objective - Vital Signs Vital signs: Vital Signs Temp 98.4 F 02/03/19 12:46 Pulse 72 02/03/19 12:46 Resp 16 02/03/19 12:46 BP 131/85 02/03/19 12:46 Pulse Ox 95 02/03/19 12:46 Intake & Output 02/03/19 02/03/19 02/04/19 06:59 18:59 06:59 Intake Total 1000 Balance 1000 Intake: Intake, IV Titration 1000 Amount Lactated Ringers 1,000 ml 1000 @ 125 mls/hr IV .Q8H [facility] Rx#:[id number] Other: Voiding Method Toilet # Voids 2 - Exam GENERAL: The patient is alert and oriented x3, not in any acute distress. Well developed, well nourished. HEENT: Pupils are round and equally reacting to light. EOMI. No scleral icterus. No conjunctival pallor. Normocephalic, atraumatic. No pharyngeal erythema. No thyromegaly. CARDIOVASCULAR: S1 and S2 present. No murmurs, rubs, or gallops. PULMONARY: Chest is clear to auscultation, no wheezing or crackles. -ABDOMEN: Soft, nontender, nondistended, normoactive bowel sounds. No palpable organomegaly. Rectal wound is healing with surrounding cellulitis. There is whole area of excoriated the skin with yellow discharge on the top of it around the anus with surrounding area of cellulitis. The area is red, hot and mildly tender MUSCULOSKELETAL: No joint swelling or deformity. EXTREMITIES: No cyanosis, clubbing, or pedal edema. NEUROLOGICAL: Gross neurological examination did not reveal any focal deficits. SKIN: No rashes. - Labs CBC & Chem 7: 02/02/19 08:10 02/04/19 06:25 Labs: Abnormal Lab Results - Last 24 Hours (Table) 02/03/19 Range/Units 06:26 Sodium 135 L (137-145) mmol/L Potassium 3.0 L (3.5-5.1) mmol/L Calcium 7.2 L (8.4-10.2) mg/dL Microbiology - Last 24 Hours (Table) 01/28/19 13:50 Blood Culture - Final Blood No Growth after 144 hours 01/31/19 18:30 Blood Culture - Preliminary Blood No Growth after 48 hours Assessment and Plan Assessment: Surgical site infection, with cellulitis Febrile neutropenia, mostly secondary to above Sepsis secondary to above with systemic inflammatory response with fever, which is enough to meet SIRS criteria any neutropenic patient Pancytopenia secondary to chemotherapy Recent history of rectal cancer with fistula status post fistulectomy. Squamous cell cancer. Status post chemoradiotherapy yearly on . Electrolyte abnormality, hypokalemia. Been replaced Plan: this is a pleasant 73 years old female who presents with sepsis at rectal surgical site infection with cellulitis. Patient has febrile neutropenia. Follow-up recommendation from infectious disease and oncology team. Continue with antibiotics as per infectious disease team recommendation. Labs and medication were reviewed.. Continue same treatment. Continue with symptomatic treatment. Resume home medication. Monitor lytes and vitals. DVT and GI prophylaxis. Further recommendations of the clinical course of the patient DVT prophylaxis: Eliquis GI Prophylaxis: Protonix Prognosis is guarded Time with Patient: Greater than 30
[2019-02-05] MEDS: CEFEPIME 2 GM in SODIUM CHLORIDE 0.9% 100 ML IVPB SCH ×2 (01:57→15:47)
[2019-02-05] MEDS: ACETAMINOPHEN TAB 325 MG TAB PO PRN (01:58)
[2019-02-05] MEDS: ASPIRIN 81 MG PO SCH (07:47)
[2019-02-05] MEDS: CARVEDILOL 6.25 MG TAB PO SCH ×2 (07:47→17:19)
[2019-02-05] MEDS: APIXABAN 5 MG TAB PO SCH ×2 (07:47→21:59)
[2019-02-05] MEDS: PANTOPRAZOLE 40 MG TABLET PO SCH ×2 (07:48→21:59)
[2019-02-05] MEDS: HYDROcodone/APAP 5-325MG 1 EACH TAB PO PRN ×2 (07:48→18:03)
[2019-02-05] MEDS: FLUCONAZOLE 100 MG TAB PO SCH (07:50)
[2019-02-05] MEDS: TRIAMCINOLONE ACET 0.1% OINTMENT 15 GM TUBE TOPICAL PRN (07:52)
[2019-02-05] MEDS: LIDOCAINE 2% GEL 30 ML TUBE TOPICAL SCH ×2 (07:52→22:00)
[2019-02-05] MEDS: NYSTATIN 100,000 UNIT/GM POWD 15 GM TOPICAL SCH ×3 (07:53→22:00)
--- NOTE | 2019-02-05 09:55 | P.PN ---
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 The patient blood culture has been finalized and staph epi likely contamination On today's evaluation that is 02/04/2019, the patient remains to be afebrile , the patient denies chest pain shortness of breath or cough no nausea no vomiting, pain in the perirectal as well as in the groin area has improved the patient did have mild diarrhea . Objective - Vital Signs Vital signs: Vital Signs Temp 97.9 F 02/04/19 11:39 Pulse 92 02/04/19 11:39 Resp 17 02/04/19 11:39 BP 185/78 02/04/19 11:39 Pulse Ox 96 02/04/19 11:39 Intake & Output 02/04/19 02/04/19 02/05/19 06:59 18:59 06:59 Other: Voiding Method Toilet Toilet # Voids 2 3 - Exam GENERAL DESCRIPTION:[ Patient is awake and alert in no distress] HEENT: [Oral mucosa is dry and no pharyngeal erythema] EYES : [No pallor or scleral icterus] RESPIRATORY SYSTEM: [Unlabored breathing clear to auscultation] CARDIA VASCULAR SYSTEM: [S1-S2 regular rate and rhythm no murmur] GI: [Abdominal soft there's no tenderness no organomegaly Bilateral groin area with superficial wound as well as the perirectal wound with minimal slough tissue but has improved from an admission] EXTREMITIES: [No edema feet] - Labs CBC & Chem 7: 02/02/19 08:10 02/04/19 06:25 Labs: Abnormal Lab Results - Last 24 Hours (Table) 02/04/19 Range/Units 06:25 Potassium 3.3 L (3.5-5.1) mmol/L Calcium 7.6 L (8.4-10.2) mg/dL Microbiology - Last 24 Hours (Table) 01/31/19 18:30 Blood Culture - Preliminary Blood No Growth after 72 hours 01/28/19 13:50 Blood Culture - Final Blood No Growth after 144 hours Assessment and Plan Assessment: 1-patient is a 73 -year-old female admitted hospital with sepsis in this patient who did have a fever tachycardia leukopenia/neutropenia in this patient with a 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 with underlying immunodeficiency possible source of this fever is the perirectal wound with secondary cellulitis , patient symptoms have shown clinical improvement 2-patient blood culture came positive with Staphylococcus epidermidis likely skin contamination follow-up blood culture has been negative (1) Sepsis Current Visit: Yes Status: Acute Code(s): A41.9 - SEPSIS, UNSPECIFIED ORGANISM SNOMED Code(s): 82882710 (2) Perirectal cellulitis Current Visit: Yes Status: Acute Code(s): K61.1 - RECTAL ABSCESS SNOMED Code(s): 738008 (3) Febrile neutropenia Current Visit: Yes Status: Acute Code(s): D70.9 - NEUTROPENIA, UNSPECIFIED; R50.81 - FEVER PRESENTING WITH CONDITIONS CLASSIFIED ELSEWHERE SNOMED Code(s): 703118475 Plan: 1--cefepime 2 g every 12 hours, with the patient presented with oral antibiotic and discontinue vancomycin 2-nystatin powder to bilateral groin wound area 3-patient to continue with local wound care as ordered Time with Patient: Less than 30
[2019-02-05] MEDS: NYSTATIN 100,000 UNIT/ML SUSP 500,000 UNIT/5 ML CUP PO SCH ×4 (11:52→22:01)
[2019-02-05 12:00] LABS: ALT 20 U/L (9-52); AST 21 U/L (14-36); African American GFR (CKD) >90 (>60 ml/min/1.73 sqM); Alkaline Phosphatase 141 U/L (38-126); Anion Gap 8 mmol/L; Blood Urea Nitrogen 8 mg/dL (7-17); Calcium 7.3 mg/dL (8.4-10.2); Carbon Dioxide 23 mmol/L (22-30); Chloride 105 mmol/L (98-107); Glucose 80 mg/dL (74-99); Potassium 3.3 mmol/L (3.5-5.1); Sodium 136 mmol/L (137-145); Total Bilirubin 0.3 mg/dL (0.2-1.3); Total Protein 4.3 g/dL (6.3-8.2)
[2019-02-05 12:03] LABS: Anisocytosis Slight; HCT 24.1 % (34.0-46.0); HGB 8.2 gm/dL (11.4-16.0); MCH 30.9 pg (25.0-35.0); MCV 91.1 fL (80.0-100.0); RBC 2.65 m/uL (3.80-5.40); RDW 18.4 % (11.5-15.5); WBC 7.5 k/uL (3.8-10.6)
[2019-02-05 12:09] LABS: Platelet Count 241 k/uL (150-450)
[2019-02-05] MEDS: LACTATED RINGERS 1,000 ML IV SCH ×2 (13:08→17:17)
[2019-02-05 13:21] LABS: Band Neutrophils % 1 %; Lymphocytes # (M) 0.23 k/uL (1.0-4.8); Metamyelocytes # (M) 0.08 k/uL (0); Metamyelocytes % 1 %; Monocytes # (M) 0.53 k/uL (0-1.0); Myelocytes # (M) 0.08 k/uL (0); Myelocytes % 1 %; Neutrophils % (M) 88 %; Nucleated Red Blood Cells 0 /100 WBC (0-0); Total Cells Counted 200
[2019-02-05 13:22] LABS: Polychromasia Present
[2019-02-05 13:23] LABS: Poikilocytosis (M) Present
--- NOTE | 2019-02-05 14:36 | P.PN ---
Subjective Progress Note Date: 02/05/19 Principal diagnosis: Neutropenic typhilitis, mucositis and nausea with resultant dehydration Today pt states mild improvement in oral irritation, no fevers, nausea or vomiting, cough, the abd pain is much less, she tolerated a regular diet last night and this AM without GI side effects. Her rectal pain is much improved as well, still has occasional fecal incontinence. Objective - Vital Signs Vital signs: Vital Signs Temp 97.7 F 02/05/19 13:00 Pulse 79 02/05/19 13:00 Resp 18 02/05/19 13:00 BP 132/85 02/05/19 13:00 Pulse Ox 96 02/05/19 13:00 Intake & Output 02/04/19 02/05/19 02/05/19 18:59 06:59 18:59 Intake Total 1500 120 Balance 1500 120 Weight 85.275 kg Intake: Intake, IV Titration 550 Amount Cefepime 2 gm In Sodium 100 Chloride 0.9% 100 ml @ 200 mls/hr IVPB Q12H [facility] Rx#:[id number] Lactated Ringers 1,000 ml 200 @ 125 mls/hr IV .Q8H [facility] Rx#:[id number] Vancomycin 1,500 mg In 250 Sodium Chloride 0.9% 250 ml @ 125 mls/hr IVPB Q16H [facility] Rx#:[id number] Oral 950 120 Other: Voiding Method Toilet Toilet Toilet # Voids 3 1 1 # Bowel Movements 3 3 - Constitutional General appearance: Present: cooperative, no acute distress, obese - EENT EENT Comment(s): generalized oral redness, thin layer of slough, mild thrush Eyes: Present: anicteric sclerae, EOMI - Respiratory Respiratory: bilateral: CTA - Cardiovascular Rhythm: regular Heart sounds: normal: S1, S2 Abnormal Heart Sounds: Absent: systolic murmur, diastolic murmur, rub, S3 Gallop, S4 Gallop, click, other - Peripheral edema leg Peripheral Edema: bilateral: 2+, Pitting - Gastrointestinal Gastrointestinal Comment(s): no rebound tenderness in the lower quadrants General gastrointestinal: Present: normal bowel sounds, soft. Absent: absent bowel sounds, decreased bowel sounds, distended, hepatomegaly, hyperactive bowel sounds, organomegaly, rigid, scaphoid, splenomegaly, tenderness, umbilical hernia, ventral hernia - Integumentary Integumentary: Present: normal turgor, pale - Neurologic Neurologic: Present: CNII-XII intact - Musculoskeletal Musculoskeletal: Present: generalized weakness, strength equal bilaterally - Psychiatric Psychiatric: Present: A&O x's 3, appropriate affect, intact judgment & insight - Labs CBC & Chem 7: 02/05/19 11:07 02/05/19 11:07 Labs: Abnormal Lab Results - Last 24 Hours (Table) 02/05/19 02/05/19 Range/Units 11:07 11:07 RBC 2.65 L (3.80-5.40) m/uL Hgb 8.2 L (11.4-16.0) gm/dL Hct 24.1 L (34.0-46.0) % RDW 18.4 H (11.5-15.5) % Lymphocytes # (Manual) 0.23 L (1.0-4.8) k/uL Metamyelocytes # (Man) 0.08 H (0) k/uL Myelocytes # (Manual) 0.08 H (0) k/uL Sodium 136 L (137-145) mmol/L Potassium 3.3 L (3.5-5.1) mmol/L Calcium 7.3 L (8.4-10.2) mg/dL Alkaline Phosphatase 141 H (38-126) U/L Total Protein 4.3 L (6.3-8.2) g/dL Albumin 2.0 L (3.5-5.0) g/dL Microbiology - Last 24 Hours (Table) 01/31/19 18:30 Blood Culture - Preliminary Blood No Growth after 96 hours Assessment and Plan (1) Neutropenic typhlitis Narrative/Plan: WBC/ANC recovered, no abd pain, tolerating regular diet Current Visit: Yes Status: Resolved Priority: High Code(s): K36 - OTHER APPENDICITIS SNOMED Code(s): 7553233 (2) Pancytopenia due to antineoplastic chemotherapy Narrative/Plan: S/P 1 unit PRBCs, Hgb stable Plt and WBCs improving spontaneously Current Visit: Yes Status: Acute Priority: Medium Code(s): D61.810 - ANTINEOPLASTIC CHEMOTHERAPY INDUCED PANCYTOPENIA; T45.1X5A - ADVERSE EFFECT OF ANTINEOPLASTIC AND IMMUNOSUP DRUGS, INIT SNOMED Code(s): 921909652313976 (3) Febrile neutropenia Current Visit: Yes Status: Resolved Priority: High Code(s): D70.9 - NEUTR OPENIA, UNSPECIFIED; R50.81 - FEVER PRESENTING WITH CONDITIONS CLASSIFIED ELSEWHERE SNOMED Code(s): 816895885 (4) Dehydration Narrative/Plan: Improved with resolution of chemo side effects Current Visit: Yes Status: Acute Priority: High Code(s): E86.0 - DEHYDRATION SNOMED Code(s): 57396143 (5) History of squamous cell carcinoma Narrative/Plan: Rectal area, s/p treatment. Perineal skin is slowly healing, mild stool incontinence persists. Current Visit: Yes Status: Acute Priority: Medium Code(s): Z85.89 - PERSONAL HISTORY OF MALIGNANT NEOPLASM OF ORGANS AND SYSTEMS SNOMED Code(s): 14068813136292
[2019-02-05] MEDS ORDERED: Potassium Replacement Protocol 1 EACH MISC MISCELLANE PRN (17:18)
[2019-02-05] MEDS: POTASSIUM CHLORIDE ER 20 MEQ TAB.ER PO SCH ×4 (19:32→23:48)
[2019-02-05] MEDS: TEMAZEPAM 15 MG CAP PO PRN (21:59)
--- NOTE | 2019-02-05 23:03 | P.PN ---
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 The patient blood culture has been finalized and staph epi likely contamination On today's evaluation that is 02/05/2019, the patient denies any fever or chills, the patient denies chest pain shortness of breath or cough no nausea no vomiting, pain in the perirectal as well as in the groin area has improved the patient denies any worsening diarrhea . Objective - Vital Signs Vital signs: Vital Signs Temp 98.0 F 02/05/19 05:00 Pulse 75 02/05/19 05:00 Resp 16 02/05/19 07:30 BP 143/68 02/05/19 05:00 Pulse Ox 97 02/05/19 05:00 Intake & Output 02/04/19 02/05/19 02/05/19 18:59 06:59 18:59 Intake Total 1500 120 Balance 1500 120 Intake: Intake, IV Titration 550 Amount Cefepime 2 gm In Sodium 100 Chloride 0.9% 100 ml @ 200 mls/hr IVPB Q12H [facility] Rx#:[id number] Lactated Ringers 1,000 ml 200 @ 125 mls/hr IV .Q8H [facility] Rx#:[id number] Vancomycin 1,500 mg In 250 Sodium Chloride 0.9% 250 ml @ 125 mls/hr IVPB Q16H [facility] Rx#:[id number] Oral 950 120 Other: Voiding Method Toilet Toilet Toilet # Voids 3 1 1 # Bowel Movements 3 3 - Exam GENERAL DESCRIPTION:[ Patient is awake and alert in no distress] HEENT: [Oral mucosa is dry and no pharyngeal erythema] EYES : [No pallor or scleral icterus] RESPIRATORY SYSTEM: [Unlabored breathing clear to auscultation] CARDIA VASCULAR SYSTEM: [S1-S2 regular rate and rhythm no murmur] GI: [Abdominal soft there's no tenderness no organomegaly Bilateral groin area with superficial wound as well as the perirectal wound with minimal slough tissue but has improved from an admission] EXTREMITIES: [No edema feet] - Labs CBC & Chem 7: 02/05/19 11:07 02/05/19 21:56 Labs: Microbiology - Last 24 Hours (Table) 01/31/19 18:30 Blood Culture - Preliminary Blood No Growth after 96 hours Assessment and Plan Assessment: 1-patient is a 73 -year-old female admitted hospital with sepsis in this patient who did have a fever tachycardia leukopenia/neutropenia in this patient with a 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 with underlying immunodeficiency possible source of this fever is the perirectal wound with secondary cellulitis , patient symptoms have shown clinical improvement 2-patient blood culture came positive with Staphylococcus epidermidis likely skin contamination follow-up blood culture has been negative (1) Sepsis Current Visit: Yes Status: Acute Code(s): A41.9 - SEPSIS, UNSPECIFIED ORGANISM SNOMED Code(s): 65772229 (2) Perirectal cellulitis Current Visit: Yes Status: Acute Code(s): K61.1 - RECTAL ABSCESS SNOMED Code(s): 352381 (3) Febrile neutropenia Current Visit: Yes Status: Resolved Priority: High Code(s): D70.9 - NEUTROPENIA, UNSPECIFIED; R50.81 - FEVER PRESENTING WITH CONDITIONS CLASSIFIED ELSEWHERE SNOMED Code(s): 455579012 Plan: 1--cefepime 2 g every 12 hours, with the plan to finish therapy with oral antibiotic on discharge 2-nystatin powder to bilateral groin wound area 3-patient to continue with local wound care as ordered Time with Patient: Less than 30
--- NOTE | 2019-02-05 23:07 | P.PN ---
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 The patient blood culture with gram-positive cocci ID and sensitivities pending On today's evaluation that is 02/02/2019, the patient fever pattern has improved, the patient denies chest pain shortness of breath or cough no nausea no vomiting, pain in the perirectal as well as in the groin area has improved the patient denies any worsening diarrhea . Objective - Vital Signs Vital signs: Vital Signs Temp 98.5 F 02/02/19 05:00 Pulse 80 02/02/19 05:00 Resp 18 02/02/19 05:00 BP 119/70 02/02/19 05:00 Pulse Ox 96 02/02/19 05:00 Intake & Output 02/01/19 02/02/19 02/02/19 18:59 06:59 18:59 Intake Total 900 Balance 900 Intake: Intake, IV Titration 900 Amount Cefepime 2 gm In Sodium 200 Chloride 0.9% 100 ml @ 200 mls/hr IVPB Q12H [facility] Rx#:[id number] Lactated Ringers 1,000 ml 500 @ 125 mls/hr IV .Q8H [facility] Rx#:[id number] Potassium Chloride 20 meq 200 In Water For Injection 1 100ml.bag @ 50 mls/hr IVPB Q2H [facility] Rx#: [id number] Other: Voiding Method Toilet Toilet # Voids 3 - Exam GENERAL DESCRIPTION:[ Patient is awake and alert in no distress] HEENT: [Oral mucosa is dry and no pharyngeal erythema] EYES : [No pallor or scleral icterus] RESPIRATORY SYSTEM: [Unlabored breathing clear to auscultation] CARDIA VASCULAR SYSTEM: [S1-S2 regular rate and rhythm no murmur] GI: [Abdominal soft there's no tenderness no organomegaly Bilateral groin area with superficial wound as well as the perirectal wound with minimal slough tissue EXTREMITIES: [No edema feet] - Labs CBC & Chem 7: 02/05/19 11:07 02/05/19 21:56 Labs: Abnormal Lab Results - Last 24 Hours (Table) 02/01/19 02/02/19 02/02/19 Range/Units 18:55 08:10 08:10 RBC 2.80 L (3.80-5.40) m/uL Hgb 8.5 L (11.4-16.0) gm/dL Hct 25.8 L (34.0-46.0) % RDW 18.4 H (11.5-15.5) % Plt Count 107 L (150-450) k/uL Sodium 136 L (137-145) mmol/L Potassium 3.4 L (3.5-5.1) mmol/L Glucose 69 L (74-99) mg/dL Calcium 7.2 L (8.4-10.2) mg/dL Alkaline Phosphatase 188 H (38-126) U/L Total Protein 4.3 L (6.3-8.2) g/dL Albumin 2.0 L (3.5-5.0) g/dL Microbiology - Last 24 Hours (Table) 01/28/19 12:20 Blood Culture Gram Stain - Final Blood Blood Culture - Final Coagulase Negative Staph 01/31/19 18:30 Blood Culture - Preliminary Blood No Growth after 24 hours 01/28/19 13:50 Blood Culture - Preliminary Blood No Growth after 96 hours Assessment and Plan Assessment: 1-patient is a 73 -year-old female admitted hospital with sepsis in this patient who did have a fever tachycardia leukopenia/neutropenia in this patient with a 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 with underlying immunodeficiency possible source of this fever is the perirectal wound with secondary cellulitis , 2-patient blood culture came positive with gram-positive cocci and waiting ID and sensitivity (1) Sepsis Current Visit: Yes Status: Acute Code(s): A41.9 - SEPSIS, UNSPECIFIED ORGANISM SNOMED Code(s): 74065784 (2) Perirectal cellulitis Current Visit: Yes Status: Acute Code(s): K61.1 - RECTAL ABSCESS SNOMED Code(s): 567341 (3) Febrile neutropenia Current Visit: Yes Status: Resolved Priority: High Code(s): D70.9 - NEUTROPENIA, UNSPECIFIED; R50.81 - FEVER PRESENTING WITH CONDITIONS CLASSIFIED ELSEWHERE SNOMED Code(s): 443746504 Plan: 1--cefepime 2 g every 8 hours 2-vancomycin pharmacy to dose while watching her kidney function Vanco trough closely 3-nystatin powder to bilateral groin wound area
--- NOTE | 2019-02-06 00:30 | P.PN ---
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 Status post excision of the fistula, fistulectomy. After the surgery patient received chemoradiotherapy urinary this month for possible limited perineal lesion. She presents with nausea vomiting, fever of 102 and leukopenia less than 1000. Patient last time she had a fever on 01/29/2019 at 100.9. WBC came back to normal at 6.7. Hemoglobin 7.9 and platelets 84. Potassium 2.8 has been replaced. Creatinine 0.7 02/02/2019 Patient general weakness is improving. She is fully awake and oriented. Also perineal area infection and pain in the area is improving with broad-spectrum antibiotics. She is currently on cefepime, IV vancomycin and fluconazole. Vitals are stable. WBC is 10.2, hemoglobin improved to 8.5, platelet went up to 107. Creatinine is normal at 0.7. Potassium within normal limits today. Oncology team are following the case. Blood culture is positive for calculus negative staph. Infectious disease team R following the case closely. Continue with the Eliquis and parenteral hydration. Physical therapy recommended home health care which was ordered already. 02/03/2019 Patient is awake alert and oriented. Overall clinically improving. No compressive fever or chills. Patient is tolerating liquid diet. Patient does have generalized weakness and lack of appetite. No complaints of chest pain or shortness of breath. Patient is being continued on antibiotics in the form of vancomycin and cefepime. Also on Diflucan. Oncology and ID is following. 02/04/2090 Patient denied any complains of chest pain or shortness of breath. Complains of pain over the rectal area. Patient is being continued on antibiotics in the form of cefepime. Vancomycin has been discontinued. ID is following. Otherwise patient wants to advance her diet and continue with soft diet. Oncology is following. Final ID recommendations Current medications reviewed. Objective - Vital Signs Vital signs: Vital Signs Temp 98.1 F 02/04/19 21:00 Pulse 87 02/04/19 21:00 Resp 16 02/04/19 22:09 BP 140/69 02/04/19 21:00 Pulse Ox 97 02/04/19 21:00 Intake & Output 02/04/19 02/04/19 02/05/19 06:59 18:59 06:59 Intake Total 440 Balance 440 Intake: Intake, IV Titration 200 Amount Lactated Ringers 1,000 ml 200 @ 125 mls/hr IV .Q8H [facility] Rx#:[id number] Oral 240 Other: Voiding Method Toilet Toilet Toilet # Voids 2 3 1 # Bowel Movements 1 - Exam GENERAL: The patient is alert and oriented x3, not in any acute distress. Well developed, well nourished. HEENT: Pupils are round and equally reacting to light. EOMI. No scleral icterus. No conjunctival pallor. Normocephalic, atraumatic. No pharyngeal erythema. No thyromegaly. CARDIOVASCULAR: S1 and S2 present. No murmurs, rubs, or gallops. PULMONARY: Chest is clear to auscultation, no wheezing or crackles. -ABDOMEN: Soft, nontender, nondistended, normoactive bowel sounds. No palpable organomegaly. Rectal wound is healing with surrounding cellulitis. There is whole area of excoriated the skin with yellow discharge on the top of it around the anus with surrounding area of cellulitis. The area is red, hot and mildly tender MUSCULOSKELETAL: No joint swelling or deformity. EXTREMITIES: No cyanosis, clubbing, or pedal edema. NEUROLOGICAL: Gross neurological examination did not reveal any focal deficits. SKIN: No rashes. - Labs CBC & Chem 7: 02/05/19 11:07 02/05/19 21:56 Labs: Abnormal Lab Results - Last 24 Hours (Table) 02/04/19 Range/Units 06:25 Potassium 3.3 L (3.5-5.1) mmol/L Calcium 7.6 L (8.4-10.2) mg/dL Microbiology - Last 24 Hours (Table) 01/31/19 18:30 Blood Culture - Preliminary Blood No Growth after 96 hours Assessment and Plan Assessment: Surgical site infection, with cellulitis Febrile neutropenia, mostly secondary to above Sepsis secondary to above with systemic inflammatory response with fever, which is enough to meet SIRS criteria any neutropenic patient Pancytopenia secondary to chemotherapy Recent history of rectal cancer with fistula status post fistulectomy. Squamous cell cancer. Status post chemoradiotherapy yearly on . Electrolyte abnormality, hypokalemia. Been replaced Plan: this is a pleasant 73 years old female who presents with sepsis at rectal surgical site infection with cellulitis. Patient has febrile neutropenia. Follow-up recommendation from infectious disease and oncology team. Continue with antibiotics as per infectious disease team recommendation. Labs and medication were reviewed.. Continue same treatment. Continue with symptomatic treatment. Resume home medication. Monitor lytes and vitals. DVT and GI prophylaxis. Further recommendations of the clinical course of the patient DVT prophylaxis: Eliquis GI Prophylaxis: Protonix Prognosis is guarded Time with Patient: Greater than 30
--- NOTE | 2019-02-06 00:33 | P.PN ---
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 Status post excision of the fistula, fistulectomy. After the surgery patient received chemoradiotherapy urinary this month for possible limited perineal lesion. She presents with nausea vomiting, fever of 102 and leukopenia less than 1000. Patient last time she had a fever on 01/29/2019 at 100.9. WBC came back to normal at 6.7. Hemoglobin 7.9 and platelets 84. Potassium 2.8 has been replaced. Creatinine 0.7 02/02/2019 Patient general weakness is improving. She is fully awake and oriented. Also perineal area infection and pain in the area is improving with broad-spectrum antibiotics. She is currently on cefepime, IV vancomycin and fluconazole. Vitals are stable. WBC is 10.2, hemoglobin improved to 8.5, platelet went up to 107. Creatinine is normal at 0.7. Potassium within normal limits today. Oncology team are following the case. Blood culture is positive for calculus negative staph. Infectious disease team R following the case closely. Continue with the Eliquis and parenteral hydration. Physical therapy recommended home health care which was ordered already. 02/03/2019 Patient is awake alert and oriented. Overall clinically improving. No compressive fever or chills. Patient is tolerating liquid diet. Patient does have generalized weakness and lack of appetite. No complaints of chest pain or shortness of breath. Patient is being continued on antibiotics in the form of vancomycin and cefepime. Also on Diflucan. Oncology and ID is following. 02/04/2090 Patient denied any complains of chest pain or shortness of breath. Complains of pain over the rectal area. Patient is being continued on antibiotics in the form of cefepime. Vancomycin has been discontinued. ID is following. Otherwise patient wants to advance her diet and continue with soft diet. Oncology is following. Final ID recommendations. 02/05/2019 Patient denied any complaints of fever or chills. Continued on antibiotics in the form of cefepime for rectal surgical site cellulitis. Cultures have been negative so far. ID and oncology is following. Patient is tolerating regular diet but she is having decreased appetite and is also concerned about still consistency and rectal pain. Nutrition consult service is following. Anticipate discharge home in next 24 hours with final ID recommendations. Hemoglobin 8.2, WBC 7.5 and platelets 241 Current medications reviewed. Objective - Vital Signs Vital signs: Vital Signs Temp 98.5 F 02/05/19 20:45 Pulse 71 02/05/19 22:17 Resp 16 02/05/19 22:17 BP 137/84 02/05/19 20:45 Pulse Ox 94 L 02/05/19 20:45 Intake & Output 02/05/19 02/05/19 02/06/19 06:59 18:59 06:59 Intake Total 1500 720 590 Balance 1500 720 590 Weight 85.275 kg Intake: Intake, IV Titration 550 350 Amount Cefepime 2 gm In Sodium 100 100 Chloride 0.9% 100 ml @ 200 mls/hr IVPB Q12H [facility] Rx#:[id number] Lactated Ringers 1,000 ml 200 @ 125 mls/hr IV .Q8H [facility] Rx#:[id number] Vancomycin 1,500 mg In 250 250 Sodium Chloride 0.9% 250 ml @ 125 mls/hr IVPB Q16H [facility] Rx#:[id number] Oral 950 370 590 Other: Voiding Method Toilet Toilet Toilet # Voids 1 1 1 # Bowel Movements 3 1 - Exam GENERAL: The patient is alert and oriented x3, not in any acute distress. Well developed, well nourished. HEENT: Pupils are round and equally reacting to light. EOMI. No scleral icterus. No conjunctival pallor. Normocephalic, atraumatic. No pharyngeal erythema. No thyromegaly. CARDIOVASCULAR: S1 and S2 present. No murmurs, rubs, or gallops. PULMONARY: Chest is clear to auscultation, no wheezing or crackles. -ABDOMEN: Soft, nontender, nondistended, normoactive bowel sounds. No palpable organomegaly. Rectal wound is healing with surrounding cellulitis. There is whole area of excoriated the skin with yellow discharge on the top of it around the anus with surrounding area of cellulitis. The area is red, hot and mildly tender MUSCULOSKELETAL: No joint swelling or deformity. EXTREMITIES: No cyanosis, clubbing, or pedal edema. NEUROLOGICAL: Gross neurological examination did not reveal any focal deficits. SKIN: No rashes. - Labs CBC & Chem 7: 02/05/19 11:07 02/05/19 21:56 Labs: Abnormal Lab Results - Last 24 Hours (Table) 02/05/19 02/05/19 Range/Units 11:07 11:07 RBC 2.65 L (3.80-5.40) m/uL Hgb 8.2 L (11.4-16.0) gm/dL Hct 24.1 L (34.0-46.0) % RDW 18.4 H (11.5-15.5) % Lymphocytes # (Manual) 0.23 L (1.0-4.8) k/uL Metamyelocytes # (Man) 0.08 H (0) k/uL Myelocytes # (Manual) 0.08 H (0) k/uL Sodium 136 L (137-145) mmol/L Potassium 3.3 L (3.5-5.1) mmol/L Calcium 7.3 L (8.4-10.2) mg/dL Alkaline Phosphatase 141 H (38-126) U/L Total Protein 4.3 L (6.3-8.2) g/dL Albumin 2.0 L (3.5-5.0) g/dL Microbiology - Last 24 Hours (Table) 01/31/19 18:30 Blood Culture - Preliminary Blood No Growth after 120 hours Assessment and Plan Assessment: Surgical site infection, with cellulitis Febrile neutropenia, mostly secondary to above Sepsis secondary to above with systemic inflammatory response with fever, which is enough to meet SIRS criteria any neutropenic patient Pancytopenia secondary to chemotherapy Recent history of rectal cancer with fistula status post fistulectomy. Squamous cell cancer. Status post chemoradiotherapy yearly on . Electrolyte abnormality, hypokalemia. Been replaced Plan: this is a pleasant 73 years old female who presents with sepsis at rectal surgical site infection with cellulitis. Patient has febrile neutropenia. Fol low-up recommendation from infectious disease and oncology team. Continue with antibiotics as per infectious disease team recommendation. Labs and medication were reviewed.. Continue same treatment. Continue with symptomatic treatment. Resume home medication. Monitor lytes and vitals. DVT and GI prophylaxis. Further recommendations of the clinical course of the patient DVT prophylaxis: Eliquis GI Prophylaxis: Protonix Prognosis is guarded Time with Patient: Greater than 30
[2019-02-06] MEDS: CEFEPIME 2 GM in SODIUM CHLORIDE 0.9% 100 ML IVPB SCH ×2 (01:41→14:49)
[2019-02-06] MEDS: ACETAMINOPHEN TAB 325 MG TAB PO PRN (03:34)
[2019-02-06 05:15] VITALS: TEMP 98.3
[2019-02-06] MEDS: LOSARTAN 25 MG TAB PO SCH (08:21)
[2019-02-06] MEDS: FLUCONAZOLE 100 MG TAB PO SCH (08:21)
[2019-02-06] MEDS: PANTOPRAZOLE 40 MG TABLET PO SCH (08:22)
[2019-02-06] MEDS: ASPIRIN 81 MG PO SCH (08:22)
[2019-02-06] MEDS: CARVEDILOL 6.25 MG TAB PO SCH ×2 (08:22→16:35)
[2019-02-06] MEDS: LIDOCAINE 2% GEL 30 ML TUBE TOPICAL SCH (08:22)
[2019-02-06] MEDS: NYSTATIN 100,000 UNIT/GM POWD 15 GM TOPICAL SCH (08:22)
[2019-02-06] MEDS: NYSTATIN 100,000 UNIT/ML SUSP 500,000 UNIT/5 ML CUP PO SCH ×3 (08:22→16:35)
[2019-02-06] MEDS: APIXABAN 5 MG TAB PO SCH (08:22)
[2019-02-06 10:28] LABS: Anisocytosis Slight; HCT 25.5 % (34.0-46.0); HGB 8.4 gm/dL (11.4-16.0); MCH 30.4 pg (25.0-35.0); MCV 92.3 fL (80.0-100.0); Macrocytosis Slight; Mean Platelet Volume 7.6; Platelet Count 260 k/uL (150-450); RBC 2.76 m/uL (3.80-5.40); RDW 19.2 % (11.5-15.5); WBC 7.3 k/uL (3.8-10.6)
[2019-02-06 10:40] LABS: ALT 22 U/L (9-52); AST 20 U/L (14-36); African American GFR (CKD) >90 (>60 ml/min/1.73 sqM); Albumin 2.1 g/dL (3.5-5.0); Alkaline Phosphatase 132 U/L (38-126); Anion Gap 4 mmol/L; Blood Urea Nitrogen 7 mg/dL (7-17); Calcium 7.6 mg/dL (8.4-10.2); Carbon Dioxide 29 mmol/L (22-30); Chloride 105 mmol/L (98-107); Glucose 87 mg/dL (74-99); Potassium 3.6 mmol/L (3.5-5.1); Sodium 138 mmol/L (137-145); Total Bilirubin 0.3 mg/dL (0.2-1.3); Total Protein 4.5 g/dL (6.3-8.2)
[2019-02-06 11:38] VITALS: BP 139/71; PULSE 76; RESP 17
--- NOTE | 2019-02-06 11:42 | P.PN ---
Subjective Progress Note Date: 02/06/19 Principal diagnosis: Neutropenic typhilitis, mucositis and nausea with resultant dehydration Today pt states further improvement in oral irritation-she can tolerate the cools without the lidocaine, no fevers, nausea or vomiting, cough, no abd pain, she tolerated a regular diet last night and this AM without GI side effects. Topical treatment of rectal pain is helping and tolerable, still has stool that is liquid and occasional fecal incontinence. She was up independently, in shower and walking around room without difficulty Objective - Vital Signs Vital signs: Vital Signs Temp 98.3 F 02/06/19 05:00 Pulse 86 02/06/19 05:00 Resp 16 02/06/19 07:15 BP 163/87 02/06/19 05:00 Pulse Ox 99 02/06/19 05:00 Intake & Output 02/05/19 02/06/19 02/06/19 18:59 06:59 18:59 Intake Total 720 2230 Balance 720 2230 Weight 85.275 kg Intake: Intake, IV Titration 350 100 Amount Cefepime 2 gm In Sodium 100 100 Chloride 0.9% 100 ml @ 200 mls/hr IVPB Q12H [facility] Rx#:[id number] Vancomycin 1,500 mg In 250 Sodium Chloride 0.9% 250 ml @ 125 mls/hr IVPB Q16H [facility] Rx#:[id number] Oral 370 2130 Other: Voiding Method Toilet Toilet Toilet # Voids 1 3 # Bowel Movements 1 - Constitutional General appearance: Present: cooperative, no acute distress, obese - EENT EENT Comment(s): mild symptoms of mucositis on the tongue Eyes: Present: anicteric sclerae, EOMI ENT: Present: hearing grossly normal - Respiratory Respiratory: bilateral: CTA - Cardiovascular Rhythm: regular Heart sounds: normal: S1, S2 Abnormal Heart Sounds: Absent: systolic murmur, diastolic murmur, rub, S3 Gallop, S4 Gallop, click, other - Peripheral edema leg Peripheral Edema: bilateral: Trace - Gastrointestinal General gastrointestinal: Present: normal bowel sounds, soft. Absent: absent bowel sounds, decreased bowel sounds, distended, hepatomegaly, hyperactive bowel sounds, organomegaly, rigid, scaphoid, splenomegaly, tenderness, umbilical hernia, ventral hernia - Neurologic Neurologic: Present: CNII-XII intact - Musculoskeletal Musculoskeletal: Present: strength equal bilaterally - Psychiatric Psychiatric: Present: A&O x's 3, appropriate affect, intact judgment & insight - Labs CBC & Chem 7: 02/06/19 09:08 02/06/19 09:08 Labs: Abnormal Lab Results - Last 24 Hours (Table) 02/05/19 02/05/19 02/06/19 Range/Units 11:07 11:07 09:08 RBC 2.65 L 2.76 L (3.80-5.40) m/uL Hgb 8.2 L 8.4 L (11.4-16.0) gm/dL Hct 24.1 L 25.5 L (34.0-46.0) % RDW 18.4 H 19.2 H (11.5-15.5) % Lymphocytes # (Manual) 0.23 L (1.0-4.8) k/uL Metamyelocytes # (Man) 0.08 H (0) k/uL Myelocytes # (Manual) 0.08 H (0) k/uL Sodium 136 L (137-145) mmol/L Potassium 3.3 L (3.5-5.1) mmol/L Calcium 7.3 L (8.4-10.2) mg/dL Alkaline Phosphatase 141 H (38-126) U/L Total Protein 4.3 L (6.3-8.2) g/dL Albumin 2.0 L (3.5-5.0) g/dL 02/06/19 Range/Units 09:08 RBC (3.80-5.40) m/uL Hgb (11.4-16.0) gm/dL Hct (34.0-46.0) % RDW (11.5-15.5) % Lymphocytes # (Manual) (1.0-4.8) k/uL Metamyelocytes # (Man) (0) k/uL Myelocytes # (Manual) (0) k/uL Sodium (137-145) mmol/L Potassium (3.5-5.1) mmol/L Calcium 7.6 L (8.4-10.2) mg/dL Alkaline Phosphatase 132 H (38-126) U/L Total Protein 4.5 L (6.3-8.2) g/dL Albumin 2.1 L (3.5-5.0) g/dL Microbiology - Last 24 Hours (Table) 01/31/19 18:30 Blood Culture - Preliminary Blood No Growth after 120 hours Assessment and Plan (1) Neutropenic typhlitis Current Visit: Yes Status: Resolved Priority: High Code(s): K36 - OTHER APPENDICITIS SNOMED Code(s): 4189850 (2) Pancytopenia due to antineoplastic chemotherapy Narrative/Plan: CBC stable, improved. Pt has completed chemotherapy Current Visit: Yes Status: Acute Priority: Medium Code(s): D61.810 - ANT INEOPLASTIC CHEMOTHERAPY INDUCED PANCYTOPENIA; T45.1X5A - ADVERSE EFFECT OF ANTINEOPLASTIC AND IMMUNOSUP DRUGS, INIT SNOMED Code(s): 648422799583107 (3) Febrile neutropenia Current Visit: Yes Status: Resolved Priority: High Code(s): D70.9 - NEUTROPENIA, UNSPECIFIED; R50.81 - FEVER PRESENTING WITH CONDITIONS CLASSIFIED ELSEWHERE SNOMED Code(s): 687125191 (4) Dehydration Current Visit: Yes Status: Resolved Priority: High Code(s): E86.0 - DEHYDRATION SNOMED Code(s): 72653442 (5) History of squamous cell carcinoma Narrative/Plan: Rectal area, s/p treatment. Perineal skin is slowly healing, mild stool incontinence persists. Follow up appt planned Current Visit: Yes Status: Acute Priority: Medium Code(s): Z85.89 - P ERSONAL HISTORY OF MALIGNANT NEOPLASM OF ORGANS AND SYSTEMS SNOMED Code(s): 44481521624272
[2019-02-06 12:03] LABS: Band Neutrophils % 6 %; Lymphocytes # (M) 0.22 k/uL (1.0-4.8); Metamyelocytes # (M) 0.22 k/uL (0); Metamyelocytes % 3 %; Monocytes # (M) 0.44 k/uL (0-1.0); Myelocytes # (M) 0.07 k/uL (0); Myelocytes % 1 %; Neutrophils % (M) 83 %; Nucleated Red Blood Cells 0 /100 WBC (0-0); Total Cells Counted 200
[2019-02-06] MEDS: HYDROcodone/APAP 5-325MG 1 EACH TAB PO PRN (16:44)
--- NOTE | 2019-02-07 00:37 | P.DS ---
Providers Date of admission: 01/27/19 15:07 Expected date of discharge: 02/06/19 Attending physician: Alejo Hanna Consults: 01/27/19 15:19 Consult Physician Routine Consulting Provider: Mich Aguilera Consult Reason/Comments: established patient, nausea from chemo Do you want consulting provider notified?: Yes 01/28/19 15:51 Consult Physician Routine Consulting Provider: Franklin Gan Consult Reason/Comments: Febrile neutropenia Do you want consulting provider notified?: Yes Primary care physician: Damien Donahue Hospital Course: Discharge diagnosis Surgical site infection, with cellulitis Febrile neutropenia, mostly secondary to above Sepsis secondary to above with systemic inflammatory response with fever, which is enough to meet SIRS criteria any neutropenic patient Pancytopenia secondary to chemotherapy Recent history of rectal cancer with fistula status post fistulectomy. Squamous cell cancer. Status post chemoradiotherapy yearly on . Electrolyte abnormality, hypokalemia. 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 Status post excision of the fistula, fistulectomy. After the surgery patient received chemoradiotherapy urinary this month for possible limited perineal lesion. She presents with nausea vomiting, fever of 102 and leukopenia less than 1000. Patient last time she had a fever on 01/29/2019 at 100.9. WBC came back to normal at 6.7. Hemoglobin 7.9 and plat elets 84. Potassium 2.8 has been replaced. Creatinine 0.7 02/02/2019 Patient general weakness is improving. She is fully awake and oriented. Also perineal area infection and pain in the area is improving with broad-spectrum antibiotics. She is currently on cefepime, IV vancomycin and fluconazole. Vitals are stable. WBC is 10.2, hemoglobin improved to 8.5, platelet went up to 107. Creatinine is normal at 0.7. Potassium within normal limits today. Oncology team are following the case. Blood culture is positive for calculus negative staph. Infectious disease team R following the case closely. Continue with the Eliquis and parenteral hydration. Physical therapy recommended home health care which was ordered already. 02/03/2019 Patient is awake alert and oriented. Overall clinically improving. No compressive fever or chills. Patient is tolerating liquid diet. Patient does have generalized weakness and lack of appetite. No complaints of chest pain or shortness of breath. Patient is being continued on antibiotics in the form of vancomycin and cefepime. Also on Diflucan. Oncology and ID is following. 02/04/2090 Patient denied any complains of chest pain or shortness of breath. Complains of pain over the rectal area. Patient is being continued on antibiotics in the form of cefepime. Vancomycin has been discontinued. ID is following. Otherwise patient wants to advance her diet and continue with soft diet. Oncology is following. Final ID recommendations. 02/05/2019 Patient denied any complaints of fever or chills. Continued on antibiotics in the form of cefepime for rectal surgical site cellulitis. Cultures have been negative so far. ID and oncology is following. Patient is tolerating regular diet but she is having decreased appetite and is also concerned about still consistency and rectal pain. Nutrition consult service is following. Anticipate discharge home in next 24 hours with final ID recommendations. Hemoglobin 8.2, WBC 7.5 and platelets 241 02/06/2019 Patient denied any new complaints today. Tolerating oral diet. Rectal pain is improved and will be continued on topical creams. Patient recorded on antibiotics in the form of Ceftin as per ID recommendations. Laboratory data reviewed. No other acute overnight issues. Patient is stable to be discharged home and follow with oncology and primary care physician. Physical exam GENERAL: The patient is alert and oriented x3, not in any acute distress. Well developed, well nourished. HEENT: Pupils are round and equally reacting to light. EOMI. No scleral icterus. No conjunctival pallor. Normocephalic, atraumatic. No pharyngeal erythema. No thyromegaly. CARDIOVASCULAR: S1 and S2 present. No murmurs, rubs, or gallops. PULMONARY: Chest is clear to auscultation, no wheezing or crackles. -ABDOMEN: Soft, nontender, nondistended, normoactive bowel sounds. No palpable organomegaly. Rectal wound is healing with surrounding cellulitis. MUSCULOSKELETAL: No joint swelling or deformity. EXTREMITIES: No cyanosis, clubbing, or pedal edema. NEUROLOGICAL: Gross neurological examination did not reveal any focal deficits. SKIN: No rashes. Vital Signs - 24 hr 02/06/19 02/06/19 02/06/19 05:00 07:15 11:38 Temperature 98.3 F 98.3 F Pulse Rate [ 86 76 Pulse Oximetery ] Respiratory 16 16 17 Rate Blood Pressure 163/87 139/71 [Left Arm] O2 Sat by Pulse 99 99 Oximetry 02/06/19 17:44 Temperature Pulse Rate [ Pulse Oximetery ] Respiratory 17 Rate Blood Pressure [Left Arm] O2 Sat by Pulse Oximetry Total time taken greater than 35 minutes including 18 minutes for counseling and coordination of care. Patient Condition at Discharge: Fair Plan - Discharge Summary Discharge Rx Participant: No New Discharge Prescriptions: New Lidocaine [Anecream 4%] 1 applic TOPICAL BID PRN #30 gm PRN Reason: Pain Petrolatum, White [Aquaphor] 1 applic TOPICAL TID 30 Days #60 gm Triamcinolone 0.1% Cream [Kenalog 0.1% Cream] 1 applic TOPICAL BID PRN #30 gram PRN Reason: Pain Nystatin 100,000 Unit/gm Powd [Mycostatin Powder] 1 applic TOPICAL TID 28 Days #1 bottle Cefuroxime Axetil [Ceftin] 500 mg PO BID 7 Days #14 tab Fluconazole [Diflucan] 100 mg PO DAILY #7 tab Continue Carvedilol [Coreg] 6.25 mg PO BID-W/MEALS Aspirin 81 mg PO DAILY Rosuvastatin [Crestor] 20 mg PO SUTUTHSA Omeprazole 40 mg PO HS Docusate [Colace] 100 mg PO DAILY PRN PRN Reason: Constipation Omeprazole 20 mg PO QAM Prochlorperazine [Compazine] 10 mg PO Q6H PRN PRN Reason: Nausea Losartan [Cozaar] 25 mg PO DAILY Hydrocodone/Acetaminophen [Mozier 5-325] 1 tab PO Q6H PRN PRN Reason: Pain Apixaban [Eliquis] 5 mg PO BID Discontinued Cephalexin [Keflex] 500 mg PO QID Dexamethasone See Taper PO DIRECTED Discharge Medication List Carvedilol [Coreg] 6.25 mg PO BID-W/MEALS 11/30/15 [History] Aspirin 81 mg PO DAILY 02/13/18 [History] Rosuvastatin [Crestor] 20 mg PO SUTUTHSA 02/13/18 [History] Docusate [Colace] 100 mg PO DAILY PRN 05/29/18 [History] Omeprazole 40 mg PO HS 05/29/18 [History] Apixaban [Eliquis] 5 mg PO BID 01/27/19 [History] Hydrocodone/Acetaminophen [[place]ozier 5-325] 1 tab PO Q6H PRN 01/27/19 [History] Losartan [Cozaar] 25 mg PO DAILY 01/27/19 [History] Omeprazole 20 mg PO QAM 01/27/19 [History] Prochlorperazine [Compazine] 10 mg PO Q6H PRN 01/27/19 [History] Lidocaine [Anecream 4%] 1 applic TOPICAL BID PRN #30 gm 02/02/19 [Rx] Nystatin 100,000 Unit/gm Powd [Mycostatin Powder] 1 applic TOPICAL TID 28 Days #1 bottle 02/02/19 [Rx] Petrolatum, White [Aquaphor] 1 applic TOPICAL TID 30 Days #60 gm 02/02/19 [Rx] Triamcinolone 0.1% Cream [Kenalog 0.1% Cream] 1 applic TOPICAL BID PRN #30 gram 02/02/19 [Rx] Cefuroxime Axetil [Ceftin] 500 mg PO BID 7 Days #14 tab 02/06/19 [Rx] Fluconazole [Diflucan] 100 mg PO DAILY #7 tab 02/06/19 [Rx] Follow up Appointment(s)/Referral(s): Damien Donahue MD [Primary Care Provider] - 02/19/19 1:20 pm [place] ANP[facility] [Nurse Practitioner] - 02/14/19 2:45 pm Patient Instructions/Handouts: Cefuroxime (By mouth), Nystatin (On the skin), Fluconazole (By mouth), Lidocaine (On the skin), Triamcinolone (On the skin), Miconazole/Zinc Oxide/White Petrolatum (On the skin), Cellulitis (DC), Sepsis (GEN) Discharge Disposition: HOME SELF-CARE
== END 2019-02-06 17:48 | disposition home or self-care (01) | DRG 862 ==
LOC: EC 12:32 → 3NMEDONC 15:07
PROVIDERS: ADMIT Hospitalist; ATTEND Hospitalist
DX: T81.44XA Sepsis following a procedure, initial encounter (principal); A41.1 Sepsis due to other specified staphylococcus; D61.810 Antineoplastic chemotherapy induced pancytopenia; C21.8 Malignant neoplasm of overlapping sites of rectum, anus and anal canal; E44.1 Mild protein-calorie malnutrition; K61.2 Anorectal abscess; T81.41XA Infection following a procedure, superficial incisional surgical site, initial encounter; K62.89 Other specified diseases of anus and rectum; E78.5 Hyperlipidemia, unspecified; E86.0 Dehydration; E87.6 Hypokalemia; F51.01 Primary insomnia; I10 Essential (primary) hypertension; I25.10 Atherosclerotic heart disease of native coronary artery without angina pectoris; K12.0 Recurrent oral aphthae; K12.30 Oral mucositis (ulcerative), unspecified; K21.9 Gastro-esophageal reflux disease without esophagitis; K52.89 Other specified noninfective gastroenteritis and colitis; T45.1X5A Adverse effect of antineoplastic and immunosuppressive drugs, initial encounter; Z79.01 Long term (current) use of anticoagulants; Z79.82 Long term (current) use of aspirin; Z79.899 Other long term (current) drug therapy; Z92.3 Personal history of irradiation; Z95.1 Presence of aortocoronary bypass graft; Z92.21 Personal history of antineoplastic chemotherapy
CPT/HCPCS: 36415; 71046; 80048; 80053; 80202; 83735; 84132; 85025; 86850; 86900; 86901; 86920; 87040; 87086; 96361; 96374; 96375; 99284

== ENCOUNTER → 2019-03-16 | Outpatient (CLI) | payer MEDICARE, BC ==
--- NOTE | 2019-03-16 12:21 | CT ---
EXAMINATION TYPE: CT ChestAbdPelvis w con DATE OF EXAM: 03/16/2019 COMPARISON: Fusion 10/28/2018 HISTORY: Anal cancer CT DLP: 898.90 mGycm CONTRAST: CT scan of the chest, abdomen and pelvis is performed with Oral Contrast and with IV Contrast, patien t injected with 100 ml mL of Isovue 300. CT Chest: LUNGS: The lungs are clear and free of infiltrate or atelectasis. No pulmonary nodule or mass is det ected. No pleural effusion or CT evidence of interstitial lung disease. MEDIASTINUM: Thoracic aorta is of normal caliber. The heart is not enlarged. Subcentimeter lymph no de right paratracheal region measures 9.9 mm). Subcarinal lymph node measures 1 cm. Several subcentim eter a small AP window lymph nodes. Fixed hiatal hernia. Gastroesophageal reflux. HILAR STRUCTURES: No evidence for mass. No hilar adenopathy is appreciated. OTHER: No significant abnormality. CONTRAST CT ABDOMEN AND PELVIS FINDINGS: LIVER/GB: Fatty hepatic infiltration noted. No calcified gallstones. No space occupying hepatic le rubi. Biliary tree is of normal caliber. PANCREAS: No inflammation. No distinct mass. SPLEEN: No splenic enlargement. No lesion seen. ADRENALS: No nodule. No thickening. KIDNEYS/BLADDER: No hydronephrosis. No nephrolithiasis. No distinct renal mass. BOWEL: Normal appendix. Normal bowel caliber. No inflammation. No visible inguinal mass identified at this time. GENITAL ORGANS: No gross abnormality. LYMPH NODES: No greater than 1cm abdominal or pelvic lymph nodes are appreciated. AORTA: No significant abnormality. OSSEOUS STRUCTURES: No significant abnormality is seen. OTHER: No significant additional abnormality is seen. IMPRESSION: 1. No definite evidence for metastatic disease or recurrent disease at this time.
== END | disposition home or self-care (01) ==
LOC: RADPROMAIN 10:32
PROVIDERS: ATTEND Internal Medicine Hematology & Oncology
DX: C44.520 Squamous cell carcinoma of anal skin (principal)
CPT/HCPCS: 82565; 84520; 71260; 74177; 36415; Q9967

== ENCOUNTER → 2019-04-13 | Outpatient (CLI) | payer MEDICARE, BC ==
--- NOTE | 2019-04-16 08:39 | US ---
EXAMINATION TYPE: US venous doppler duplex LE DATE OF EXAM: 04/13/2019 11:58 AM COMPARISON: 05/29/2018 CLINICAL HISTORY: I82.491 ACUTE VENOUS EMBOLISM AND THROMBOSIS DEEP VESSELS. History of right DVT. SIDE PERFORMED: Bilateral TECHNIQUE: The lower extremity deep venous system is examined utilizing real time linear array sonog carlene with graded compression, doppler sonography and color-flow sonography. VESSELS IMAGED: External Iliac Vein (EIV) Common Femoral Vein Deep Femoral Vein Greater Saphenous Vein * Femoral Vein Popliteal Vein Small Saphenous Vein * Proximal Calf Veins (* superficial vessels) Right Leg: There does appear to be some chronic changes in the popliteal vein on the right. The vein is of small caliber here and the upper portion is not compressible. This is an improvement from the comparison. Left Leg: Negative for DVT Patient is currently on blood thinners. IMPRESSION: 1. Chronic popliteal venous thrombosis right lower extremity. 2. Left lower extremity appears negative for deep venous thrombosis.
== END | disposition home or self-care (01) ==
LOC: RADUSWWP 11:03
PROVIDERS: ATTEND Internal Medicine Hematology & Oncology
DX: I82.531 Chronic embolism and thrombosis of right popliteal vein (principal)
CPT/HCPCS: 93970

== ENCOUNTER → 2019-06-18 | Outpatient (CLI) | payer MEDICARE, BC ==
--- NOTE | 2019-06-18 12:44 | CT ---
CT CHEST FOR PULMONARY EMBOLISM. EXAMINATION TYPE: CT angio chest DATE OF EXAM: 06/18/2019 INDICATION: Acute venous thrombosis and embolism, history of anal cancer CT DLP: 252 mGycm, Automated exposure control for dose reduction was used. CONTRAST: Patient injected with 80 mL of Isovue 370. COMPARISON: 03/16/2019 TECHNIQUE: CT of the chest is performed on a spiral scan at 2 mm thick sections. Study is performed with intravenous contrast timed for evaluation for pulmonary embolism. This will limit additional po rtions of the evaluation. 3-D MIP images reconstructed by the technologist are reviewed on the compu ter in the coronal and sagittal planes. FINDINGS: No persistent filling defects are evident to suggest an acute pulmonary embolism. No mediastinal or hilar adenopathy enlarged by CT criteria is evident. The ascending aorta diameter at the level of the main pulmonary artery is 0.7 cm. The main pulmonary artery diameter at the bifur cation is 2.0 cm. A moderate size hiatal hernia present. Some coronary artery calcification is likely present. There ar e multiple mediastinal lymph nodes present. Largest of these measure 1.0 cm at the aortopulmonic wind ow 1.1 cm in the pretracheal space. Additional smaller shotty lymphadenopathy is present. These have increased in number and size from the comparison 03/16/2018. Limited CT section through the upper abdomen are unremarkable. IMPRESSIONS: 1. Enlarged mediastinal adenopathy slightly more prominent and numerous than the comparison 03/16/2019 . Consider follow-up with PET/CT.
--- NOTE | 2019-06-18 12:57 | CT ---
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 CONTRAST: 80 mL of Isovue 370. Study performed with Oral Contrast TECHNIQUE: Axial images were obtained from above the diaphragm to the pubic rami in the axial plane a t 5 mm thick sections. Reconstructed images are reviewed on the computer in the coronal plane. FINDINGS: Limited CT sections are obtained the lung bases. The lung bases are clear. There is a moderate size hiatal hernia. There are calcifications within the aorta. CT ABDOMEN: Liver: Normal Spleen: Normal Pancreas: Normal Adrenal glands: The adrenal glands are normal. Gallbladder: Normal Kidneys: No masses are evident. No hydronephrosis is present. No cysts are present. Delayed images were obtained through the kidneys, which remain unremarkable. Aorta: Vascular calcification is within the aorta. Inferior vena cava: Normal. CT PELVIS: Loops of bowel within the abdomen and pelvis are normal. There are loops of bowel which are incom pletely distended or lack oral contrast limiting their evaluation. There is large fecal bolus at the level the rectum. Appendix: Not identified. No inflammatory changes or dilated tubular structures are evident. Urinary bladder: Normal. Genitourinary structures: Uterus and adnexa appear unremarkable. No free fluid is evident. Osseous structures: No suspicious lytic or sclerotic lesions. IMPRESSIONS: 1. No suspicious acute abnormality. 2. No suspicious change to suggest metastatic disease within the [id number].
== END | disposition home or self-care (01) ==
LOC: RADPROMAIN 10:10
PROVIDERS: ATTEND Internal Medicine Hematology & Oncology
DX: C44.520 Squamous cell carcinoma of anal skin (principal); R59.0 Localized enlarged lymph nodes; I82.491 Acute embolism and thrombosis of other specified deep vein of right lower extremity
CPT/HCPCS: 82565; 84520; 71275; 74177; J1642; Q9967 ×2

== ENCOUNTER → 2019-09-18 | Outpatient (CLI) | payer MEDICARE ==
--- NOTE | 2019-09-18 13:39 | US ---
EXAMINATION TYPE: US venous doppler duplex LE DATE OF EXAM: 09/18/2019 1:04 PM COMPARISON: NONE CLINICAL HISTORY: I82.491 EMBOLISM AND THROMBOSIS. History of DVT. Patient on blood thinners SIDE PERFORMED: bilateral TECHNIQUE: The lower extremity deep venous system is examined utilizing real time linear array sonog carlene with graded compression, doppler sonography and color-flow sonography. VESSELS IMAGED: External Iliac Vein (EIV) Common Femoral Vein Deep Femoral Vein Greater Saphenous Vein * Femoral Vein Popliteal Vein Small Saphenous Vein * Proximal Calf Veins (* superficial vessels) Right Leg: Chronic appearing thrombus right popliteal vein, thready flow with partial compression no jim. Anechoic area right popliteal fossa = 5.1 x 1.5 x 3.5cm, Fenton's cyst Left Leg: No evidence of DVT IMPRESSION: Redemonstration of an incompletely occluding chronic deep venous thrombosis within the p opliteal vein of the right lower extremity. No sonographic evidence of deep venous thrombosis within the left lower extremity.
--- NOTE | 2019-09-18 15:31 | CT ---
EXAMINATION TYPE: CT ChestAbdPelvis w con DATE OF EXAM: 09/18/2019 COMPARISON: 06/18/2019 HISTORY: Follow up anal cancer CT DLP: 1573 mGycm CONTRAST: CT scan of the chest, abdomen and pelvis is performed with Oral Contrast and with IV Contrast, patien t injected with 100 mL of Isovue 300. CT Chest: LUNGS: The lungs are clear and free of infiltrate or atelectasis. No pulmonary nodule or mass is det ected. No pleural effusion or CT evidence of interstitial lung disease. MEDIASTINUM: Thoracic aorta is of normal caliber. The heart is not enlarged. No evidence for media stinal mass or adenopathy. HILAR STRUCTURES: No evidence for mass. No hilar adenopathy is appreciated. OTHER: Moderate fixed hiatal hernia. CONTRAST CT ABDOMEN AND PELVIS FINDINGS: LIVER/GB: No calcified gallstones. No space occupying hepatic lesion. Biliary tree is of normal ca liber. PANCREAS: No inflammation. No distinct mass. SPLEEN: No splenic enlargement. No lesion seen. ADRENALS: No nodule. No thickening. KIDNEYS/BLADDER: No hydronephrosis. No nephrolithiasis. Tiny simple cyst upper pole right kidney le ss than 1 cm in size. BOWEL: Normal appendix. Normal bowel caliber. No inflammation. GENITAL ORGANS: No gross abnormality. LYMPH NODES: No greater than 1cm abdominal or pelvic lymph nodes are appreciated. AORTA: No significant abnormality. OSSEOUS STRUCTURES: No significant abnormality is seen. OTHER: No significant additional abnormality is seen. IMPRESSION: 1. No evidence for metastatic disease at this time. No evidence for recurrent disease.
== END | disposition home or self-care (01) ==
LOC: RADPROMAIN 10:56
PROVIDERS: ATTEND Internal Medicine Hematology & Oncology
DX: I82.531 Chronic embolism and thrombosis of right popliteal vein (principal); Z85.048 Personal history of other malignant neoplasm of rectum, rectosigmoid junction, and anus
CPT/HCPCS: 82565; 84520; 93970; 71260; 74177; J1642; Q9967

== ENCOUNTER → 2020-03-10 | Outpatient (CLI) | payer MEDICARE ==
--- NOTE | 2020-03-10 18:02 | CT ---
EXAMINATION TYPE: CT ChestAbdPelvis w con DATE OF EXAM: 03/10/2020 COMPARISON: 09/18/2019 and 06/18/2019 HISTORY: 74-year-old female C44.520 Squamous cell CA of the anal skin TECHNIQUE: Contiguous axial scanning of the chest, abdomen, and pelvis performed with IV Contrast, pa tient injected with 100 mL of Isovue 370. Delayed images through the kidneys were obtained. Coronal/s agittal reconstructions performed. CT DLP: 1274.5 mGycm Automated exposure control for dose reduction was used. FINDINGS: CHEST: Heart upper limits of normal in size without pericardial effusion. Median sternotomy wires are presen t with post-CABG clips in the mediastinum. Right anterior chest wall injection port with catheter tip at the lower SVC. Mild to moderate atherosclerotic arch calcifications with a bovine configuration to the aortic arch. Ectatic proximal arch of 3.5 cm. Mildly enlarged precarinal lymph node of 1.1 cm and borderline size hilar lymph nodes measuring up to 9 mm remain unchanged. No new or increasing thoracic lymphadenopathy. Hazy dependent atelectasis. 4 mm right midlung pulmonary nodule unchanged back to at least 06/18/2019. No consolidation or pleural effusion. ABDOMEN: Moderate sized hiatal hernia. No focal liver lesion or biliary ductal dilatation. Portal venous syste m is patent. Gallbladder, adrenal glands, spleen, and pancreas appear within normal limits. A 1.0 cm cortical hypodensity upper pole of the right kidney is unchanged back to at least 06/18/2019 suggesting a benign etiology. Symmetric uptake and excretion of contrast from both kidneys. No dilated small bowel, free fluid, or free air. No mesenteric or retroperitoneal lymphadenopathy. Oral contrast progressed to the splenic flexure. Mild overall stool burden. Mild diverticular change in the proximal sigmoid. No pericolic inflammatory change. Mild/moderate prostatic calcifications abdominal aorta and mild within the iliac arteries. PELVIS: Bladder urine distended. Uterus anteverted. Both ovaries are visualized. No abnormal fluid collection in the pelvis or pelvic lymphadenopathy. BONES: Mild degenerative change at the hips. Facet arthropathy lower lumbar spine with grade 1 anterolisthes is at L4-L5. No osseous destructive process. IMPRESSION: NO FINDINGS OF METASTATIC DISEASE. BORDERLINE AND MILDLY ENLARGED PRECARINAL AND BILATERAL HILAR LYMP H NODES MEASURING UP TO 1.1 CM REMAIN UNCHANGED DOES A 4 MM RIGHT MIDLUNG PULMONARY NODULE BACK TO AT LEAST 06/18/2019.
== END | disposition home or self-care (01) ==
LOC: RADPROMAIN 13:12
PROVIDERS: ATTEND Internal Medicine Hematology & Oncology
DX: C44.520 Squamous cell carcinoma of anal skin (principal); R91.1 Solitary pulmonary nodule
CPT/HCPCS: 82565; 84520; 71260; 74177; 36415; J1642; Q9967

== ENCOUNTER → 2020-05-01 | Outpatient (CLI) | payer MEDICARE ==
--- NOTE | 2020-05-02 11:04 | MM ---
Reason for exam: screening (asymptomatic). Last mammogram was performed 1 year and 6 months ago. History: Patient is postmenopausal, history of other cancer, and had first child at age 36. Family history of breast cancer. Physical Findings: A clinical breast exam by your physician is recommended on an annual basis and results should be correlated with mammographic findings. MG 3D Screening Mammo W/Cad Bilateral CC and MLO view(s) were taken. Prior study comparison: October 18, 2018, left breast MG work up mamm w CAD LT. September 20, 2018, bilateral MG screening mammo w CAD. The breast tissue is heterogeneously dense. This may lower the sensitivity of mammography. No significant changes when compared with prior studies. ASSESSMENT: Benign, BI-RAD 2 RECOMMENDATION: Routine screening mammogram of both breasts in 1 year.
== END | disposition home or self-care (01) ==
LOC: RADMAMWWP 11:45
PROVIDERS: ATTEND Family Medicine
DX: Z12.31 Encounter for screening mammogram for malignant neoplasm of breast (principal)
CPT/HCPCS: 77063; 77067

== ENCOUNTER → 2020-07-07 | Outpatient (CLI) | payer MEDICARE ==
--- NOTE | 2020-07-07 15:45 | CT ---
EXAMINATION TYPE: CT ChestAbdPelvis w con DATE OF EXAM: 07/07/2020 COMPARISON: 03/10/2020 HISTORY: f/u ca CT DLP: 1372.1 mGycm Automated exposure control for dose reduction was used. CONTRAST: CT scan of the chest, abdomen and pelvis is performed with Oral Contrast and with IV Contrast, patien t injected with 80cc mL of Isovue 300. FINDINGS: CHEST: Heart upper limits of normal in size without pericardial effusion. Median sternotomy wires are present with post-CABG clips in the mediastinum. Right anterior chest wall injection port with catheter tip at the lower SVC. Mild to moderate atheros clerotic arch calcifications with a bovine configuration to the aortic arch. Ectatic proximal arch of 3.5 cm. Mildly enlarged precarinal lymph node of 1.1 cm and borderline size hilar lymph nodes measuring up to 9 mm remain unchanged. No new or increasing thoracic lymphadenopath y. Hazy dependent atelectasis. 4 mm right midlung pulmonary nodule unchanged back to at least 06/18/2019 . No consolidation or pleural effusion. 2 mm nodule on axial image 26 2 small to characterize. Right upper lobe anterior segment ABDOMEN: Moderate sized hiatal hernia. No focal liver lesion or biliary ductal dilatation. Portal kaylee ous system is patent. Gallbladder, adrenal glands, spleen, and pancreas appear within normal limits. A 1.0 cm cortical hypodensity upper pole of the right kidney is unchanged back to at least 06/18/2019 suggesting a benign etiology. Symmetric uptake and excretion of contrast from both kidneys. No dilated small bowel, free fluid, or free air. No mesenteric or retroperitoneal lymphadenopathy. Oral contrast progressed to the splenic f lexure. Mild overall stool burden. Mild diverticular change in the proximal sigmoid. No pericolic inf lammatory change. Mild/moderate prostatic calcifications abdominal aorta and mild within the iliac ar teries. Moderate-sized hiatal hernia. PELVIS: Bladder urine distended. Uterus anteverted. Both ovaries are visualized. No abnormal fluid co llection in the pelvis or pelvic lymphadenopathy. BONES: Mild degenerative change at the hips. Facet arthropathy lower lumbar spine with grade 1 chuck listhesis at L4-L5. No osseous destructive process. IMPRESSION: 1. Borderline mediastinal and hilar lymph nodes are stable relative to the prior exam. 2. Stable 4 mm right midlung pulmonary nodule. 3. Stable right upper pole renal lesion too small to characterize. Stability over time suggests benig n etiology.
== END | disposition home or self-care (01) ==
LOC: RADCTMAIN 12:38
PROVIDERS: ATTEND Internal Medicine Hematology & Oncology
DX: R91.1 Solitary pulmonary nodule (principal); N28.89 Other specified disorders of kidney and ureter; C44.520 Squamous cell carcinoma of anal skin
CPT/HCPCS: 82565; 84520; 71260; 74177; 36415; Q9967

== ENCOUNTER → 2020-07-18 | Outpatient (CLI) | payer MEDICARE ==
--- NOTE | 2020-07-18 15:06 | US ---
EXAMINATION TYPE: US venous doppler duplex LE RT DATE OF EXAM: 07/18/2020 2:42 PM COMPARISON: NONE CLINICAL HISTORY: I82.491 Embollism right lower extremity. Hx of DVT on blood thinners SIDE PERFORMED: Right TECHNIQUE: The lower extremity deep venous system is examined utilizing real time linear array sonog carlene with graded compression, doppler sonography and color-flow sonography. VESSELS IMAGED: Common Femoral Vein Deep Femoral Vein Greater Saphenous Vein * Femoral Vein Popliteal Vein Small Saphenous Vein * Right Leg: Chronic thrombus in proximal popliteal vein with thready flow otherwise negative for DVT. IMPRESSION: 1. Some chronic thrombus within the proximal popliteal artery on the right may be present. There is c olor flow present. This may be somewhat improved from comparison.
== END | disposition home or self-care (01) ==
LOC: RADUSWWP 14:21
PROVIDERS: ATTEND Internal Medicine Hematology & Oncology
DX: I82.491 Acute embolism and thrombosis of other specified deep vein of right lower extremity (principal)

== ENCOUNTER 2020-10-20 23:36 | Inpatient (IN) | payer MEDICARE ==
--- NOTE | 2020-10-20 23:42 | ED ---
Recheck HPI - General Stated Complaint: Pancreatitis Time Seen by Provider: 10/20/20 23:40 Source: RN notes reviewed, old records reviewed Limitations: no limitations - History of Present Illness Initial Comments: This is a 75-year-old female DF for evaluation patient accepted in transfer, patient accepted from [facility] for evaluation of pancreatitis multiple drug or medications and therapy but no recent chemotherapy. Patient has no significant recent medication changes severe abdominal pain with nausea and vomiting. No fevers. Patient denies history of alcohol abuse. Patient's pain is still about 5 out of 10 MD Complaint: abnormal lab (Severely elevated pancreatitis lipase) -: hour(s) Returns Today for: Called Because of Abnormal Lab/Test, persistent/worsening pain related to initial visit Symptoms Since Prior Visit: worsening pain Context: other (Patient transferred for further evaluation) Associated Symptoms: nausea, abdominal pain Treatments Prior to Arrival: Given Pain Meds on - Related Data Home Medications Medication Instructions Recorded Confirmed carvediloL [Coreg] 6.25 mg PO BID-W/MEALS 11/30/15 01/27/19 Aspirin 81 mg PO DAILY 02/13/18 01/27/19 Rosuvastatin [Crestor] 20 mg PO SUTUTHSA 02/13/18 01/27/19 Docusate [Colace] 100 mg PO DAILY PRN 05/29/18 01/27/19 Omeprazole 40 mg PO HS 05/29/18 01/27/19 Apixaban [Eliquis] 5 mg PO BID 01/27/19 01/27/19 Hydrocodone/Acetaminophen [[place] 1 tab PO Q6H PRN 01/27/19 01/27/19 5-325] Losartan [Cozaar] 25 mg PO DAILY 01/27/19 01/27/19 Omeprazole 20 mg PO QAM 01/27/19 01/27/19 Prochlorperazine [Compazine] 10 mg PO Q6H PRN 01/27/19 01/27/19 Previous Rx's Medication Instructions Recorded Lidocaine [Anecream 4%] 1 applic TOPICAL BID PRN #30 gm 02/02/19 Nystatin 100,000 Unit/gm Powd 1 applic TOPICAL TID 28 Days #1 02/02/19 [Mycostatin Powder] bottle Petrolatum, White [Aquaphor] 1 applic TOPICAL TID 30 Days #60 gm 02/02/19 Triamcinolone 0.1% Cream [Kenalog 1 applic TOPICAL BID PRN #30 gram 02/02/19 0.1% Cream] Cefuroxime Axetil [Ceftin] 500 mg PO BID 7 Days #14 tab 02/06/19 Fluconazole [Diflucan] 100 mg PO DAILY #7 tab 02/06/19 Allergies Allergy/AdvReac Type Severity Reaction Status Date / Time No Known Allergies Allergy Verified 01/27/19 17:00 Review of Systems ROS Statement: Those systems with pertinent positive or pertinent negative responses have been documented in the HPI. ROS Other: All systems not noted in ROS Statement are negative. Past Medical History Past Medical History: Coronary Artery Disease (CAD), GERD/Reflux, Hyperlipidemia, Hypertension Additional Past Medical History / Comment(s): "sore" by the rectum w/ some bleeding,painful with bowel movements History of Any Multi-Drug Resistant Organisms: None Reported Past Surgical History: Coronary Bypass/CABG, Heart Catheterization Additional Past Surgical History / Comment(s): deviated septum repair Past Anesthesia/Blood Transfusion Reactions: No Reported Reaction Past Psychological History: No Psychological Hx Reported Past Alcohol Use History: None Reported Past Drug Use History: None Reported - Past Family History Mother Family Medical History: No Reported History General Exam General appearance: alert, in no apparent distress Head exam: Present: atraumatic, normocephalic, normal inspection Eye exam: Present: normal appearance, PERRL, EOMI. Absent: scleral icterus, conjunctival injection, periorbital swelling ENT exam: Present: normal exam, mucous membranes moist Neck exam: Present: normal inspection. Absent: tenderness, meningismus, lymphadenopathy Respiratory exam: Present: normal lung sounds bilaterally. Absent: respiratory distress, wheezes, rales, rhonchi, stridor Cardiovascular Exam: Present: regular rate, normal rhythm, normal heart sounds. Absent: systolic murmur, diastolic murmur, rubs, gallop, clicks GI/Abdominal exam: Present: soft, tenderness, normal bowel sounds. Absent: distended, guarding, rebound, rigid Extremities exam: Present: normal inspection, full ROM, normal capillary refill. Absent: tenderness, pedal edema, joint swelling, calf tenderness Back exam: Present: normal inspection Neurological exam: Present: alert, oriented X3, CN II-XII intact Psychiatric exam: Present: normal affect, normal mood Skin exam: Present: warm, dry, intact, normal color. Absent: rash Course - Reevaluation(s) Reevaluation #1: 10/20/20 23:48 Medical record is reviewed 10/20/20 23:48 Transferring paperwork is evaluated, patient does have pancreatic lipase to 20,000, CT showing pancreatitis - Consultations Consultation #1: Spoke with [facility] who agreed to admit this patient Medical Decision Making - Medical Decision Making 75 female DF for evaluation positive pancreatitis. Patient be admitted for further evaluation management and causes of possible pancreatitis - Radiology Data Radiology results: report reviewed (CT shows pancreatitis, US pending) Disposition Clinical Impression: Acute pancreatitis Disposition: ADMITTED IP TO THIS [facility] Condition: Good Is patient prescribed a controlled substance at d/c from ED?: No Referrals: Damien Donahue MD [Primary Care Provider] - 1-2 days
[2020-10-20] MEDS ORDERED: SODIUM CHLORIDE 0.9% 1,000 ML IV STA ×2 (23:44)
[2020-10-20] MEDS ORDERED: ONDANSETRON 4 MG/2 ML VIAL IVP STA (23:44)
[2020-10-20] MEDS ORDERED: NALOXONE 0.4 MG/ML 1 ML VIAL IV PRN (23:44)
[2020-10-20] MEDS ORDERED: PANTOPRAZOLE 40 MG/10 ML VIAL IVP STA (23:44)
[2020-10-20] MEDS ORDERED: MORPHINE SULFATE 4 MG/ML SYRINGE IV STA (23:44)
[2020-10-21 00:36] LABS: Basophils % (A) 0 %; Eosinophils # (A) 0.1 k/uL (0-0.7); Eosinophils % (A) 1 %; HCT 34.1 % (34.0-46.0); HGB 11.1 gm/dL (11.4-16.0); Lymphocytes # (A) 0.7 k/uL (1.0-4.8); Lymphocytes % (A) 7 %; MCH 27.7 pg (25.0-35.0); MCHC 32.6 g/dL (31.0-37.0); Mean Platelet Volume 6.7; Monocytes # (A) 0.4 k/uL (0-1.0); Monocytes % (A) 4 %; Neutrophils # (A) 8.7 k/uL (1.3-7.7); Neutrophils % (A) 87 %; Platelet Count 270 k/uL (150-450); RBC 4.02 m/uL (3.80-5.40); RDW 15.2 % (11.5-15.5)
[2020-10-21 01:10] LABS: ALT 61 U/L (4-34); AST 65 U/L (14-36); African American GFR (CKD) 79 (>60 ml/min/1.73 sqM); Albumin 3.7 g/dL (3.5-5.0); Alkaline Phosphatase 102 U/L (38-126); Anion Gap 9 mmol/L; Blood Urea Nitrogen 25 mg/dL (7-17); Calcium 8.3 mg/dL (8.4-10.2); Carbon Dioxide 25 mmol/L (22-30); Chloride 102 mmol/L (98-107); Glucose 140 mg/dL (74-99); Non-African American GFR(CKD) 69 (>60 ml/min/1.73 sqM); Sodium 136 mmol/L (137-145); Total Bilirubin 0.3 mg/dL (0.2-1.3); Total Protein 6.7 g/dL (6.3-8.2)
[2020-10-21 01:30] LABS: Potassium 4.7 mmol/L (3.5-5.1)
[2020-10-21] MEDS ORDERED: HYDROmorphone 0.5 MG/0.5 ML SYRINGE IVP PRN (01:40)
[2020-10-21 02:45] LABS: Lipase >20000 U/L (23-300)
[2020-10-21] MEDS: ONDANSETRON 4 MG/2 ML VIAL IVP PRN ×2 (05:04→18:08)
[2020-10-21] MEDS: MORPHINE SULFATE 4 MG/ML SYRINGE IV PRN ×2 (05:06→12:58)
[2020-10-21 05:37] LABS: Basophils % (A) 0 %; Eosinophils # (A) 0.1 k/uL (0-0.7); Eosinophils % (A) 1 %; HCT 32.9 % (34.0-46.0); HGB 10.6 gm/dL (11.4-16.0); Lymphocytes # (A) 0.7 k/uL (1.0-4.8); Lymphocytes % (A) 8 %; MCH 27.7 pg (25.0-35.0); MCHC 32.1 g/dL (31.0-37.0); MCV 86.2 fL (80.0-100.0); Monocytes # (A) 0.6 k/uL (0-1.0); Monocytes % (A) 7 %; Neutrophils % (A) 81 %; Platelet Count 276 k/uL (150-450); RBC 3.82 m/uL (3.80-5.40); RDW 15.3 % (11.5-15.5); WBC 8.6 k/uL (3.8-10.6)
[2020-10-21] MEDS: HYDROmorphone 1 MG/ML 1 ML SYRINGE IVP PRN ×4 (05:44→20:37)
[2020-10-21 05:48] LABS: Albumin 3.5 g/dL (3.5-5.0); Calcium 7.9 mg/dL (8.4-10.2); Phosphorus 3.5 mg/dL (2.5-4.5); Potassium 4.5 mmol/L (3.5-5.1); Total Bilirubin 0.4 mg/dL (0.2-1.3); Total Protein 6.2 g/dL (6.3-8.2)
[2020-10-21] MEDS: ENOXAPARIN 40 MG/0.4 ML SYRINGE SQ SCH (09:47)
[2020-10-21] MEDS: PANTOPRAZOLE 40 MG/10 ML VIAL IV SCH (09:47)
[2020-10-21] MEDS: SODIUM CHLORIDE 0.9% 1,000 ML IV SCH ×2 (09:47→22:23)
--- NOTE | 2020-10-21 09:48 | US ---
EXAMINATION TYPE: US gallbladder DATE OF EXAM: 10/21/2020 COMPARISON: NONE CLINICAL HISTORY: pancreatitis. ABD PAIN EXAM MEASUREMENTS: Liver Length: 13.7 cm Gallbladder Wall: 0.2 cm CBD: 0.7 cm Right Kidney: 9.1 x 3.7 x 3.8 cm Pancreas: wnl. Tail is obscured by bowel gas cannot be evaluated. Liver: intercostal imaging due to bowel gas, wnl Gallbladder: wnl Evidence for sonographic Trent's sign: no CBD: wnl Right Kidney: wnl IMPRESSION: 1. No suspicious ultrasound changes to suggest acute pancreatitis.
[2020-10-21 10:26] LABS: Amylase 1947 U/L (30-110)
[2020-10-21 10:50] LABS: Lipase >20000 U/L (23-300)
[2020-10-21] MEDS: ASPIRIN 81 MG PO SCH (10:52)
[2020-10-21] MEDS: LEVOTHYROXINE 25 MCG TAB PO SCH (10:53)
[2020-10-21 11:11] LABS: Amylase 2274 U/L (30-110)
--- NOTE | 2020-10-21 19:05 | CONS ---
CONSULTATION DATE OF DICTATION: 10/21/2020 REASON FOR CONSULTATION: Acute pancreatitis. HISTORY OF PRESENT ILLNESS: The patient is a 75-year-old pleasant white female admitted to the hospital with acute onset of severe epigastric pain, for which she went to [facility] and subsequently was transferred for further management. She presented with severe epigastric pain associated with nausea and vomiting that started yesterday afternoon. The pain continued to progressively get worse. She went to the emergency room and was noted to have elevated amylase and lipase consistent with acute pancreatitis. Lipase was more than 20,000 and amylase was 2274. The patient never had these symptoms in the past. She denies any alcohol use. She did have a CT of the abdomen and pelvis done at [facility], and apparently it showed changes consistent with acute pancreatitis. PAST MEDICAL HISTORY: Significant for coronary artery disease, GERD, hypertension, hyperlipidemia. PAST SURGICAL HISTORY: CABG, cardiac catheterization, deviated nasal septum repair. MEDICATIONS: Medications at home include Coreg, aspirin, Crestor, omeprazole, Eliquis, [place], Cozaar, Compazine, Colace. ALLERGIES: NONE. SOCIAL HISTORY: No smoking. No alcohol use. FAMILY HISTORY: Unremarkable. REVIEW OF SYSTEMS: CARDIOPULMONARY: No chest pain or shortness of breath. GENITOURINARY: No dysuria or hematuria. MUSCULOSKELETAL: Unremarkable. SKIN: Unremarkable. ENDOCRINE: History of hypercholesterolemia. PSYCHIATRIC: Unremarkable. NEUROLOGY: Unremarkable. ENT/VISION: Unremarkable. CONSTITUTIONAL: No recent weight loss. No fever, chills, night sweats. HEMATOLOGY: Unremarkable. PHYSICAL EXAMINATION: She appears comfortable. No apparent distress. VITAL SIGNS: Stable. Blood pressure is 134/77, pulse rate 79, temperature 98.4. HEENT examination unremarkable. Conjunctivae pink. Sclerae anicteric. Oral cavity no lesions. NECK: No JVD or lymph node enlargement. CHEST: Clear to auscultation. HEART: Regular rate and rhythm. ABDOMEN: Soft. Bowel sounds are positive. There was tenderness in the epigastric area. Rest of the abdomen was benign. No organomegaly. EXTREMITIES: No pedal edema. NEUROLOGIC: Alert and oriented x3. No focal deficits. LABS: Labs at the time of admission to the hospital showed WBC 10, hemoglobin 11, platelets normal. Basic metabolic panel: BUN 25, creatinine 0.84. Lipase more than 20,000. Amylase is 2274. Today lipase more than 20,000 and amylase is 1947. AST and ALT are 49 and 49, respectively. Alkaline phosphatase and T-bilirubin are within normal limits. CT of the abdomen and pelvis done at [facility] showed changes consistent with acute pancreatitis. She did have ultrasound of the gallbladder done this morning that showed normal-appearing gallbladder, with no evidence of gallstones, and CBD was within normal limits. IMPRESSION: 1. This is a patient who presented to the hospital with acute onset of severe epigastric pain that started yesterday associated with nausea and vomiting and noted to have elevated amylase and lipase consistent with acute pancreatitis. The patient had no prior history of acute pancreatitis in the past. CT of the abdomen as well as ultrasound of the abdomen showed changes consistent with acute pancreatitis, but no evidence of gallstones or biliary ductal dilation. The patient has no history of alcohol abuse. At this time etiology of pancreatitis remains unclear, but this will be investigated. 2. History of hypertension and hyperlipidemia. 3. History of hypothyroidism. RECOMMENDATIONS: 1. Aggressive IV hydration. 2. Keep her n.p.o. for now except for ice chips. 3. Repeat labs in the morning. 4. Will obtain serum PATRICIA as well as IgG4 levels to evaluate for autoimmune pancreatitis. 5. Obtain fasting serum triglycerides. 6. Repeat labs in the morning. Will follow with you closely. Thank you for this consultation. MMODL / IJN: [id number] /
[2020-10-21] MEDS: carvediloL 6.25 MG TAB PO SCH (20:39)
[2020-10-22] MEDS: HYDROmorphone 1 MG/ML 1 ML SYRINGE IVP PRN ×5 (01:31→20:16)
[2020-10-22] MEDS: SODIUM CHLORIDE 0.9% 1,000 ML IV SCH ×3 (04:00→18:22)
[2020-10-22] MEDS: LEVOTHYROXINE 25 MCG TAB PO SCH (05:43)
[2020-10-22 06:45] LABS: Calcium 7.6 mg/dL (8.4-10.2); Potassium 4.1 mmol/L (3.5-5.1); Total Bilirubin 0.3 mg/dL (0.2-1.3); Total Protein 5.6 g/dL (6.3-8.2)
[2020-10-22] MEDS: LOSARTAN 25 MG TAB PO SCH ×2 (07:05→08:00)
[2020-10-22] MEDS: carvediloL 6.25 MG TAB PO SCH ×2 (07:13→18:19)
[2020-10-22] MEDS: ENOXAPARIN 40 MG/0.4 ML SYRINGE SQ SCH (07:59)
[2020-10-22] MEDS: ASPIRIN 81 MG PO SCH (07:59)
[2020-10-22] MEDS: PANTOPRAZOLE 40 MG/10 ML VIAL IV SCH (07:59)
--- NOTE | 2020-10-22 11:54 | P.HPIM ---
History of Present Illness H&P Date: 10/21/20 Chief Complaint: Acute pancreatitis 75-year-old female DF for evaluation patient accepted in transfer, with history of hypertension, hyperlipidemia patient accepted from [facility] for evaluation of pancreatitis multiple drug or medications and therapy but no recent chemotherapy. Patient has no significant recent medication changes severe abdominal pain with nausea and vomiting. No fevers. Patient denies history of alcohol abuse. Patient's pain is still about 5 out of 10 Review of Systems REVIEW OF SYSTEMS: CONSTITUTIONAL: No fever, no malaise, no fatigue. HEENT: No recent visual problems or hearing problems. Denied any sore throat. CARDIOVASCULAR: No chest pain, orthopnea, PND, no palpitations, no syncope. PULMONARY: No shortness of breath, no cough, no hemoptysis. GASTROINTESTINAL: No diarrhea, no nausea, no vomiting, no abdominal pain. NEUROLOGICAL: No headaches, no weakness, no numbness. HEMATOLOGICAL: Denies any bleeding or petechiae. GENITOURINARY: Denies any burning micturition, frequency, or urgency. MUSCULOSKELETAL/RHEUMATOLOGICAL: Denies any joint pain, swelling, or any muscle pain. ENDOCRINE: Denies any polyuria or polydipsia. The rest of the 14-point review of systems is negative. Past Medical History Past Medical History: Coronary Artery Disease (CAD), Cancer, Deep Vein Thrombosis (DVT), GERD/Reflux, Hyperlipidemia, Hypertension, Thyroid Disorder Additional Past Medical History / Comment(s): Squamous cell carcinoma of rectum area diagnosed in 2019, resolved. DVT right leg, chronic thrombus right popliteal vein, pancreatitis, shingles, hypothyroid. History of Any Multi-Drug Resistant Organisms: None Reported Past Surgical History: Coronary Bypass/CABG, Heart Catheterization Additional Past Surgical History / Comment(s): Deviated septum repair Past Anesthesia/Blood Transfusion Reactions: No Reported Reaction Additional Past Anesthesia/Blood Transfusion Reaction / Comment(s): Denies reactions. Smoking Status: Never smoker - Past Family History Mother Family Medical History: No Reported History Medications and Allergies Home Medications Medication Instructions Recorded Confirmed Type carvediloL [Coreg] 6.25 mg PO BID-W/MEALS 11/30/15 10/21/20 History Aspirin 81 mg PO DAILY 02/13/18 10/21/20 History Rosuvastatin [Crestor] 20 mg PO SUTUTHSA 02/13/18 10/21/20 History Omeprazole 40 mg PO HS 05/29/18 10/21/20 History Losartan [Cozaar] 25 mg PO DAILY 01/27/19 10/21/20 History Omeprazole 20 mg PO QAM 01/27/19 10/21/20 History Acetaminophen [Tylenol Arthritis] 650 mg PO Q6H PRN 10/21/20 10/21/20 History Apixaban [Eliquis] 2.5 mg PO BID 10/21/20 10/21/20 History Levothyroxine Sodium 25 mcg PO DAILY 10/21/20 10/21/20 History Allergies Allergy/AdvReac Type Severity Reaction Status Date / Time Folic acid antagonists AdvReac Unknown Uncoded 10/21/20 07:05 Physical Exam Vitals: Vital Signs Temp Pulse Pulse Resp BP BP Pulse Ox 10/21/20 01:51 98 F 69 20 153/82 98 10/20/20 23:47 98 F 70 18 131/77 96 Intake and Output 10/20/20 10/21/20 10/21/20 22:59 06:59 14:59 Output Total 450 Balance -450 Output: Urine 450 Other: Voiding Method Toilet Weight 90.9 kg - Constitutional General appearance: Present: average body habitus, cooperative, no acute distress - EENT Eyes: Present: anicteric sclerae, EOMI, PERRLA, normal appearance ENT: Present: hearing grossly normal, normal oropharynx Ears: bilateral: normal - Neck Neck: Present: normal ROM. Absent: lymphadenopathy, rigidity, thyromegaly Carotids: negative: bruit present Thyroid: bilateral: normal size, negative: enlarged, nodule - Respiratory Respiratory: bilateral: CTA, negative: rales, rhonchi, wheezing - Cardiovascular Rhythm: regular Heart sounds: normal: S1, S2 Abnormal Heart Sounds: Absent: systolic murmur, diastolic murmur - Gastrointestinal General gastrointestinal: Present: normal bowel sounds, soft. Absent: distended, organomegaly, tenderness - Genitourinary Genitourinary Comment(s): deferred - Integumentary Integumentary: Present: normal turgor. Absent: jaundiced, rash, ulcer - Neurologic Neurologic: Present: CNII-XII intact. Absent: focal deficits - Musculoskeletal Musculoskeletal: Present: gait normal, strength equal bilaterally - Psychiatric Psychiatric: Present: A&O x's 3, appropriate affect, intact judgment & insight Results CBC & Chem 7: 10/21/20 05:24 10/22/20 05:14 Labs: Abnormal Lab Results - Last 24 Hours (Table) 10/21/20 10/21/20 10/21/20 Range/Units 00:20 00:20 05:24 Hgb 11.1 L 10.6 L (11.4-16.0) gm/dL Hct 32.9 L (34.0-46.0) % Neutrophils # 8.7 H (1.3-7.7) k/uL Lymphocytes # 0.7 L 0.7 L (1.0-4.8) k/uL Sodium 136 L (137-145) mmol/L BUN 25 H (7-17) mg/dL Glucose 140 H (74-99) mg/dL Calcium 8.3 L (8.4-10.2) mg/dL AST 65 H (14-36) U/L ALT 61 H (4-34) U/L Total Protein (6.3-8.2) g/dL Lipase >74051 H (23-300) U/L 10/21/20 Range/Units 05:24 Hgb (11.4-16.0) gm/dL Hct (34.0-46.0) % Neutrophils # (1.3-7.7) k/uL Lymphocytes # (1.0-4.8) k/uL Sodium 136 L (137-145) mmol/L BUN 23 H (7-17) mg/dL Glucose 134 H (74-99) mg/dL Calcium 7.9 L (8.4-10.2) mg/dL AST 49 H (14-36) U/L ALT 49 H (4-34) U/L Total Protein 6.2 L (6.3-8.2) g/dL Lipase (23-300) U/L Thrombosis Risk Factor Assmnt - Choose All That Apply Any of the Below Risk Factors Present?: Yes Each Factor Represents 1 point: Abnormal pulmonary function (COPD), Obesity (BMI >25) Each Risk Factor Represents 2 Points: Age 61-74 years, Central venous access Each Risk Factor Represents 3 Points: History of DVT/PE Other congenital or acquired thrombophilia - If yes, enter type in comment: No Thrombosis Risk Factor Assessment Total Risk Factor Score: 9 Thrombosis Risk Factor Assessment Level: High Risk Assessment and Plan Assessment: 1. Acute appendicitis; etiology unclear - Patient is started on IV fluids, IV pain medications; keep patient nothing by mouth; monitor liver enzymes - Consult GI for further recommendations 2. Hypertension; stable on losartan 25 mg daily 3. Hyperlipidemia; Crestor 20 mg daily 4. Mild transaminitis; we will continue to monitor 5. Hypothyroidism; levothyroxine 25 MCG daily DVT prophylaxis; SCDs/subcu Lovenox CODE STATUS;
[2020-10-22 14:02] LABS: IgG Subclass 3 44.5 mg/dL (11.0-85.0); IgG Subclass 4 64.2 mg/dL (3.0-175.0)
--- NOTE | 2020-10-22 16:00 | P.GSCN ---
History of Present Illness Consult date: 10/22/20 History of present illness: Patient began having mid epigastric pain two days ago now, she states she had nothing abdnormal to eat, has never had this pain before, does not drink alcohol. She denies any recent illness, any change in BM. She did have some vomiting no nausea now. Today she is feeling better and the pain is improved. Past Medical History Past Medical History: Coronary Artery Disease (CAD), Cancer, Deep Vein Thro mbosis (DVT), GERD/Reflux, Hyperlipidemia, Hypertension, Thyroid Disorder Additional Past Medical History / Comment(s): Squamous cell carcinoma of rectum area diagnosed in 2019, resolved. DVT right leg, chronic thrombus right popliteal vein, pancreatitis, shingles, hypothyroid. History of Any Multi-Drug Resistant Organisms: None Reported Past Surgical History: Coronary Bypass/CABG, Heart Catheterization Additional Past Surgical History / Comment(s): Deviated septum repair Past Anesthesia/Blood Transfusion Reactions: No Reported Reaction Additional Past Anesthesia/Blood Transfusion Reaction / Comm: Denies reactions. Smoking Status: Never smoker - Past Family History Mother Family Medical History: No Reported History Medications and Allergies Home Medications Medication Instructions Recorded Confirmed Type carvediloL [Coreg] 6.25 mg PO BID-W/MEALS 11/30/15 10/21/20 History Aspirin 81 mg PO DAILY 02/13/18 10/21/20 History Rosuvastatin [Crestor] 20 mg PO SUTUTHSA 02/13/18 10/21/20 History Omeprazole 40 mg PO HS 05/29/18 10/21/20 History Losartan [Cozaar] 25 mg PO DAILY 01/27/19 10/21/20 History Omeprazole 20 mg PO QAM 01/27/19 10/21/20 History Acetaminophen [Tylenol Arthritis] 650 mg PO Q6H PRN 10/21/20 10/21/20 History Apixaban [Eliquis] 2.5 mg PO BID 10/21/20 10/21/20 History Levothyroxine Sodium 25 mcg PO DAILY 10/21/20 10/21/20 History Allergies Allergy/AdvReac Type Severity Reaction Status Date / Time Folic acid antagonists AdvReac Unknown Uncoded 10/21/20 07:05 Surgical - Exam Osteopathic Statement: *. No significant issues noted on an osteopathic structural exam other than those noted in the History and Physical/Consult. Vital Signs Temp Pulse Resp BP Pulse Ox 98 F 70 18 131/77 96 10/20/20 23:47 10/20/20 23:47 10/20/20 23:47 10/20/20 23:47 10/20/20 23:47 - General well developed, well nourished, no distress - Respiratory normal expansion, normal respiratory effort - Abdomen Abdomen: soft, non tender - Psychiatric oriented to time, oriented to person, oriented to place Results - Labs 10/21/20 05:24 10/22/20 05:14 Abnormal Lab Results - Last 24 Hours (Table) 10/22/20 Range/Units 05:14 Chloride 109 H (98-107) mmol/L Carbon Dioxide 21 L (22-30) mmol/L Calcium 7.6 L (8.4-10.2) mg/dL Total Protein 5.6 L (6.3-8.2) g/dL Albumin 3.0 L (3.5-5.0) g/dL Amylase 513 H* (30-110) U/L Lipase 3459 H (23-300) U/L Diabetes panel 10/22/20 Range/Units 05:14 Sodium 138 (137-145) mmol/L Potassium 4.1 (3.5-5.1) mmol/L Chloride 109 H (98-107) mmol/L Carbon Dioxide 21 L (22-30) mmol/L BUN 16 (7-17) mg/dL Creatinine 1.00 (0.52-1.04) mg/dL Glucose 77 (74-99) mg/dL Calcium 7.6 L (8.4-10.2) mg/dL AST 26 (14-36) U/L ALT 30 (4-34) U/L Alkaline Phosphatase 81 (38-126) U/L Total Protein 5.6 L (6.3-8.2) g/dL Albumin 3.0 L (3.5-5.0) g/dL Calcium panel 10/22/20 Range/Units 05:14 Calcium 7.6 L (8.4-10.2) mg/dL Albumin 3.0 L (3.5-5.0) g/dL Pituitary panel 10/22/20 Range/Units 05:14 Sodium 138 (137-145) mmol/L Potassium 4.1 (3.5-5.1) mmol/L Chloride 109 H (98-107) mmol/L Carbon Dioxide 21 L (22-30) mmol/L BUN 16 (7-17) mg/dL Creatinine 1.00 (0.52-1.04) mg/dL Glucose 77 (74-99) mg/dL Calcium 7.6 L (8.4-10.2) mg/dL Adrenal panel 10/22/20 Range/Units 05:14 Sodium 138 (137-145) mmol/L Potassium 4.1 (3.5-5.1) mmol/L Chloride 109 H (98-107) mmol/L Carbon Dioxide 21 L (22-30) mmol/L BUN 16 (7-17) mg/dL Creatinine 1.00 (0.52-1.04) mg/dL Glucose 77 (74-99) mg/dL Calcium 7.6 L (8.4-10.2) mg/dL Total Bilirubin 0.3 (0.2-1.3) mg/dL AST 26 (14-36) U/L ALT 30 (4-34) U/L Alkaline Phosphatase 81 (38-126) U/L Total Protein 5.6 L (6.3-8.2) g/dL Albumin 3.0 L (3.5-5.0) g/dL Assessment and Plan Assessment: Pancreatitis of unknown etiology Plan: Patient does not have any gallstones or signs of cholecystitis on any imaging. Her labs were not consistent with a biliary pancreatitis. No plans for acute surgical intervention at this time. Continue evaluation per GI for autoimmune pancreatitis
--- NOTE | 2020-10-22 16:53 | P.PN ---
Subjective Progress Note Date: 10/22/20 Principal diagnosis: Pancreatitis C 75-year-old pleasant white female who was transferred from [facility] for acute pancreatitis. The patient went to [facility] for complaints of severe epigastric pain which started yesterday at 3 AM. She had associated nausea and vomiting. Admission lipase was greater than 20,000 and amylase was 2274. She reports her pain is improving. She denies any nausea or vomiting. Her amylase and lipase are trending down. Today's amylase is 513, and lipase 3459. LFTs remain normal. Objective - Vital Signs Vital signs: Vital Signs Temp 98.5 F 10/22/20 07:17 Pulse 88 10/22/20 07:31 Resp 16 10/22/20 07:17 BP 131/79 10/22/20 07:17 Pulse Ox 91 L 10/22/20 07:17 Intake & Output 10/21/20 10/22/20 10/22/20 18:59 06:59 18:59 Output Total 500 400 100 Balance -500 -400 -100 Output: Urine 500 400 100 Other: Voiding Method Toilet Toilet - Exam General appearance: The patient is alert, oriented, appears in no acute distress. HET: Head is normocephalic and atraumatic. Conjunctiva pink. Sclera anicteric. Neck: Supple without lymphadenopathy. Abdomen: Soft, right upper quadrant and epigastric tenderness, nondistended with bowel sounds. No guarding or rigidity. Extremities: Normal skin color and turgor. No pedal edema Skin: No rashes, no jaundice Neurological: No focal deficits. Alert and oriented 3. - Labs CBC & Chem 7: 10/21/20 05:24 10/22/20 05:14 Labs: Abnormal Lab Results - Last 24 Hours (Table) 10/21/20 10/21/20 10/22/20 Range/Units 00:20 05:24 05:14 Chloride 109 H (98-107) mmol/L Carbon Dioxide 21 L (22-30) mmol/L Calcium 7.6 L (8.4-10.2) mg/dL Total Protein 5.6 L (6.3-8.2) g/dL Albumin 3.0 L (3.5-5.0) g/dL Amylase 2274 H* 1947 H* 513 H* (30-110) U/L Lipase >01569 H 3459 H (23-300) U/L Assessment and Plan (1) Acute pancreatitis Narrative/Plan: Patient who presented to the hospital with acute onset of severe epigastric pain that started 2 days ago associated with nausea and vomiting and noted to have elevated amylase and lipase consistent with acute pancreatitis. The patient had no prior history of acute pancreatitis in the past. CT of the abdomen as well as ultrasound of the abdomen showed changes consistent with acute pancreatitis, but no evidence of gallstones or biliary ductal dilation. The patient has no history of alcohol abuse. At this time etiology of pancreatitis remains unclear, but continue to investigate. IgG and PATRICIA ordered and pending. Amylase and lipase continued to trend down. Fasting triglyceride clefted at [facility], 74. Current Visit: Yes Status: Acute Code(s): K85.90 - ACUTE PANCREATITIS WITHOUT NECROSIS OR INFECTION, UNSP SNOMED Code(s): 481964357 Plan: 1. Supportive care 2. Continue IV hydration palpable decreased to 100 mL per hour 3. Patient may have clear liquid diet 4. Continue pain management per primary medicine team 5. IgG and PATRICIA ordered and pending 6. Repeat amylase and lipase daily Thank you for this consultation, we will continue to follow Dr. Krzysztof Licona I agree with the dictator's note, documented as a scribe by Jessica Nuno.
[2020-10-22 19:47] LABS: Basophils % (A) 0 %; Eosinophils # (A) 0.3 k/uL (0-0.7); Eosinophils % (A) 3 %; HCT 27.3 % (34.0-46.0); Hypochromasia Slight; Lymphocytes % (A) 11 %; MCHC 31.5 g/dL (31.0-37.0); MCV 85.7 fL (80.0-100.0); Mean Platelet Volume 7.1; Monocytes # (A) 0.7 k/uL (0-1.0); Monocytes % (A) 8 %; Neutrophils # (A) 6.7 k/uL (1.3-7.7); Neutrophils % (A) 77 %; Platelet Count 234 k/uL (150-450); RBC 3.18 m/uL (3.80-5.40); RDW 15.5 % (11.5-15.5); WBC 8.7 k/uL (3.8-10.6)
[2020-10-22 19:49] LABS: HGB 8.6 gm/dL (11.4-16.0)
[2020-10-22] MEDS: ACETAMINOPHEN TAB 325 MG TAB PO PRN (20:21)
[2020-10-22 22:18] LABS: Appearance,Urine Cloudy (Clear); Bacteria,Urine Rare /hpf; Bilirubin,Urine Negative (Negative); Blood,Urine Negative (Negative); Color,Urine Yellow; Glucose,Urine (UA) Negative (Negative); Ketones,Urine Negative (Negative); Leukocyte Esterase,Urine Small (Negative); Mucus,Urine Moderate /hpf; Nitrite,Urine Negative (Negative); PH, Urine 5.5 (5.0-8.0); Protein,Urine 1+ (Negative); RBC,Urine 1 /hpf (0-5); Specific Gravity,Urine 1.024 (1.001-1.035); Squamous Epithelial Cell,Urine 8 /hpf (0-4); Urobilinogen,Urine <2.0 mg/dL (<2.0); WBC,Urine 10 /hpf (0-5)
--- NOTE | 2020-10-22 23:20 | XR ---
EXAMINATION TYPE: XR chest 1V portable DATE OF EXAM: 10/22/2020 COMPARISON: 10/20/2020 HISTORY: Short of breath TECHNIQUE: FINDINGS: There is no heart failure nor confluent pneumonic infiltrate. There is right central venous catheter with tip in the superior vena cava. There are sternal wires. There is no pleural effusion. Bony thorax appears intact. IMPRESSION: No active cardiopulmonary disease. No change.
[2020-10-23] MEDS: HYDROmorphone 1 MG/ML 1 ML SYRINGE IVP PRN ×4 (02:01→20:10)
[2020-10-23] MEDS: SODIUM CHLORIDE 0.9% 1,000 ML IV SCH ×2 (06:16→08:41)
[2020-10-23] MEDS: LEVOTHYROXINE 25 MCG TAB PO SCH (06:40)
[2020-10-23] MEDS: ACETAMINOPHEN TAB 325 MG TAB PO PRN ×3 (06:54→20:09)
[2020-10-23 08:02] LABS: Basophils % (A) 0 %; Eosinophils # (A) 0.4 k/uL (0-0.7); Eosinophils % (A) 4 %; HCT 27.2 % (34.0-46.0); HGB 8.7 gm/dL (11.4-16.0); Hypochromasia Slight; Lymphocytes # (A) 0.8 k/uL (1.0-4.8); Lymphocytes % (A) 9 %; MCH 27.3 pg (25.0-35.0); MCV 85.5 fL (80.0-100.0); Mean Platelet Volume 6.6; Monocytes # (A) 0.8 k/uL (0-1.0); Monocytes % (A) 9 %; Neutrophils # (A) 6.8 k/uL (1.3-7.7); Neutrophils % (A) 76 %; Platelet Count 224 k/uL (150-450); RBC 3.18 m/uL (3.80-5.40); RDW 15.5 % (11.5-15.5); WBC 8.9 k/uL (3.8-10.6)
[2020-10-23 08:10] LABS: Albumin 2.9 g/dL (3.5-5.0); Calcium 7.8 mg/dL (8.4-10.2); Potassium 3.8 mmol/L (3.5-5.1); Total Bilirubin 0.4 mg/dL (0.2-1.3); Total Protein 5.5 g/dL (6.3-8.2)
[2020-10-23] MEDS: PANTOPRAZOLE 40 MG/10 ML VIAL IV SCH (08:38)
[2020-10-23] MEDS: ASPIRIN 81 MG PO SCH (08:39)
[2020-10-23] MEDS: LOSARTAN 25 MG TAB PO SCH (08:39)
[2020-10-23] MEDS: carvediloL 6.25 MG TAB PO SCH ×2 (08:39→17:36)
[2020-10-23] MEDS: ENOXAPARIN 40 MG/0.4 ML SYRINGE SQ SCH (08:39)
--- NOTE | 2020-10-23 11:13 | P.PN ---
Subjective Progress Note Date: 10/23/20 Principal diagnosis: Pancreatitis This is a 75-year-old pleasant white female who was transferred from [facility] for acute pancreatitis. The patient went to [facility] for complaints of severe epigastric pain which started yesterday at 3 AM. She had associated nausea and vomiting. Admission lipase was greater than 20,000 and amylase was 2274. Today she was seen and examined sitting up in the bedside chair. She denies any nausea or vomiting. Abdominal pain is improving significantly, she is going 5-6 hours between pain medication. She has been tolerating clear liquid diet. Lipase has normalized. PATRICIA and IgG4 negative. Objective - Vital Signs Vital signs: Vital Signs Temp 98.3 F 10/23/20 08:00 Pulse 73 10/23/20 08:00 Resp 18 10/23/20 08:00 BP 148/73 10/23/20 08:00 Pulse Ox 94 L 10/23/20 08:00 Intake & Output 10/22/20 10/23/20 10/23/20 18:59 06:59 18:59 Intake Total 960 1000 Output Total 325 415 100 Balance 635 585 -100 Intake: Intake, IV Titration 700 Amount Sodium Chloride 0.9% 1, 400 000 ml @ 50 mls/hr IV . Q20H [facility] Rx#:[id number] cefTRIAXone 1 gm In 300 Sodium Chloride 0.9% 50 ml @ 100 mls/hr IVPB Q24H [facility] Rx#:[id number] Oral 960 300 Output: Urine 325 415 100 Other: Voiding Method Toilet - Exam General appearance: The patient is alert, oriented, appears in no acute distress. HET: Head is normocephalic and atraumatic. Conjunctiva pink. Sclera anicteric. Neck: Supple without lymphadenopathy. Abdomen: Soft, mild right upper quadrant and epigastric tenderness, nondistended with bowel sounds. No guarding or rigidity. Extremities: Normal skin color and turgor. No pedal edema Skin: No rashes, no jaundice Neurological: No focal deficits. Alert and oriented 3. - Labs CBC & Chem 7: 10/23/20 07:34 10/23/20 07:34 Labs: Abnormal Lab Results - Last 24 Hours (Table) 10/22/20 10/22/20 10/23/20 Range/Units 19:34 21:30 07:34 RBC 3.18 L (3.80-5.40) m/uL Hgb 8.6 L D (11.4-16.0) gm/dL Hct 27.3 L (34.0-46.0) % Lymphocytes # (1.0-4.8) k/uL Sodium 135 L (137-145) mmol/L Chloride 108 H (98-107) mmol/L Carbon Dioxide 20 L (22-30) mmol/L Calcium 7.8 L (8.4-10.2) mg/dL Total Protein 5.5 L (6.3-8.2) g/dL Albumin 2.9 L (3.5-5.0) g/dL Urine Appearance Cloudy H (Clear) Urine Protein 1+ H (Negative) Ur Leukocyte Esterase Small H (Negative) Urine WBC 10 H (0-5) /hpf Ur Squamous Epith Cells 8 H (0-4) /hpf Urine Bacteria Rare H (None) /hpf Urine Mucus Moderate H (None) /hpf 10/23/20 Range/Units 07:34 RBC 3.18 L (3.80-5.40) m/uL Hgb 8.7 L (11.4-16.0) gm/dL Hct 27.2 L (34.0-46.0) % Lymphocytes # 0.8 L (1.0-4.8) k/uL Sodium (137-145) mmol/L Chloride (98-107) mmol/L Carbon Dioxide (22-30) mmol/L Calcium (8.4-10.2) mg/dL Total Protein (6.3-8.2) g/dL Albumin (3.5-5.0) g/dL Urine Appearance (Clear) Urine Protein (Negative) Ur Leukocyte Esterase (Negative) Urine WBC (0-5) /hpf Ur Squamous Epith Cells (0-4) /hpf Urine Bacteria (None) /hpf Urine Mucus (None) /hpf Microbiology - Last 24 Hours (Table) 10/22/20 21:30 Urine Culture - Preliminary Urine,Clean Catch Assessment and Plan (1) Acute pancreatitis Narrative/Plan: Patient who presented to the hospital with acute onset of severe epigastric pain that started 2 days ago associated with nausea and vomiting and noted to have el evated amylase and lipase consistent with acute pancreatitis. The patient had no prior history of acute pancreatitis in the past. CT of the abdomen as well as ultrasound of the abdomen showed changes consistent with acute pancreatitis, but no evidence of gallstones or biliary ductal dilation. The patient has no history of alcohol abuse. At this time etiology of pancreatitis remains unclear, but continue to investigate. IgG and PATRICIA ordered and pending. Amylase and lipase continued to trend down. Fasting triglyceride clefted at [facility], 74. Current Visit: Yes Status: Acute Code(s): K85.90 - ACUTE PANCREATITIS WITHOUT NECROSIS OR INFECTION, UNSP SNOMED Code(s): 519284178 Plan: 1. Supportive care 2. Advance to full liquid diet, may advance as tolerated 3. Recommend spacing out pain medication consider switching to oral 5. IgG and PATRICIA ordered and negative 6. Repeat amylase and lipase daily Thank you for this consultation, patient may be discharged home once tolerating her diet with increased oral intake. Dr. Krzysztof Licona I agree with the dictator's note, documented as a scribe by Jessica Nuno.
[2020-10-23] MEDS: DOCUSATE 100 MG CAP PO SCH (11:53)
--- NOTE | 2020-10-23 13:58 | CDI ---
Documentation Clarification Form Date: 10/23/2020 01:39:03 PM From: Flori Yang RN CCDS Admit Date: 10/20/2020 11:47:00 PM Patient Name: Jo-Ann Horta I Visit Number: [id number] Discharge Date: ATTENTION: The Clinical Documentation Specialists (CDI) and [facility] Coding Staff appreciate your assistance in clarifying documentation. Please respond to the clarification below the line at the bottom and electronically sign. The CDI & [facility] Coding staff will review the response and follow-up if needed. Please note: Queries are made part of the Legal Health Record. If you have any questions, please contact the author of this message via ITS. Dr. Lory Hand Conflicting documentation has been found in the medical record: Acute appendicitis is documented in the H&P 3/2. Acute pancreatitis is documented in the PN 10/22 and PN 3/4 History/Risk Factors: 75-year-old female presents to the ED as a transfer from [facility] for evaluation of pancreatitis, with abdominal pain, nausea and vomiting. Documented in the ED Note 10/20. Medical History: CAD; Cancer; DVT; HTN and pancreatitis. Documented in the H&P 3/2. Clinical Indicators: US Gallbladder 10/21: Pancreas wnl, tail is obscured by bowel gas cannot be evaluated. LABS 3: Wbc 8.6; AST 49; ALT 49; Amylase 1947; Lipase >84952. LABS 10/22: IgG1 472.0; IgG2 338.0; IgG3 44.5; IgG4 64.2; PATRICIA Negative. GI Consult 10/21: CT of the abdomen as well as ultrasound of the abdomen showed changes consistent with acute pancreatitis, but no evidence of gallstones or biliary ductal dilation. The patient has no history of alcohol abuse. At this time etiology of pancreatitis remains unclear, but his will be investigated. Treatment: /2 GI Consult above. Meds: 10/20 0.9ns 1L bolus; 10/20 0.9ns 130cc/hr changed 10/21 50cc/hr; 3/2 NPO except ice chips. In your opinion, what is the most clinically appropriate diagnosis for this patient? Acute Pancreatitis Acute Appendicitis Other explanation of clinical findings Unable to determine (no explanation for clinical findings) (Last Revision: November 2017) Acute Pancreatitis MTDD
--- NOTE | 2020-10-23 16:11 | P.PN ---
Subjective Progress Note Date: 10/23/20 Principal diagnosis: Acute pancreatitis 75-year-old female DF for evaluation patient accepted in transfer, with history of hypertension, hyperlipidemia patient accepted from [facility] for evaluation of pancreatitis multiple drug or medications and therapy but no recent chemotherapy. Patient has no significant recent medication changes severe abdominal pain with nausea and vomiting. No fevers. Patient denies history of alcohol abuse. Patient's pain is still about 5 out of 10 Objective - Vital Signs Vital signs: Vital Signs Temp 98.3 F 10/23/20 08:00 Pulse 73 10/23/20 08:00 Resp 18 10/23/20 08:00 BP 148/73 10/23/20 08:00 Pulse Ox 94 L 10/23/20 08:00 Intake & Output 10/22/20 10/23/20 10/23/20 18:59 06:59 18:59 Intake Total 960 1000 Output Total 325 415 100 Balance 635 585 -100 Intake: Intake, IV Titration 700 Amount Sodium Chloride 0.9% 1, 400 000 ml @ 50 mls/hr IV . Q20H [facility] Rx#:[id number] cefTRIAXone 1 gm In 300 Sodium Chloride 0.9% 50 ml @ 100 mls/hr IVPB Q24H [facility] Rx#:[id number] Oral 960 300 Output: Urine 325 415 100 Other: Voiding Method Toilet - Exam - Constitutional General appearance: Present: average body habitus, cooperative, no acute distress - EENT Eyes: Present: anicteric sclerae, EOMI, PERRLA, normal appearance ENT: Present: hearing grossly normal, normal oropharynx Ears: bilateral: normal - Neck Neck: Present: normal ROM. Absent: lymphadenopathy, rigidity, thyromegaly Carotids: negative: bruit present Thyroid: bilateral: normal size, negative: enlarged, nodule - Respiratory Respiratory: bilateral: CTA, negative: rales, rhonchi, wheezing - Cardiovascular Rhythm: regular Heart sounds: normal: S1, S2 Abnormal Heart Sounds: Absent: systolic murmur, diastolic murmur - Gastrointestinal General gastrointestinal: Present: normal bowel sounds, soft. Absent: distended, organomegaly, tenderness - Genitourinary Genitourinary Comment(s): deferred - Integumentary Integumentary: Present: normal turgor. Absent: jaundiced, rash, ulcer - Neurologic Neurologic: Present: CNII-XII intact. Absent: focal deficits - Musculoskeletal Musculoskeletal: Present: gait normal, strength equal bilaterally - Psychiatric Psychiatric: Present: A&O x's 3, appropriate affect, intact judgment & insight - Labs CBC & Chem 7: 10/23/20 07:34 10/23/20 07:34 Labs: Abnormal Lab Results - Last 24 Hours (Table) 10/22/20 10/22/20 10/23/20 Range/Units 19:34 21:30 07:34 RBC 3.18 L (3.80-5.40) m/uL Hgb 8.6 L D (11.4-16.0) gm/dL Hct 27.3 L (34.0-46.0) % Lymphocytes # (1.0-4.8) k/uL Sodium 135 L (137-145) mmol/L Chloride 108 H (98-107) mmol/L Carbon Dioxide 20 L (22-30) mmol/L Calcium 7.8 L (8.4-10.2) mg/dL Total Protein 5.5 L (6.3-8.2) g/dL Albumin 2.9 L (3.5-5.0) g/dL Urine Appearance Cloudy H (Clear) Urine Protein 1+ H (Negative) Ur Leukocyte Esterase Small H (Negative) Urine WBC 10 H (0-5) /hpf Ur Squamous Epith Cells 8 H (0-4) /hpf Urine Bacteria Rare H (None) /hpf Urine Mucus Moderate H (None) /hpf 10/23/20 Range/Units 07:34 RBC 3.18 L (3.80-5.40) m/uL Hgb 8.7 L (11.4-16.0) gm/dL Hct 27.2 L (34.0-46.0) % Lymphocytes # 0.8 L (1.0-4.8) k/uL Sodium (137-145) mmol/L Chloride (98-107) mmol/L Carbon Dioxide (22-30) mmol/L Calcium (8.4-10.2) mg/dL Total Protein (6.3-8.2) g/dL Albumin (3.5-5.0) g/dL Urine Appearance (Clear) Urine Protein (Negative) Ur Leukocyte Esterase (Negative) Urine WBC (0-5) /hpf Ur Squamous Epith Cells (0-4) /hpf Urine Bacteria (None) /hpf Urine Mucus (None) /hpf Microbiology - Last 24 Hours (Table) 10/22/20 21:30 Urine Culture - Preliminary Urine,Clean Catch Assessment and Plan Assessment: 1. Acute appendicitis; etiology unclear - Patient is started on IV fluids, IV pain medications; keep patient nothing by mouth; monitor liver enzymes - Consult GI for further recommendations 2. Hypertension; stable on losartan 25 mg daily 3. Hyperlipidemia; Crestor 20 mg daily 4. Mild transaminitis; we will continue to monitor 5. Hypothyroidism; levothyroxine 25 MCG daily DVT prophylaxis; SCDs/subcu Lovenox CODE STATUS;
[2020-10-23] MEDS: ONDANSETRON 4 MG/2 ML VIAL IVP PRN (20:10)
[2020-10-24] MEDS: ACETAMINOPHEN TAB 325 MG TAB PO PRN ×2 (02:06→14:50)
[2020-10-24] MEDS: HYDROmorphone 1 MG/ML 1 ML SYRINGE IVP PRN ×2 (02:07→06:56)
[2020-10-24] MEDS: SODIUM CHLORIDE 0.9% 1,000 ML IV SCH (02:12)
[2020-10-24] MEDS: LEVOTHYROXINE 25 MCG TAB PO SCH (06:51)
[2020-10-24] MEDS: ONDANSETRON 4 MG/2 ML VIAL IVP PRN (06:56)
[2020-10-24 08:35] VITALS: BP 133/74; PULSE 67; RESP 16; TEMP 98.6
[2020-10-24] MEDS: carvediloL 6.25 MG TAB PO SCH (08:38)
[2020-10-24] MEDS: ENOXAPARIN 40 MG/0.4 ML SYRINGE SQ SCH (08:38)
[2020-10-24] MEDS: PANTOPRAZOLE 40 MG/10 ML VIAL IV SCH (08:38)
[2020-10-24] MEDS: DOCUSATE 100 MG CAP PO SCH (08:38)
[2020-10-24] MEDS: ASPIRIN 81 MG PO SCH (08:39)
[2020-10-24] MEDS: LOSARTAN 25 MG TAB PO SCH (08:39)
--- NOTE | 2020-10-25 12:30 | DS ---
DISCHARGE SUMMARY DATE OF ADMISSION: 10/20/2020 DATE OF DISCHARGE: 10/24/2020 FINAL DIAGNOSIS: 1. Acute pancreatitis, idiopathic. 2. Essential hypertension, on losartan. 3. Hyperlipidemia, on Crestor. 4. Hypothyroidism. Continue with levothyroxine. 5. Obesity with BMI 36.7. Follow weight loss measures as an outpatient. CONSULTATION: Dr. Inocencio Licona from GI. Dr. Anthony from General Surgery. HOSPITAL COURSE: A 75-year-old patient of Dr. Donahue who was accepted from transferred from [facility] for acute pancreatitis. The patient's initial amylase was 2274 and lipase was greater than 20,000. Managed conservatively with IV fluids. Numbers came down to normal. Diet was gradually advanced. Today-doing much better. No abdominal pain. Up and about in the hallway. Diet was advanced. The patient doing well. Questions were answered. Discussion and discharge planning more than 35 minutes. PHYSICAL EXAMINATION: VITAL SIGNS: On examination, temperature 98.6 pulse, respirations 16, blood pressure 133/74, pulse ox 92 percent on room air. LUNGS: Clear to auscultation. CARDIOVASCULAR: 1st and 2nd sounds normal. ABDOMEN: Soft and nontender. PSYCHIATRY: Alert orient x3. Mood and affect normal. INVESTIGATIONS: White count 8.7, hemoglobin 8.6, platelets 234, potassium 4.1, creatinine 1.0. PATRICIA screen negative. Coronavirus PCR-not detected. IgG 1, IgG 2, IgG 3, IgG 4 all within normal limits. Gallbladder ultrasound unremarkable. DISCHARGE MEDICATIONS: 1. Coreg 6.25 mg p.o. b.i.d. 2. Aspirin 81 mg daily. 3. Crestor 20 mg on Tuesday, Tuesday, , Tuesday. 4. Omeprazole 40 mg q.h.s. 5. Cozaar 25 mg daily. 6. Omeprazole 20 mg p.o. daily. 7. Tylenol Arthritis q.6h p.r.n. 8. Eliquis 2.5 mg b.i.d. 9. Levothyroxine 25 mcg a day. 10.Keflex 250 mg q.6h for 3 days. 11.[place] 5 q.6h p.r.n. for 3 days. FOLLOWUP: Follow up with Dr. Donahue in 2 days. Follow up with Dr. Inocencio Licona on 11/13/2020. DIET: Low-fat. MMODL / IJN: [id number] /
== END 2020-10-24 17:54 | disposition home or self-care (01) | DRG 440 ==
LOC: EC 23:36 → 6PED 23:47
PROVIDERS: ADMIT Hospitalist; ATTEND Hospitalist
DX: K85.00 Idiopathic acute pancreatitis without necrosis or infection (principal); E03.9 Hypothyroidism, unspecified; I10 Essential (primary) hypertension; E78.5 Hyperlipidemia, unspecified; K21.9 Gastro-esophageal reflux disease without esophagitis; I25.10 Atherosclerotic heart disease of native coronary artery without angina pectoris; E66.9 Obesity, unspecified; Z68.36 Body mass index [BMI] 36.0-36.9, adult; Z79.01 Long term (current) use of anticoagulants; Z79.82 Long term (current) use of aspirin; Z79.890 Hormone replacement therapy; Z79.899 Other long term (current) drug therapy; Z95.1 Presence of aortocoronary bypass graft; Z87.09 Personal history of other diseases of the respiratory system; Z85.048 Personal history of other malignant neoplasm of rectum, rectosigmoid junction, and anus; Z86.718 Personal history of other venous thrombosis and embolism; Z86.19 Personal history of other infectious and parasitic diseases
CPT/HCPCS: 71045; 76705; 80053; 81001; 82150; 82787; 83615; 83690; 83735; 84100; 85025; 86038; 87086; 87635; 96374; 96375; 99285

== ENCOUNTER → 2020-11-04 | Outpatient (CLI) | payer MEDICARE ==
--- NOTE | 2020-11-04 13:50 | CT ---
EXAMINATION TYPE: CT chest w con DATE OF EXAM: 11/04/2020 COMPARISON: 07/07/2020 and 03/10/2020 HISTORY: 75-year-old female C44.520, F/U for anal skin CA TECHNIQUE: Contiguous axial scanning of the chest after the administration of 80 mL of Isovue 300. C oronal/sagittal reconstructions performed. CT DLP: 370mGycm. Automatic exposure control utilized for a dose reduction. FINDINGS: Median sternotomy wires and post-CABG changes. Right anterior chest wall injection port with catheter tip at the lower SVC. Heart upper limits of normal in size. Aorta normal caliber with mild atherosclerotic arch calcifications and bovine configuration to the ao rtic arch. Left hilar lymph node measures 8 mm versus 7 mm, previously. Right hilar lymph node stable at 1.4 cm. Precarinal lymph node measures 1.3 cm, unchanged. Left tracheobronchial angle lymph node appears increased at 1 cm. Pretracheal lymph node measures 9 mm, unchanged. Right paratracheal lymph node measures 1.7 x 0.8 cm, unchanged. 9 mm left infrahilar bronchial lymph node is unchanged. 4 mm anterior right mid lung pulmonary nodules unchanged. Mild centrilobular emphysema. No consolidat ion or pleural effusion. Moderate-sized hiatal hernia. Visualized upper abdomen shows atherosclerotic calcifications throughou t the abdominal aorta. Bones: Mildly accentuated midthoracic kyphosis. No osseous destructive process. IMPRESSION: 1. Borderline and mildly enlarged mediastinal and hilar lymph nodes are largely unchanged measuring u p to 1.4 cm in the precarinal region. A left hilar lymph node (8 mm now versus 7 mm, previously) and left tracheobronchial angle lymph node (currently 1 cm and previously not well seen) are slightly lar sapna. Continued follow-up as clinically indicated. Otherwise, no supa progression. 2. A 4 mm right mid lung pulmonary nodule is also stable. COPD with mild emphysema. 3. Moderate-sized hiatal hernia.
== END | disposition home or self-care (01) ==
LOC: RADPROMAIN 11:00
PROVIDERS: ATTEND Internal Medicine Hematology & Oncology
DX: J43.9 Emphysema, unspecified (principal); K44.9 Diaphragmatic hernia without obstruction or gangrene; R91.1 Solitary pulmonary nodule; R59.0 Localized enlarged lymph nodes; C44.520 Squamous cell carcinoma of anal skin
CPT/HCPCS: 82565; 84520; 71260; 36415; J1642; Q9967

== ENCOUNTER → 2021-03-03 | Outpatient (CLI) | payer MEDICARE ==
--- NOTE | 2021-03-03 13:51 | CT ---
EXAMINATION TYPE: CT ChestAbdPelvis w con DATE OF EXAM: 03/03/2021 COMPARISON: CT chest 11/04/2020, CT abdomen pelvis 10/20/2020, CT 07/07/2020 HISTORY: squamous cell carcinoma of anal skin CT DLP: 1429.1 mGycm Automated exposure control for dose reduction was used. CONTRAST: CT scan of the chest, abdomen and pelvis is performed with Oral Contrast and with IV Contrast, patien t injected with 80 mL of Isovue 300. FINDINGS: LUNGS: The lungs are stable, there is no concerning parenchymal mass or nodule identified. There is no pleural effusion or pneumothorax seen. The tracheobronchial tree is patent. MEDIASTINUM: Retrocaval pretracheal node shows borderline enlargement, axial image 19, similar findin gs to prior. No pericardial effusion is seen. Patient is post median sternotomy, coronary artery c alcifications are again seen AORTA: No significant abnormality is seen. OTHER: Hiatal hernia with partial intrathoracic stomach is again noted. LIVER/GB: No significant abnormality is appreciated. PANCREAS: No significant abnormality is seen. SPLEEN: No significant abnormality is seen. ADRENALS: No significant abnormality is seen. KIDNEYS: No significant change is seen. REPRODUCTIVE ORGANS: No gross abnormality seen. BOWEL: No significant abnormality is seen. FREE AIR: No Free Air visible. ASCITES: None seen. RETROPERITONEAL ADENOPATHY: No retroperitoneal adenopathy is seen. LYMPH NODES: No greater than 1 cm abdominal or pelvic lymph nodes are appreciated. URINARY BLADDER: No significant abnormality is seen. PELVIC ADENOPATHY: None visualized. OSSEOUS STRUCTURES: No significant abnormality is seen. IMPRESSION: No significant interval change. Stable exam.
--- NOTE | 2021-03-03 14:16 | US ---
EXAMINATION TYPE: US venous doppler duplex LE RT DATE OF EXAM: 03/03/2021 11:26 AM COMPARISON: US 07/18/2020 CLINICAL HISTORY: I82.491 DVT. F/U previous right leg chronic DVT/ pt currently on blood thinners SIDE PERFORMED: Right TECHNIQUE: The lower extremity deep venous system is examined utilizing real time linear array sonog carlene with graded compression, doppler sonography and color-flow sonography. VESSELS IMAGED: Common Femoral Vein Deep Femoral Vein Greater Saphenous Vein * Femoral Vein Popliteal Vein Proximal Calf Veins (* superficial vessels) Right Leg: Positive for DVT, chronic non-occluding thrombus within popliteal veins appear to have im proved when compared to previous. Cyst popliteal fossa= 6.5 x 2.0 x 4.4 cm IMPRESSION: Positive for DVT, chronic non-occluding thrombus within popliteal veins appear to have improved when compared to previous. Cyst popliteal fossa= 6.5 x 2.0 x 4.4 cm
== END | disposition home or self-care (01) ==
LOC: RADPROMAIN 10:45
PROVIDERS: ATTEND Internal Medicine Hematology & Oncology
DX: I82.531 Chronic embolism and thrombosis of right popliteal vein (principal); M71.21 Synovial cyst of popliteal space [Baker], right knee
CPT/HCPCS: 82565; 84520; 93971; 71260; 74177; J1642; Q9967

== ENCOUNTER → 2021-08-05 | Outpatient (CLI) | payer MEDICARE ==
--- NOTE | 2021-08-07 12:09 | MM ---
Reason for exam: screening (asymptomatic). Last mammogram was performed 1 year and 3 months ago. History: Patient is postmenopausal, has history of other cancer at age 73, and had first child at age 36. Family history of breast cancer. Physical Findings: A clinical breast exam by your physician is recommended on an annual basis and results should be correlated with mammographic findings. MG 3D Screening Mammo W/Cad Bilateral CC and MLO view(s) were taken. Prior study comparison: May 01, 2020, bilateral MG 3d screening mammo w/cad. October 18, 2018, left breast MG work up mamm w CAD LT. There are scattered fibroglandular densities. There is chronic nodularity in the left breast. Benign vascular calcifications. No significant changes when compared with prior studies. ASSESSMENT: Benign, BI-RAD 2 RECOMMENDATION: Routine screening mammogram of both breasts in 1 year.
== END | disposition home or self-care (01) ==
LOC: RADMAMWWP 16:11
PROVIDERS: ATTEND Family Medicine
DX: Z12.31 Encounter for screening mammogram for malignant neoplasm of breast (principal); Z78.0 Asymptomatic menopausal state
CPT/HCPCS: 77063; 77067

== ENCOUNTER → 2021-09-16 | Outpatient (CLI) | payer MEDICARE ==
--- NOTE | 2021-09-16 12:59 | US ---
EXAMINATION TYPE: US venous doppler duplex LE RT DATE OF EXAM: 09/16/2021 12:49 PM COMPARISON: US CLINICAL HISTORY: I82.491 EMBOLISM AND THROMBOSIS OF DEEP VEIN RT LOWER EXT. F/U prior DVT right leg, pt currently on blood thinners SIDE PERFORMED: Right TECHNIQUE: The lower extremity deep venous system is examined utilizing real time linear array sonog carlene with graded compression, doppler sonography and color-flow sonography. VESSELS IMAGED: Common Femoral Vein Deep Femoral Vein Greater Saphenous Vein * Femoral Vein Popliteal Vein Small Saphenous Vein * Proximal Calf Veins (* superficial vessels) Right Leg: Non-occluding, chronic thrombus within right popliteal veins- unchanged from previous ult rasounds Fenton's cyst right popliteal fossa, smaller in size when compared to previous= 4.1 x 1.9 x 2.4 cm IMPRESSION: Chronic thymus right lower extremity without evidence for acute DVT at this time.
== END | disposition home or self-care (01) ==
LOC: RADUSWWP 12:30
PROVIDERS: ATTEND Internal Medicine Hematology & Oncology
DX: I82.491 Acute embolism and thrombosis of other specified deep vein of right lower extremity (principal); M71.21 Synovial cyst of popliteal space [Baker], right knee

== ENCOUNTER → 2021-09-18 | Outpatient (CLI) | payer MEDICARE ==
--- NOTE | 2021-09-18 12:51 | US ---
EXAMINATION TYPE: US medicare screen for AAA DATE OF EXAM: 09/18/2021 COMPARISON: CT CLINICAL HISTORY: Z13.6 Encounter for screening for cardiovascular. Screening for AAA EXAM MEASUREMENTS: Abdominal Aorta: Proximal: 2.2 x 2.2 cm Mid: 1.9 x 1.9 cm Distal: 1.8 x 1.7 cm Bifurcation: RICHARD: 1.1 x 0.9 cm KALE: 1.0 x 1.1 cm No evidence of AAA, extensive atherosclerosis causing shadowing IMPRESSION: 1. No aneurysmal dilatation screening abdominal aortic ultrasound
== END | disposition home or self-care (01) ==
LOC: RADUSWWP 12:21
PROVIDERS: ATTEND Family Medicine
DX: Z13.6 Encounter for screening for cardiovascular disorders (principal)
CPT/HCPCS: 76706

== ENCOUNTER → 2022-05-21 | Outpatient (CLI) | payer MEDICARE ==
--- NOTE | 2022-05-23 10:06 | CT ---
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 CT DLP: 3137 mGycm. Automated Exposure Control for Dose Reduction was Utilized. CONTRAST: CT scan of the thorax, abdomen and pelvis is performed with oral and without and with IV Contrast, pa tient injected with 70cc mL of Isovue 300. FINDINGS: LUNGS: No new or enlarging greater than 5 mm noncalcified parenchymal mass or nodule identified. Mild central groundglass opacities consistent with mild edema. There is no pleural effusion or pneumoth orax seen. The tracheobronchial tree is patent. MEDIASTINUM: There are persistent enlarged mediastinal lymph nodes. Largest paracarinal level measure s 1.9 x 1.7 cm or could reflect 2 adjacent confluent lymph nodes is not significantly changed from se veral prior CTs On axial image 20. Prominent prevascular and AP window lymph nodes show similar appea esteban. Prominent subcarinal lymph node is stable axial image 26 current study. Stable higher right pa ratracheal lymph node axial image 17 from several prior CTs. No pericardial effusion is seen. Heart size stable and upper limits of normal. Overlying sternal wires redemonstrated. OTHER: Stable right subclavian Mediport catheter. LIVER/GB: No significant abnormality is appreciated. PANCREAS: No significant abnormality is seen. SPLEEN: Stable subcentimeter posterior superior lesion in the spleen axial image 47 current study. ADRENALS: No significant abnormality is seen. KIDNEYS: No significant abnormality is seen. BOWEL: Stable moderate-sized hiatal hernia. Oral contrast reaches level of rectum on current study. N o suspicious small or large bowel dilatation. GENITAL ORGANS: Anteverted uterus. Scattered pelvic phleboliths. LYMPH NODES: No greater than 1cm abdominal or pelvic lymph nodes are appreciated. OSSEOUS STRUCTURES: Facet arthropathy in the lower lumbar spine. OTHER: Moderate calcified plaque of the aorta extends into branch vessels. IMPRESSION: Overall stable findings. Stable thoracic adenopathy from most recent CT and several older CTs was hypermetabolic on October 2018 PET/CT. No suspicious new or enlarging masses or adenopathy.
== END ==
LOC: RADCTMAIN 12:16
PROVIDERS: ATTEND Internal Medicine Hematology & Oncology
DX: C44.520 Squamous cell carcinoma of anal skin (principal); I82.491 Acute embolism and thrombosis of other specified deep vein of right lower extremity; E86.0 Dehydration
CPT/HCPCS: 82565; 84520; 71270; 74178; 36415; J1642; Q9967 ×2

== ENCOUNTER → 2022-11-16 | Outpatient (CLI) | payer MEDICARE ==
--- NOTE | 2022-11-18 09:15 | MM ---
Reason for Exam: Screening (asymptomatic). Last mammogram was performed 1 year(s) and 3 month(s) ago. Patient History: Menarche at age 14. First Full-Term at age 36. Late child-bearing (after 30). Postmenopausal. Other cancer, age 73. Maternal aunt had breast cancer at or over age 50. Risk Values: Sophia 5 year model risk: 2.4%. Prior Study Comparison: 10/18/2018 Left Diagnostic Mammogram, [facility]. 05/01/2020 Bilateral Screening Mammogram, [facility]. 08/05/2021 Bilateral Screening Mammogram, [facility]. Tissue Density: There are scattered fibroglandular densities. Findings: Analyzed By CAD. Pattern appears symmetrical and stable. Benign vascular calcifications bilaterally. There are scattered benign round calcifications. No significant interval change is evident. Stable chronic nodule within the left breast is present. No suspicious groups of microcalcifications, spiculated or lobular masses, architectural distortion or other secondary signs of malignancy are mammographically apparent. Overall Assessment: Benign, BI-RAD 2 Management: Screening Mammogram of both breasts in 1 year. A negative mammogram report should not preclude additional follow up of suspicious palpable abnormalities. Patient should continue monthly self breast exam. A clinical breast exam by your physician is recommended on an annual basis and results should be correlated with mammographic findings. Electronically signed and approved by: Jeovany Valle D.O. Radiologis
== END | disposition home or self-care (01) ==
LOC: RADMAMWWP 16:04
PROVIDERS: ATTEND Family Medicine
DX: Z12.31 Encounter for screening mammogram for malignant neoplasm of breast (principal); Z78.0 Asymptomatic menopausal state; Z80.3 Family history of malignant neoplasm of breast
CPT/HCPCS: 77063; 77067

== ENCOUNTER → 2022-12-17 | Outpatient (CLI) | payer MEDICARE ==
--- NOTE | 2022-12-17 15:52 | BD ---
EXAMINATION TYPE: Axial Bone Density DATE OF EXAM: 12/17/2022 CLINICAL HISTORY: 77 years old Female. ICD-10 CODE: Z13.820 ENCOUNTER FOR SCREENING FOR OSTEOPOROSIS Height: 61 Weight: 208.1 FRAX RISK QUESTIONS: Alcohol (3 or more units per day): no Family History (Parent hip fracture): no Glucocorticoids (More than 3mos): no (Ex: prednisone, prednisolone, methylprednisolone, dexamethasone, and hydrocortisone). History of Fracture in Adulthood: yes Secondary Osteoporosis: 1. Type 1 Diabetes: no 2. Hyperthyroidism: no 3. Menopause before 45: no 4. Malnutrition: no 5. Chronic liver disease: no Rheumatoid Arthritis: no Current Tobacco Use: no RISK FACTORS HISTORY OF: History of Wrist Fracture: left When: 16 years Surgery to Spine/Hip(right/left)/Wrist (right/left): no Family History of Osteoporosis: no Diet low in dairy products/other sources of calcium: no Postmenopausal woman: yes Lost more than 2 inches in height since high school: no MEDICATIONS: Thyroid Medications: levothyroxine How Lon year Additional History: EXAM MEASUREMENTS: Bone mineral densitometry was performed using the [employer] System. Bone mineral density as measured about the Lumbar spine is: ----- L1-L4(G/cm2): 1.131 T Score Values are as follows: ----- L1: -0.3 ----- L2: -0.9 ----- L3: -0.6 ----- L4: -0.2 ----- L1-L4: -0.4 Z Score Values are as follows: ----- L1: 0.5 ----- L2: -0.1 ----- L3: 0.2 ----- L4: 0.6 ----- L1-L4: 0.4 Bone mineral density has: increased 22.3 % since study of: 03.16.2003 Bone mineral density about the R hip (g/cm2): 0.83 Bone mineral density about the L hip (g/cm2): 0.899 T Score values are as follows: -----R Neck: -1.8 -----L Neck: -2.0 -----R Total: -1.0 -----L Total: -0.9 Z Score values are as follows: -----R Neck: -0.4 -----L Neck: -0.6 -----R Total: 0.1 -----L Total: 0.3 Bone mineral density has: decreased -0.3 % since study of: 03.16.2003 FRAX%s: The graph provided illustrates a 18.5% chance for a major osteoporotic fx and a 4.3% chance f or the hips probability for fx in 10 years time. IMPRESSION: Osteopenia (T Score between -2.5 and -1). There is slightly increased risk of fracture and the patient may be considered for treatment. Re-Screen 2-5 years. NOTE: T-SCORE=SD OF THE YOUNG ADULT MEAN.
== END | disposition home or self-care (01) ==
LOC: RADBDWWP 14:48
PROVIDERS: ATTEND Family Medicine
DX: Z13.820 Encounter for screening for osteoporosis (principal); M85.89 Other specified disorders of bone density and structure, multiple sites; Z78.0 Asymptomatic menopausal state
CPT/HCPCS: 77080

== ENCOUNTER 2023-10-29 00:02 | Emergency (ER) | payer MEDICARE ==
--- NOTE | 2023-10-29 00:19 | ED ---
Nausea/Vomiting/Diarrhea HPI - General Chief complaint: Nausea/Vomiting/Diarrhea Stated complaint: ABD pain Time Seen by Provider: 10/29/23 00:16 Source: EMS Mode of arrival: EMS - History of Present Illness Initial comments: Jo-Ann is a 78yo F with PMH of GERD and distant history of rectal cancer and GI bleeding requiring blood transfusions. Patient presents ER today for evaluation of 6 hours of nausea and vomiting with blood-tinged vomitus. Patient states that she suddenly felt nauseated around 6 PM she had multiple episodes of brown and blood-tinged vomitus since that time. She became concerned about persistent vomiting and possibility of blood loss so she called EMS. EMS gave patient Zofran prior to arrival and she had no further vomiting. - Related Data Home Medications Medication Instructions Recorded Confirmed carvediloL [Coreg] 6.25 mg PO BID-W/MEALS 11/30/15 05/07/22 Aspirin 81 mg PO DAILY 02/13/18 05/07/22 Rosuvastatin [Crestor] 20 mg PO SUTUTHSA 02/13/18 05/07/22 Omeprazole 40 mg PO HS 05/29/18 05/07/22 Losartan [Cozaar] 25 mg PO DAILY 01/27/19 05/07/22 Omeprazole 20 mg PO QAM 01/27/19 05/07/22 Acetaminophen [Tylenol Arthritis] 650 mg PO Q6H PRN 10/21/20 05/07/22 Apixaban [Eliquis] 2.5 mg PO BID 10/21/20 05/07/22 Levothyroxine Sodium 25 mcg PO DAILY 10/21/20 05/07/22 Previous Rx's Medication Instructions Recorded HYDROcodone/APAP 5-325MG [[place] 1 tab PO Q6HR PRN 3 Days #12 tab 10/23/20 5-325] Ondansetron Odt [Zofran Odt] 4 mg PO Q8HR PRN #12 tab 10/29/23 Allergies Allergy/AdvReac Type Severity Reaction Status Date / Time Folic acid antagonists AdvReac Unknown Uncoded 10/29/23 00:09 Review of Systems ROS Statement: Those systems with pertinent positive or pertinent negative responses have been documented in the HPI. ROS Other: All systems not noted in ROS Statement are negative. Past Medical History Past Medical History: Coronary Artery Disease (CAD), Cancer, Deep Vein Thrombosis (DVT), GERD/Reflux, Hyperlipidemia, Hypertension, Thyroid Disorder Additional Past Medical History / Comment(s): Squamous cell carcinoma of rectum area diagnosed in 2019, resolved. DVT right leg, chronic thrombus right popliteal vein, pancreatitis, shingles, hypothyroid. History of Any Multi-Drug Resistant Organisms: None Reported Past Surgical History: Coronary Bypass/CABG, Heart Catheterization Additional Past Surgical History / Comment(s): Deviated septum repair Past Anesthesia/Blood Transfusion Reactions: No Reported Reaction Additional Past Anesthesia/Blood Transfusion Reaction / Comment(s): Denies reactions. Past Psychological History: Depression Smoking Status: Never smoker Past Alcohol Use History: None Reported Past Drug Use History: None Reported - Past Family History Mother Family Medical History: No Reported History General Exam - General Exam Comments Initial Comments: Physical Exam GENERAL: Patient is well-developed and well-nourished. Patient is nontoxic and well-hydrated and is in no distress. HENT: Normocephalic, Atraumatic. EYES: PERRL, EOMI No conjunctival pallor PULMONARY: Unlabored respirations. CARDIOVASCULAR: RRR Warm and well perfused extremities ABDOMEN: Non-distended, nontender SKIN: No rashes or bruising : Deferred NEUROLOGIC: Alert and oriented Normal speech Normal gait MUSCULOSKELETAL: Moving all extremities with no apparent injury PSYCHIATRIC: No SI/HI Course Vital Signs 10/29/23 10/29/23 10/29/23 00:04 00:50 02:31 Temperature 98.7 F Pulse Rate 68 66 73 Respiratory 18 18 16 Rate Blood Pressure 145/72 135/65 125/57 O2 Sat by Pulse 97 98 95 Oximetry 10/29/23 04:38 Temperature Pulse Rate 61 Respiratory 18 Rate Blood Pressure 120/62 O2 Sat by Pulse 98 Oximetry Medical Decision Making - Medical Decision Making Was pt. sent in by a medical professional or institution (, PA, MARKET RESEARCH ANALYST, urgent care, hospital, or senior living...) When possible be specific @ -No Did you speak to anyone other than the patient for history (EMS, parent, family, police, friend...)? What history was obtained from this source @ -No Did you review nursing and triage notes (agree or disagree)? Why? @ -I reviewed and agree with nursing and triage notes Were old charts reviewed (outside hosp., previous admission, EMS record, old EKG, old radiological studies, urgent care reports/EKG's, senior living records)? Report findings @ -No old charts were reviewed Differential Diagnosis (chest pain, altered mental status, abdominal pain women, abdominal pain men, vaginal bleeding, weakness, fever, dyspnea, syncope, headache, dizziness, GI bleed, back pain, seizure, CVA, palpatations, mental health)? @ -Differential Abdominal Pain Women: Appendicitis, Cholecystitis, diverticulosis, ischemic bowel, pancreatitis, hepatitis, UTI, gastroenteritis, AAA, incarcerated hernia, bowel obstruction, constipation, inflammatory bowel, hepatitis, peptic ulcer disease, splenic infarction, perforated viscus, vulvitis, ovarian torsion, PID, kidney stone, placenta abruption, this is not meant to be an all-inclusive list EKG interpreted by me (3pts min.). @ -As above X-rays interpreted by me (1pt min.). @ -None done CT interpreted by me (1pt min.). @ -None done U/S interpreted by me (1pt. min.). @ -None done What testing was considered but not performed or refused? (CT, X-rays, U/S, labs)? Why? @ -None What meds were considered but not given or refused? Why? @ -None Did you discuss the management of the patient with other professionals (professionals i.e. , PA, MARKET RESEARCH ANALYST, lab, RT, psych nurse, social sciences instructor, human capital consultant, teacher, deportation officer, porter sample case)? Give summary @ -No Was smoking cessation discussed for >3mins.? @ -No Was critical care preformed (if so, how long)? @ -No Were there social determinants of health that impacted care today? How? (Homelessness, low income, unemployed, alcoholism, drug addiction, transportation, low edu. Level, literacy, decrease access to med. care, senior living, rehab)? @ -No Was there de-escalation of care discussed even if they declined (Discuss DNR or withdrawal of care, Hospice)? DNR status @ -No What co-morbidities impacted this encounter? (DM, HTN, Smoking, COPD, CAD, Cancer, CVA, ARF, Chemo, Hep., AIDS, mental health diagnosis, sleep apnea, morbid obesity)? @ -None Was patient admitted / discharged? Hospital course, mention meds given and route, prescriptions, significant lab abnormalities, going to OR and other pertinent info. @ -Discharge Patient was seen and evaluated, history was obtained from the patient. Labs were obtained, there is mild leukocytosis likely reactive hemoglobin is stable, no actionable abnormalities noted in the CMP. Results were discussed with the patient who has been here for a number of hours without any additional vomiting she reports she is feeling much better her only complaint now is that the bed is uncomfortable. At this time patient stable for discharge home she will be provided with a prescription for Zofran ODT. Patient advised to have close outpatient follow-up return for any recurrence of hematemesis or development of any new or concerning symptoms. Undiagnosed new problem with uncertain prognosis? @ -No Drug Therapy requiring intensive monitoring for toxicity (Heparin, Nitro, Insulin, Cardizem)? @ -No Were any procedures done? @ -No Diagnosis/symptom? @ -Nausea and vomiting Acute, or Chronic, or Acute on Chronic? @ -Acute Uncomplicated (without systemic symptoms) or Complicated (systemic symptoms)? @ -Uncomplicated Side effects of treatment? @ -No Exacerbation, Progression, or Severe Exacerbation? @ -No Poses a threat to life or bodily function? How? (Chest pain, USA, VT, pneumonia, PE, COPD, DKA, ARF, appy, cholecystitis, CVA, Diverticulitis, Homicidal, Suicidal, threat to staff... and all critical care pts) @ -Unlikely - Lab Data Result diagrams: 10/29/23 00:22 10/29/23 00:22 Lab Results 10/29/23 10/29/23 10/29/23 Range/Units 00:22 00:22 00:22 WBC 10.0 (3.8-10.6) k/uL RBC 4.11 (3.80-5.40) m/uL Hgb 11.9 (11.4-16.0) gm/dL Hct 36.9 (34.0-46.0) % MCV 89.9 (80.0-100.0) fL MCH 29.1 (25.0-35.0) pg MCHC 32.3 (31.0-37.0) g/dL RDW 13.3 (11.5-15.5) % Plt Count 228 (150-450) k/uL MPV 7.8 Neutrophils % 89 % Lymphocytes % 7 % Monocytes % 2 % Eosinophils % 1 % Basophils % 0 % Neutrophils # 8.9 H (1.3-7.7) k/uL Lymphocytes # 0.7 L (1.0-4.8) k/uL Monocytes # 0.2 (0-1.0) k/uL Eosinophils # 0.1 (0-0.7) k/uL Basophils # 0.0 (0-0.2) k/uL PT 10.1 (10.0-12.5) sec INR 0.9 (<1.2) APTT 23.2 (22.0-30.0) sec Sodium 137 (137-145) mmol/L Potassium 4.2 (3.5-5.1) mmol/L Chloride 103 (98-107) mmol/L Carbon Dioxide 23 (22-30) mmol/L Anion Gap 11 mmol/L BUN 30 H (7-17) mg/dL Creatinine 0.90 (0.52-1.04) mg/dL Est GFR (CKD-EPI)AfAm 72 (>60 ml/min/1.73 sqM) Est GFR (CKD-EPI)NonAf 62 (>60 ml/min/1.73 sqM) Glucose 140 H (74-99) mg/dL Calcium 8.7 (8.4-10.2) mg/dL Total Bilirubin 0.4 (0.2-1.3) mg/dL AST 34 (14-36) U/L ALT 27 (4-34) U/L Alkaline Phosphatase 83 (38-126) U/L Total Protein 6.5 (6.3-8.2) g/dL Albumin 3.6 (3.5-5.0) g/dL Lipase 133 (23-300) U/L Blood Type Blood Type Recheck Bld Type Recheck Status Antibody Screen Spec Expiration Date 10/29/23 Range/Units 00:50 WBC (3.8-10.6) k/uL RBC (3.80-5.40) m/uL Hgb (11.4-16.0) gm/dL Hct (34.0-46.0) % MCV (80.0-100.0) fL MCH (25.0-35.0) pg MCHC (31.0-37.0) g/dL RDW (11.5-15.5) % Plt Count (150-450) k/uL MPV Neutrophils % % Lymphocytes % % Monocytes % % Eosinophils % % Basophils % % Neutrophils # (1.3-7.7) k/uL Lymphocytes # (1.0-4.8) k/uL Monocytes # (0-1.0) k/uL Eosinophils # (0-0.7) k/uL Basophils # (0-0.2) k/uL PT (10.0-12.5) sec INR (<1.2) APTT (22.0-30.0) sec Sodium (137-145) mmol/L Potassium (3.5-5.1) mmol/L Chloride (98-107) mmol/L Carbon Dioxide (22-30) mmol/L Anion Gap mmol/L BUN (7-17) mg/dL Creatinine (0.52-1.04) mg/dL Est GFR (CKD-EPI)AfAm (>60 ml/min/1.73 sqM) Est GFR (CKD-EPI)NonAf (>60 ml/min/1.73 sqM) Glucose (74-99) mg/dL Calcium (8.4-10.2) mg/dL Total Bilirubin (0.2-1.3) mg/dL AST (14-36) U/L ALT (4-34) U/L Alkaline Phosphatase (38-126) U/L Total Protein (6.3-8.2) g/dL Albumin (3.5-5.0) g/dL Lipase (23-300) U/L Blood Type A Negative Blood Type Recheck A Neg Bld Type Recheck Status No Antibody Screen NEGATIVE Spec Expiration Date 11/01/20232349 Disposition Clinical Impression: Nausea and vomiting Disposition: HOME SELF-CARE Condition: Stable Instructions (If sedation given, give patient instructions): Acute Nausea and Vomiting (ED) Prescriptions: Ondansetron Odt [Zofran Odt] 4 mg PO Q8HR PRN #12 tab PRN Reason: Nausea Is patient prescribed a controlled substance at d/c from ED?: No Referrals: Damien Donahue MD [Primary Care Provider] - 1-2 days
[2023-10-29 00:34] VITALS: TEMP 98.7
[2023-10-29 00:46] LABS: Basophils % (A) 0 %; Eosinophils # (A) 0.1 k/uL (0-0.7); Eosinophils % (A) 1 %; HCT 36.9 % (34.0-46.0); HGB 11.9 gm/dL (11.4-16.0); Lymphocytes # (A) 0.7 k/uL (1.0-4.8); Lymphocytes % (A) 7 %; MCH 29.1 pg (25.0-35.0); MCHC 32.3 g/dL (31.0-37.0); MCV 89.9 fL (80.0-100.0); Mean Platelet Volume 7.8; Monocytes # (A) 0.2 k/uL (0-1.0); Monocytes % (A) 2 %; Neutrophils # (A) 8.9 k/uL (1.3-7.7); Neutrophils % (A) 89 %; Platelet Count 228 k/uL (150-450); RBC 4.11 m/uL (3.80-5.40); RDW 13.3 % (11.5-15.5)
[2023-10-29] MEDS: SODIUM CHLORIDE 0.9% 1,000 ML IV STA (00:49)
[2023-10-29 00:50] LABS: INR 0.9 (<1.2); Partial Thromboplastin Time 23.2 sec (22.0-30.0); Prothrombin Time 10.1 sec (10.0-12.5)
[2023-10-29 01:21] LABS: ALT 27 U/L (4-34); AST 34 U/L (14-36); African American GFR (CKD) 72 (>60 ml/min/1.73 sqM); Albumin 3.6 g/dL (3.5-5.0); Alkaline Phosphatase 83 U/L (38-126); Anion Gap 11 mmol/L; Blood Urea Nitrogen 30 mg/dL (7-17); Calcium 8.7 mg/dL (8.4-10.2); Carbon Dioxide 23 mmol/L (22-30); Chloride 103 mmol/L (98-107); Glucose 140 mg/dL (74-99); Lipase 133 U/L (23-300); Non-African American GFR(CKD) 62 (>60 ml/min/1.73 sqM); Potassium 4.2 mmol/L (3.5-5.1); Sodium 137 mmol/L (137-145); Total Bilirubin 0.4 mg/dL (0.2-1.3); Total Protein 6.5 g/dL (6.3-8.2)
[2023-10-29 05:08] VITALS: RESP 18
[2023-10-29] MEDS: ONDANSETRON 4 MG ODT STARTER PACK 2 TAB BTL PO STA (05:14)
[2023-10-29 05:41] VITALS: BP 130/80; PULSE 70
== END 2023-10-29 05:31 | disposition home or self-care (01) ==
LOC: EC 00:02
DX: R11.2 Nausea with vomiting, unspecified (principal); I25.10 Atherosclerotic heart disease of native coronary artery without angina pectoris; K21.9 Gastro-esophageal reflux disease without esophagitis; E78.5 Hyperlipidemia, unspecified; I10 Essential (primary) hypertension; E03.9 Hypothyroidism, unspecified; F32.A Depression, unspecified; Z79.82 Long term (current) use of aspirin; Z86.59 Personal history of other mental and behavioral disorders; Z79.899 Other long term (current) drug therapy; Z95.1 Presence of aortocoronary bypass graft; Z79.01 Long term (current) use of anticoagulants; Z79.890 Hormone replacement therapy; Z88.8 Allergy status to other drugs, medicaments and biological substances
CPT/HCPCS: 36415; 86900; 86901; 80053; 83690; 85025; 85610; 85730; 86850; 99284; 96360; S0119

== ENCOUNTER → 2023-12-12 | Outpatient (CLI) | payer MEDICARE ==
[2023-12-12 11:18] LABS: African American GFR (CKD) 62 (>60 ml/min/1.73 sqM); Blood Urea Nitrogen 27 mg/dL (7-17); Non-African American GFR(CKD) 54 (>60 ml/min/1.73 sqM)
--- NOTE | 2023-12-16 11:19 | CT ---
EXAMINATION TYPE: CT Chest Abd Pelvis w con CT DLP: 1592.10 mGycm, Automated exposure control for dose reduction was used. DATE OF EXAM: 12/12/2023 1:01 PM COMPARISON: None. CLINICAL INDICATION:Female, 78 years old with history of C44.520 SKIN CA; PHH, Hx skin ca in anus reg ion Technique: CT Chest Abd Pelvis w con; Multiple axial images were obtained. Two-dimensional coronal an d sagittal reconstructions were obtained. Contrast used:80 mL of Isovue 300 with IV Contrast, Oral contrast used: with Oral Contrast Findings: CHEST: LUNGS/ PLEURA: The lung parenchyma appears unremarkable. AIRWAY: Patent and unremarkable. HEART: Size within normal limits. MEDIASTINUM: No gross evidence of pathologically enlarged adenopathy. Small number of mildly prominen t paratracheal lymph nodes are identified and stable. VASCULATURE: No aortic aneurysm. Right chest wall subclavian approach Mediport catheter distal ti p terminating at the cavoatrial junction. MUSCULOSKELETAL: No acute osseous abnormalities. SOFT TISSUES/LYMPH NODES: Unremarkable. LOWER NECK: No significant findings. ABDOMEN: ABDOMEN LIVER: Unremarkable GALLBLADDER AND BILE DUCTS: Unremarkable. PANCREAS: Unremarkable. SPLEEN: Unremarkable. ADRENAL GLANDS: Unremarkable. KIDNEYS AND URETERS: No evidence of hydronephrosis or renal calculus. The ureters are unremarkable. PELVIS BLADDER: Unremarkable REPRODUCTIVE: Unremarkable. ABDOMEN & PELVIS STOMACH AND BOWEL: Hiatal hernia containing stomach. Contrast filled esophagus suggesting reflux No e vidence of bowel obstruction. PERITONEUM: No evidence of pneumoperitoneum or free fluid. VASCULATURE: No evidence of aortic aneurysm. MUSCULOSKELETAL: No acute osseous abnormalities LYMPH NODES: No gross evidence for lymphadenopathy. SOFT TISSUE/ABDOMINAL WALL: Unremarkable IMPRESSION: 1. Stable examination with no significant change in mildly enlarged mediastinal lymph nodes. 2. Moderate size hiatal hernia. Contrast throughout the esophagus indicating reflux. 3. No pathologically enlarged lymph nodes within the abdomen or pelvis. Follow up recommendations for incidental pulmonary nodules are per [facility] [employer] or [employer].
== END | disposition home or self-care (01) ==
LOC: RADPROMAIN 10:33
PROVIDERS: ATTEND Internal Medicine Hematology & Oncology
DX: K44.9 Diaphragmatic hernia without obstruction or gangrene (principal); C44.520 Squamous cell carcinoma of anal skin; K21.9 Gastro-esophageal reflux disease without esophagitis; E86.0 Dehydration; I82.491 Acute embolism and thrombosis of other specified deep vein of right lower extremity; I26.99 Other pulmonary embolism without acute cor pulmonale; R59.0 Localized enlarged lymph nodes
CPT/HCPCS: 82565; 84520; 71260; 74177; 36415; J1642; Q9967

== ENCOUNTER → 2023-12-30 | Outpatient (CLI) | payer MEDICARE ==
--- NOTE | 2023-12-30 11:50 | MM ---
Reason for Exam: Clinical finding. Last mammogram was performed 1 year(s) and 2 month(s) ago. Patient History: Menarche at age 14. First Full-Term at age 36. Late child-bearing (after 30). Postmenopausal. Other cancer, age 73. Maternal aunt had breast cancer at or over age 50. Risk Values: Sophia 5 year model risk: 2.4%. NCI Lifetime model risk: 4.6%. Tissue Density: There are scattered areas of fibroglandular density. Findings: Analyzed By CAD. Benign bilateral vascular calcifications. Unchanged nodularity medial left breast. Of nodular asymmetry inferior right breast does not persist on additional views. No significant change from prior exams. Overall Assessment: Benign, BI-RAD 2 Management: Screening Mammogram of both breasts in 1 year. Further clinical management of patient's lateral right breast tenderness. Results were given to the patient verbally at the time of exam. Patient should continue monthly self-breast exams. A clinical breast exam by your physician is recommended on an annual basis. This exam should not preclude additional follow-up of suspicious palpable abnormalities. Note on Sophia scores and lifetime risk: 1. A Sophia score greater than 3% is considered moderate risk. If this is the case, consider specialist referral to assess eligibility for a risk reducing agent. 2. If overall lifetime risk for the development of breast cancer is 20% or higher, the patient may qualify for future screening with alternating mammogram and breast MRI. Electronically signed and approved by: Carol Sawant M.D. Radiologist
== END | disposition home or self-care (01) ==
LOC: RADMAMWWP 10:54
PROVIDERS: ATTEND Family Medicine
DX: R92.323 Mammographic fibroglandular density, bilateral breasts (principal); N64.4 Mastodynia; Z78.0 Asymptomatic menopausal state; Z80.3 Family history of malignant neoplasm of breast
CPT/HCPCS: 77066; G0279; 77062

== ENCOUNTER → 2024-09-17 | Outpatient (CLI) | payer MEDICARE ==
--- NOTE | 2024-09-17 16:42 | US ---
EXAMINATION TYPE: US venous doppler duplex LE LT DATE OF EXAM: 09/17/2024 4:07 PM COMPARISON: US(09/18/2019) CLINICAL INDICATION: Female, 79 years old with history of M79.662 PAIN IN LEFT LOWER LEG; bilateral s welling, pt states she is feeling "muscle cramp" in lt calf, Pain TECHNIQUE: The lower extremity deep venous system is examined utilizing real time linear array sonog carlene with graded compression, color doppler sonography, and spectral doppler. SIDE PERFORMED: Left FINDINGS: VESSELS IMAGED: Common Femoral Vein Deep Femoral Vein Greater Saphenous Vein * Femoral Vein Popliteal Vein Small Saphenous Vein * Proximal Calf Veins (* superficial vessels) Left Leg: Positive for DVT involving the small saphenous vein and extending to its junction with the proximal Popliteal Vein. Color Doppler imaging shows patency of remaining vessels. IMPRESSION: Exam positive for venous thrombosis involving the small saphenous vein extending to its junction with the proximal popliteal vein. [facility], , 09/17/2024 4:39 PM
== END | disposition home or self-care (01) ==
LOC: RADUSWWP 15:10
PROVIDERS: ATTEND Internal Medicine Hematology & Oncology
DX: I82.432 Acute embolism and thrombosis of left popliteal vein (principal); R22.42 Localized swelling, mass and lump, left lower limb

== ENCOUNTER → 2024-09-20 | Outpatient (CLI) | payer MEDICARE ==
[2024-09-20 13:48] LABS: African American GFR (CKD) 59 (>60 ml/min/1.73 sqM); Blood Urea Nitrogen 32 mg/dL (7-17); Non-African American GFR(CKD) 51 (>60 ml/min/1.73 sqM)
--- NOTE | 2024-09-20 14:05 | US ---
EXAMINATION TYPE: US venous doppler duplex LE RT DATE OF EXAM: 09/20/2024 1:41 PM COMPARISON: US 2021 CLINICAL INDICATION: Female, 79 years old with history of [id number] SQUAMOUS CELL CARCINOMA OF ANAL SKI N; Hx of DVT in right pop vein in on us. Pt had DVT found in left leg on 09/17/24. Patient i s on Eliquis. TECHNIQUE: The lower extremity deep venous system is examined utilizing real time linear array sonog carlene with graded compression, color doppler sonography, and spectral doppler. SIDE PERFORMED: Right FINDINGS: VESSELS IMAGED: Common Femoral Vein Deep Femoral Vein Greater Saphenous Vein * Femoral Vein Popliteal Vein Small Saphenous Vein * Proximal Calf Veins (* superficial vessels) Right Leg: Some color defect seen in popliteal vein. The vessel appears to compress incompletely. Ap pearance of hyperechoic chronic thrombus as seen on prior exam. Color flow seen in all remaining compressible veins. IMPRESSION: Chronic, nonocclusive DVT popliteal vein. No new or occlusive DVT is identified in the remainder of t he right lower extremity. [facility], , 09/20/2024 2:03 PM
--- NOTE | 2024-09-21 13:24 | CT ---
EXAMINATION TYPE: CT angio chest CT DLP: 360.5 mGycm, Automated exposure control for dose reduction was used. DATE OF EXAM: 09/20/2024 3:18 PM COMPARISON: Multiple CT chest abdomen and pelvis with most recent 12/12/2023, CTA chest 06/18/2019 CLINICAL INDICATION:Female, 79 years old with history of I26.99 pulmonary embolism; DEREK TECHNIQUE/CONTRAST: CTA scan of the thorax is performed with IV Contrast, patient injected with 80ML mL of Isovue 370, pu lmonary embolism protocol. MIP images are created and reviewed. FINDINGS: Pulmonary Artery: Few scattered filling defects identified within the left lower lobe and right middl e lobe segmental and subsegmental pulmonary arteries. The pulmonary artery is of normal size. Reflux of contrast into the IVC. Lungs/Pleura: No pleural effusion or pneumothorax. Patchy nodular opacities throughout the right uppe r lobe and superior segment of the right lower lobe. Similar atelectasis/scarring within the medial a spect of the left upper lobe Stable right middle lobe nodule measuring up to 4 mm (series 5, image 75 ). Airway: Large airways are patent. Heart: Enlarged. Coronary artery calcifications. Post CABG changes. Trace pericardial effusion. Michelle l anus calcifications. No intraventricular septal bowing. Vasculature: No evidence of aortic aneurysm. Right chest wall subclavian approach Mediport catheter d istal tip terminating at the low SVC. Atherosclerotic calcification of the aorta and its branches. Mediastinum: Stable mildly enlarged mediastinal lymph nodes measuring up to 1.1 cm short axis. Musculoskeletal: No acute osseous abnormalities. Midline sternotomy wires. Mild multilevel degenerati ve disc disease. Soft Tissues: Unremarkable. Lower neck: No significant findings. Upper Abdomen: Moderate size hiatal hernia redemonstrated.. IMPRESSION: 1. Acute appearing bilateral pulmonary emboli involving the segmental and subsegmental pulmonary mike betito of the right middle and left lower lobes. No evidence for right heart strain. 2. Patchy nodular opacities primarily within the right upper lobe and superior segment of the right l ower lobe. Findings are concerning for infectious/inflammatory nodularity. 3. Stable mildly enlarged mediastinal lymph nodes. 4. Moderate-sized hiatal hernia redemonstrated. A Red level critical message alert has been initiated for Mich Willy via the [employer] Critical Results System on 09/20/2024 6:22 PM. This message alert has been sent to [facility] via the [employer] es provided by the clinician for the receipt of Radiology Critical Findings. Message ID [id number]. [facility], , 09/20/2024 6:23 PM
== END | disposition home or self-care (01) ==
LOC: RADCTMAIN 12:21
PROVIDERS: ATTEND Internal Medicine Hematology & Oncology
DX: I26.99 Other pulmonary embolism without acute cor pulmonale (principal); I82.491 Acute embolism and thrombosis of other specified deep vein of right lower extremity; C44.520 Squamous cell carcinoma of anal skin; E86.0 Dehydration; I82.531 Chronic embolism and thrombosis of right popliteal vein; K44.9 Diaphragmatic hernia without obstruction or gangrene; R91.8 Other nonspecific abnormal finding of lung field; J98.4 Other disorders of lung; R59.0 Localized enlarged lymph nodes; Z85.828 Personal history of other malignant neoplasm of skin
CPT/HCPCS: 82565; 84520; 93971; 71275; 36415; Q9967